=== PATIENT | male | born 1930 | race Caucasian/White ===

== ENCOUNTER 2017-10-13 22:43 | Emergency (ER) | payer MEDICARE, BC ==
[~2017-10-13 22:43] MED LIST: ISOVUE-370 76%-LOCM 1 ML ONE
--- NOTE | 2017-10-13 23:29 | RAD ---
SEMI UPRIGHT PORTABLE CHEST ONE VIEW: History: 87-year-old male with chest injury following an unwitnessed fall with hip and left rib pain. FINDINGS: Left ICD. Borderline heart size. Atherosclerosis and old granulomatous disease with some mild scatter ed chronic changes. No pneumothorax or pleural effusion. IMPRESSION: Atherosclerosis and old granulomatous disease and mild scattered chronic changes. No pneumothorax, pl eural effusion, or other acute process. POS: [facility]
--- NOTE | 2017-10-13 23:30 | RAD ---
AP PELVIS ONE VIEW: History: Pelvic pain following an unwitnessed fall. FINDINGS: There is bony demineralization. Status post total right hip replacement. Arthrosis changes of the lef t hip joint. No evidence for acute pelvic or hip fracture. IMPRESSION: No acute pelvic or left hip fracture. Right total hip replacement. POS: [facility]
--- NOTE | 2017-10-13 23:31 | RAD ---
RIGHT HIP TWO VIEWS: History: 87-year-old male with right hip pain following a fall. FINDINGS: Total right hip replacement changes are noted with some mild sinus ossificans. No acute fracture. IMPRESSION: No acute fracture or dislocation. POS: [facility]
[2017-10-14] MEDS ORDERED: Fentanyl 100 MCG/2 ML VIAL ONE (00:13)
[2017-10-14 00:31] LABS: POC Est. GFR-MDRD-African-Amer Greater than 60; POC Estimated GFR-MDRD 50
[2017-10-14] MEDS ORDERED: Acetaminophen 500 MG TAB ONE (02:10)
--- NOTE | 2017-10-14 10:15 | CT ---
PRELIMINARY REPORT/[facility]/EMERGENCY AFTER HOURS PROCEDURE: EXAM: CT Abdomen and Pelvis With Intravenous Contrast EXAM DATE/TIME: Exam ordered 10/14/2017 12:52 AM CLINICAL HISTORY: 87 years old, male; Pain; Abdominal pain; Generalized TECHNIQUE: Axial computed tomography images of the abdomen and pelvis with intravenous contrast. Coronal reforma tted images were created and reviewed. CONTRAST: 60 mL of ISOVUE administered intravenously. COMPARISON: No relevant prior studies available. FINDINGS: Lower thorax: There is subpleural atelectasis of the dependent portions of the lungs. Pacemaker leads in satisfactory position. ABDOMEN: Liver: There are no focal liver lesions present. Gallbladder and bile ducts: Normal. No calcified stones. No ductal dilation. Pancreas: The pancreas is normal. No ductal dilation. Spleen: The spleen is normal. Adrenals: The adrenal glands are normal. Kidneys and ureters: There are multiple simple renal cysts. No hydronephrosis. Stomach and bowel: The colon is normal. There is moderate colonic constipation. The stomach is normal . The duodenum is unremarkable. No obstruction. No mucosal thickening. Appendix: A normal appendix is identified. 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 Additional sma ller bladder diverticula are also present. Reproductive: Unremarkable as visualized. ABDOMEN and PELVIS: Intraperitoneal space: Normal. No free air. No significant fluid collection. Bones/joints: No acute fracture. No dislocation. Soft tissues: Normal. Vasculature: The vasculature demonstrates diffuse mild atherosclerotic calcification. No abdominal aortic aneurysm. Lymph nodes: Normal. No enlarged lymph nodes. IMPRESSION: 1. No acute abdominal pelvic pathology. 2. There is an incompletely evaluated 3.3 cm RIGHT urinary bladder diverticulum. Additional smaller b ladder diverticula are also present. If not already performed, consider nonemergent urology evaluatio n. Thank you for allowing us to participate in the care of your patient. Dictated and Authenticated by: Ricardo Downs MD 10/14/2017 1:31 AM Central Time ([place] & [place]) FINAL REPORT EMERGENT AFTER HOURS CT ABDOMEN AND PELVIS WITH IV CONTRAST: Date: 10-14-17 History: Right flank pain. Unwitnessed fall at long term. Dementia. Patient also complains of left hip and right sided rib pain. IMPRESSION: 1. Partial visualization of cardiac pacemaking leads in the right atrium and right ventricle. 2. Prominent degenerative changes within the lumbar spine and visualized lower thoracic spine with po st-surgical changes of the lumbar spine. Right total hip prosthesis is noted. 3. Coronary artery calcifications as well as vascular calcifications in the abdominal and iliac arter ies. 4. Approximately 4.6 cm right renal cyst. 5. Approximately 2.4 cm increased density cystic lesion mid portion left kidney which is difficult to further characterize. This could potentially represent a hyperdense renal cyst but pre contrast imag ing was not performed. 6. Mild thickening of the urinary bladder, some of which could be related to incomplete distention. I n addition, there is a right sided urinary bladder diverticulum. There is additional smaller divertic dianna also present involving the urinary bladder. 7. No CT evidence of appendicitis. 8. No free fluid or fluid collection seen in the abdomen or pelvis. 9. Findings are in agreement with the preliminary report by SHARON. Follow up CT scan abdomen and pelvi s with IV contrast and 3 phase imaging is suggested for evaluation of the left renal lesion and furth er evaluation of the urinary bladder diverticula. POS: [facility]
== END 2017-10-14 02:30 | disposition home or self-care (01) ==
LOC: ERS 22:43
DX: S70.02XA Contusion of left hip, initial encounter (principal); S20.211A Contusion of right front wall of thorax, initial encounter; F03.90 Unspecified dementia, unspecified severity, without behavioral disturbance, psychotic disturbance, mood disturbance, and anxiety; W19.XXXA Unspecified fall, initial encounter
CPT/HCPCS: 71010; 72170; 74177; 82565; 96374; J3010

== ENCOUNTER 2017-10-15 04:51 | Emergency (ER) | payer MEDICARE, BC ==
[2017-10-15 07:11] LABS: Bilirubin Negative (Negative); Blood, Urine Large (Negative); Glucose, Urine (Dipstick) Negative (Negative); Ketone, Urine Negative (Negative); Nitrite Negative (Negative); Protein, Urine (Dipstick) Negative (Neg-Trace); Urobilinogen 0.2 mg/dL (0.2-1.0)
[2017-10-15 07:12] LABS: Bacteria/HPF None Seen HPF (None Seen); Hyaline Casts/LPF 0-3 HYALINE CAST LPF (0-3 Hyaline); RBC/HPF GREATER THAN 50-TNTC HPF (0-3); Squamous Epithelial 0-3 HPF (0-3); WBC/HPF 0-3 HPF (0-3)
--- NOTE | 2017-10-15 08:40 | CT ---
PRELIMINARY REPORT/[facility]/EMERGENCY AFTER HOURS PROCEDURE: EXAM: CT Chest Without Intravenous Contrast EXAM DATE/TIME: 10/15/2017 6:53 AM CLINICAL HISTORY: 87 years old, male; Injury or trauma; Fall; Initial encounter; Sprain or strain; Additional info: Harshad with HX of dementia presents to er C/O r rib pain. Seen in er 10/13 after having fall in closet, C/O r sided chest and hip and general abd pain. They did CT abd pelvis, cxr, r hip, and r pelvis xray, all neg fo r any acute process. Sent home with dx with rib contusion and hip contusion. The overnight director client said pt started C/O r rib pain around 0230, gave tylenol and it didn't make him better so they decide d to bring him. TECHNIQUE: Axial computed tomography images of the chest without intravenous contrast. Coronal reformatted images were created and reviewed. COMPARISON: No relevant prior studies available. FINDINGS: Lungs: Lungs are well aerated without a focal area of consolidation. Pleural space: Unremarkable. No pneumothorax. No significant effusion. Heart: Calcification of the coronary arteries is present. No significant pericardial effusion. Bones/joints: Degenerative changes within the thoracic spine -Severe degenerative changes left and ri ght glenohumeral joint. No acute fracture. No dislocation. Hemangioma T5 Soft tissues: Unremarkable. Vasculature: Calcification of the aorta. Lymph nodes: Numerous calcified lymph nodes are present within the mediastinum and hilum. These are likely the radiographic manifestation of granulomatous disease. Tubes, lines and devices: -Pacemaker is present via a left subclavian approach. IMPRESSION: Lungs are well aerated without a focal area of consolidation. No clearly visualized rib fracture Thank you for allowing us to participate in the care of your patient. Dictated and Authenticated by: Severiano Morejon MD 10/15/2017 7:34 AM Central Time ([place] & [place]) FINAL REPORT CT CHEST WITHOUT CONTRAST: FINDINGS/IMPRESSION: I agree with the preliminary report provided. No definite displaced rib fractures evident. The bony h emangioma is at the T4 vertebral level rather than as described at T5. There are some areas of inters titial prominence involving the lungs. There are two areas of tree and bud nodularity seen within the lateral aspect of the right middle lobe which may reflect changes of a bronchiolitis. Small sub 4 mm pulmonary nodules are seen scattered throughout both lungs. No confluent airspace opacity is noted. There are calcified lymph nodes consistent with prior granulomatous disease. There are coronary arter y and thoracic aorta calcifications. POS: [facility]
== END 2017-10-15 08:47 | disposition home or self-care (01) ==
LOC: ERS 04:51
DX: S20.211A Contusion of right front wall of thorax, initial encounter (principal); I10 Essential (primary) hypertension; F03.90 Unspecified dementia, unspecified severity, without behavioral disturbance, psychotic disturbance, mood disturbance, and anxiety; W19.XXXA Unspecified fall, initial encounter
CPT/HCPCS: 71250; 81003; 81015

== ENCOUNTER 2018-04-26 16:50 | Emergency (ER) | payer MEDICARE, BC ==
[2018-04-26] MEDS ORDERED: Adacel (T-DAP) 0.5 ML VIAL ONE (17:10)
--- NOTE | 2018-04-26 17:50 | CT ---
CT OF THE BRAIN WITHOUT CONTRAST: Date: 04/26/18 COMPARISON: None. HISTORY: Fell and hit head prior to arrival. Unknown loss of consciousness. Head injury. TECHNIQUE: Multiple contiguous axial images were obtained in a CT of the brain without contrast. FINDINGS: There are scattered hypodensities in the subcortical and periventricular white matter, likely seconda ry to small vessel ischemic disease. No large confluent infarction is seen. There is no evidence of h ydrocephalus, intracranial hemorrhage or extra-axial fluid collections. The calvarium and overlying soft tissues are unremarkable. The visualized paranasal sinuses and masto id air cells are well aerated. IMPRESSION: No evidence of acute intracranial abnormality. POS: [facility]
--- NOTE | 2018-04-26 17:57 | CT ---
CT OF THE CERVICAL SPINE WITHOUT CONTRAST: Date: 04/26/18 COMPARISON: None. HISTORY: Fell and hit head just prior to arrival. Neck pain. TECHNIQUE: Multiple contiguous axial images were obtained in a CT of the cervical spine without contrast. Sagitt al and coronal reformats were performed. FINDINGS: There are large, bulky osteophytes in the anterior aspect of the cervical spine. The vertebral bodies demonstrate normal height without acute fracture or subluxation. No prevertebral soft tissue swellin g is seen The posterior facets are well aligned. Normal alignment of the skull base with the cervical spine is seen. Calcified granuloma in the right lung apex. Thyroid is unremarkable. IMPRESSION: Degenerative changes of the cervical spine without acute osseous abnormality. POS: [facility]
--- NOTE | 2018-04-26 17:58 | RAD ---
SINGLE VIEW PELVIS: Date: 04/26/18 COMPARISON: 10/13/17. HISTORY: Fall from standing and hit head on unknown object. Pelvic pain. FINDINGS: Single view of the pelvis shows no evidence of acute fracture or dislocation. The patient has a right hip prosthesis without perihardware lucency or fracture. No significant degenerative changes are see n in the left hip. Degenerative changes are seen in the lumbar spine. IMPRESSION: No evidence of acute osseous abnormality. POS: [facility]
== END 2018-04-26 18:46 | disposition home or self-care (01) ==
LOC: ERS 16:50
DX: S00.01XA Abrasion of scalp, initial encounter (principal); I10 Essential (primary) hypertension; M19.90 Unspecified osteoarthritis, unspecified site; F03.90 Unspecified dementia, unspecified severity, without behavioral disturbance, psychotic disturbance, mood disturbance, and anxiety; Z79.899 Other long term (current) drug therapy; Z23 Encounter for immunization; W18.30XA Fall on same level, unspecified, initial encounter
CPT/HCPCS: 70450; 72125; 72170; 90471; 90715

== ENCOUNTER 2018-05-14 15:44 | Outpatient (CLI) | payer MEDICARE, BC | END 2018-05-14 15:45 | disposition home or self-care (01) | LOC: BICRAD 15:44 | PROVIDERS: ATTEND Nurse Practitioner Family | DX: M54.9 Dorsalgia, unspecified (principal); M41.9 Scoliosis, unspecified; M47.896 Other spondylosis, lumbar region; M47.894 Other spondylosis, thoracic region; M47.892 Other spondylosis, cervical region | CPT/HCPCS: 72040; 72070; 72100 ==

== ENCOUNTER 2018-05-26 21:03 | Inpatient (IN) | payer MEDICARE, BC ==
--- NOTE | 2018-05-26 21:47 | RAD ---
AP VIEW OF THE CHEST: 05/26/18 INDICATION: residential patient with dementia with altered mental status. FINDINGS: Chronic lung changes are stable. Dual lead pacemaker is unchanged. Pulmonary vasculature is within no rmal limits. No pleural effusion or pneumothorax is evident. No acute osseous abnormality is evident. IMPRESSION: No acute cardiopulmonary abnormality. POS: [facility]
[2018-05-26 22:06] LABS: Mean Corpuscular HGB CONC 34.6 g/dL (32.0-36.0); Mean Corpuscular Hemoglobin 36.3 pg (27.0-31.0); Mean Platelet Volume 6.9 fL (7.4-10.4); Platelet Count 151 thou/uL (130-400); RBC Distribution Width 13.2 % (11.5-14.5); Red Blood Cell (RBC) Count 2.75 mill/uL (4.70-6.10); White Blood Cell (WBC) Count 5.8 thou/uL (4.8-10.8)
[2018-05-26 22:19] LABS: #Eosinphils 0.1 thou/uL (0.0-0.7); #Lymphocytes 0.5 thou/uL (1.20-3.40); #Monocytes 0.6 thou/uL (0.11-0.59); #Neutrophils 4.7 thou/uL (1.40-6.50); %Basophils 0.2 % (0.0-1.0); %Eosinophils 1.5 % (0.0-10.0); %Lymphocytes 7.7 % (21.0-51.0); %Monocytes 9.7 % (0.0-10.0); %Neutrophils 80.9 % (42.0-75.0); MDiff Complete? YES; Macrocytosis SLIGHT = 6-15 cells (100X) (0-5/hpf); Ovalocytes SLIGHT = 2-5 cells (100X) (0-1/hpf)
[2018-05-26 22:30] LABS: ALT (SGPT) 12 U/L (8-55); AST (SGOT) 12 U/L (5-34); Albumin 3.2 g/dL (3.4-4.8); Alkaline Phosphatase 123 U/L (40-150); Anion Gap 13 mmol/L (10-20); BUN (Urea Nitrogen) 58 mg/dL (8.4-25.7); Bilirubin, Total 0.9 mg/dL (0.2-1.2); CK (CPK) 29 U/L (30-200); Calc. Creatinine Clearance 0 mL/min (70-130); Calcium 9.1 mg/dL (7.8-10.44); Carbon Dioxide 24 mmol/L (23-31); Chloride 107 mmol/L (98-107); Estimated GFR-MDRD 41; Globulin 2.8 g/dL (2.4-3.5); Glucose 113 mg/dL (83-110); Lipase 34 U/L (8-78); Potassium 4.1 mmol/L (3.5-5.1); Sodium 140 mmol/L (136-145)
[2018-05-26 22:32] LABS: CKMB 2.9 ng/mL (0-6.6); Troponin I 0.113 ng/mL (< 0.028)
--- NOTE | 2018-05-26 23:35 | CT ---
CT OF THE BRAIN WITHOUT CONTRAST: 05/26/18 INDICATION: Altered mental status and dementia. COMPARISON: Prior exam dated 04/26/18. FINDINGS: No acute infarct, hemorrhage or hydrocephalus is present. Generalized cerebral and cerebellar atrophy is stable. Mild chronic small white matter ischemic change is similar appearing. Skull and extracran ial soft tissues appear within normal limits. IMPRESSION: No acute intracranial abnormality. POS: [facility]
[2018-05-27 04:17] LABS: Troponin I 0.128 ng/mL (< 0.028)
--- NOTE | 2018-05-27 04:43 | HP ---
CHIEF COMPLAINT: Diarrhea, weakness. HISTORIAN: Patient's daughter reliable. HISTORY OF PRESENT ILLNESS: This is an 87-year-old male with past medical history of dementia, arthritis, hypertension, hearing deficit, status post pacemaker, presented with diarrhea for about 3 days per the daughter. Patient has been having diarrhea for 3 days and patient has been getting weaker and weaker. Patient has been losing weight due to constant diarrhea. Per the daughter, patient was started on Imodium, but Imodium did not have any help. Apparently, his diarrhea has been worsening and has a foul smell to it. However , per daughter, patient is around his baseline. Patient has history of dementia. Therefore, patient is able to just recognize the daughter and also patient knows himself. Per daughter, patient is also having associated symptoms of cough, which has also started about a day ago. REVIEW OF SYSTEMS: Positive for cough and diarrhea with fatigue and negative for all other ones that are stated in the HPI. PAST MEDICAL HISTORY: DM, arthritis, hypertension, s/ pacemaker PSH: S/p pace maker FH: Patient parents are and family history are not contributory to this visit Social Hx: Non smoker, Doesn't drink, no illicit drug use Allergies: NSAIDS CODE STATUS: Patient is FULL CODE. CURRENT MEDICATIONS: 1. Patient is on donepezil 10 mg. 2. Fluticasone spray. 3. Patient takes meloxicam 15 mg a daily. 4. Patient takes Namenda 5 mg oral 2 times a daily. 5. Patient takes Tylenol 650 mg oral every 6 hours p.r.n. 6. Patient takes B complex vitamin B12 orally a daily. 7. Patient takes vitamin C. 8. Patient takes vitamin D3. PHYSICAL EXAMINATION: VITAL SIGNS: In the ED, patient's vital was 134/72, pulse of 64, respiratory rate 16, temperature is 98.7 on admission. Patient's vital was 128/81, pulse 68 , respiratory rate of 16, temperature of 98.3. GENERAL APPEARANCE: Patient is lying in bed comfortably, not in any acute distress. HEENT: Normocephalic, atraumatic. Pupils equal, round, and reactive to light. Extraocular movements are intact. No scleral icterus was noted. NECK: No JVD. Trachea is midline. RESPIRATORY: Patient has cough with some wheezes at the anterior lung shook, but no rhonchi is appreciated. CARDIAC: Positive S1, S2. Regular rate and rhythm. ABDOMEN: Patient has some tenderness with palpation of the abdomen especially at the epigastric region and lower quadrants; however, no ecchymosis noted. No masses palpated. EXTREMITIES: Patient has 5/5 upper extremity strength and 4/5 lower extremity strength. The patient had mild edema as noted in the lower extremities. Pulses are intact bilaterally in the lower extremities. NEUROLOGIC: No focal neurologic deficits noted. Patient is currently oriented to person, but not to place, not to time. SKIN: Warm, dry, and intact. LABORATORY DATA: CT of the head without contrast, negative for any intracranial abnormalities. Troponin ordered was 0.113. Chemistry: BUN 58, creatinine is 1.61. Chest x-ray shows no acute cardiopulmonary abnormality. CBC shows white count of 5.8, hemoglobin of 10.0, hematocrit of 28.8, platelet of 151. ASSESSMENT AND PLAN: 1. Diarrhea most likely due to Clostridium difficile. Patient has been started empirically on vancomycin p.o. 125. We will get Clostridium difficile of the stool. We will follow up on the Clostridium difficile order. We will do CT of the abdomen and pelvis. IVF. Contact precaution. 2. Cough. We will rule out pneumonia. We will get CT of the chest, abdomen, and pelvis. 3. Acute kidney injury most likely due to dehydration. We will give patient IV fluids for hydration. We will follow up morning BMP. 4. Macrocytic anemia. At this point, H&H is 10.0. We will get B12 levels and we will start patient on iron pills if needed. Patient takes home B12 pills we will continue this medication. We will continue to follow CBC to trend the hemoglobin. 5. Hypertension. We will monitor patient's blood pressure closely. We will give the patient hypertensive medication if needed. 6. History of arthritis, currently stable. 7. Dementia. We will restart the patient's medications. Patient has dementia medications. 8. Deep venous thrombosis and gastrointestinal prophylaxis. We will start patient on heparin prophylactically and will do SCDs. We will do Pepcid for GI prophylaxis. MTDD
[2018-05-27] MEDS ORDERED: Vancomycin HCl 1 GM in Premix Bag 1 BAG IVPB SCH (05:00)
[2018-05-27] MEDS ORDERED: Piperacillin/Tazobactam 2.25 GM in Sodium Chloride 0.9% 100 ML IVPB SCH ×2 (05:00→09:00)
[2018-05-27] MEDS ORDERED: Sodium Chloride 0.9% 1,000 ML IV SCH (05:00)
[2018-05-27 05:49] LABS: #Eosinphils 0.1 thou/uL (0.0-0.7); #Lymphocytes 0.4 thou/uL (1.20-3.40); #Monocytes 0.5 thou/uL (0.11-0.59); %Eosinophils 2.6 % (0.0-10.0); %Lymphocytes 8.7 % (21.0-51.0); %Monocytes 9.7 % (0.0-10.0); %Neutrophils 79.1 % (42.0-75.0); Hemoglobin 9.4 g/dL (14.0-18.0); Mean Corpuscular HGB CONC 33.7 g/dL (32.0-36.0); Mean Corpuscular Hemoglobin 35.5 pg (27.0-31.0); Mean Platelet Volume 7.5 fL (7.4-10.4); Platelet Count 137 thou/uL (130-400); RBC Distribution Width 13.1 % (11.5-14.5); Red Blood Cell (RBC) Count 2.64 mill/uL (4.70-6.10)
[2018-05-27 05:54] LABS: ALT (SGPT) 12 U/L (8-55); AST (SGOT) 10 U/L (5-34); Alkaline Phosphatase 114 U/L (40-150); Anion Gap 14 mmol/L (10-20); BUN (Urea Nitrogen) 57 mg/dL (8.4-25.7); Bilirubin, Total 0.8 mg/dL (0.2-1.2); Calc. Creatinine Clearance 30 mL/min (70-130); Calcium 9.2 mg/dL (7.8-10.44); Carbon Dioxide 22 mmol/L (23-31); Chloride 108 mmol/L (98-107); Estimated GFR-MDRD 44; Globulin 2.7 g/dL (2.4-3.5); Glucose 128 mg/dL (83-110); Protein, Total 5.7 g/dL (5.8-8.1); Sodium 140 mmol/L (136-145)
[2018-05-27 05:59] LABS: CKMB 2.5 ng/mL (0-6.6); Troponin I 0.129 ng/mL (< 0.028)
--- NOTE | 2018-05-27 06:09 | PDOC.EVN ---
Event Note - Event Note Event Note: RN called - Pt had SVT on tele. Will check Mg
[2018-05-27] MEDS: Piperacillin/Tazobactam 2.25 GM in Sodium Chloride 0.9% 100 ML IVPB SCH ×4 (06:30→23:08)
[2018-05-27 07:33] LABS: Bilirubin Negative (Negative); Blood, Urine Moderate (Negative); Glucose, Urine (Dipstick) Negative (Negative); Leukocyte Small (Negative); Nitrite Negative (Negative); Protein, Urine (Dipstick) Trace mg/dL (Neg-Trace); Specific Gravity, Urine 1.019 (1.002-1.036); Urobilinogen 0.2 mg/dL (0.2-1.0); pH, Urine 5.5 (5.0-9.0)
[2018-05-27 07:36] LABS: Hyaline Casts/LPF 4-6 HYALINE CAST LPF (0-3 Hyaline); RBC/HPF 21-50 HPF (0-3); Squamous Epithelial 0-3 HPF (0-3)
[2018-05-27 07:42] LABS: Yeast-AUWi Flag 57.8 (0-25.0)
[2018-05-27 07:53] LABS: Clarity Cloudy (Clear)
[2018-05-27 07:56] LABS: Bacteria/HPF 1+ HPF (None Seen)
[2018-05-27 07:59] LABS: Yeast-All Forms None Seen HPF (None Seen)
[2018-05-27] MEDS ORDERED: Amiodarone HCl 150 MG, Admixture Fee 1 EACH in Dextrose 5% in Water 100 ML IVPB SCH (08:45)
[2018-05-27] MEDS ORDERED: Amiodarone HCl 450 MG, Admixture Fee 1 EACH in Dextrose 5% in Water 250 ML IVPB SCH (09:00)
--- NOTE | 2018-05-27 09:06 | CON ---
DATE OF CONSULTATION: 05/27/2018 REASON FOR CONSULTATION: Wide complex tachycardia. HISTORY OF PRESENT ILLNESS: Mr. Bailey is an 87-year-old gentleman with underlying history of ICD/pa cer placed in [place]. The details around the placement are unknown. He has no previous history of underlying coronary artery disease or bypass surgery. This was performed in [place]. He recently presented with recurrent diarrhea over the last several days. There was a concern for C. difficile. He was subsequently admitted. On telemetry monitoring, he continued to have intermitten t runs of wide complex tachycardia, although appeared irregular. Blood pressure was fairly stable. Given his underlying dementia, the history is limited. Most of the history is obtained from his daug hterCoreen, whom I spoke with today. PAST MEDICAL HISTORY: As above. HOME MEDICATIONS: Include Namenda, Tylenol, B complex, multiple vitamins, Flonase and benazepril. SOCIAL HISTORY: No current tobacco or alcohol use. REVIEW OF SYSTEMS: Unobtainable. He has underlying dementia. PHYSICAL EXAMINATION: VITAL SIGNS: Blood pressure 120/58, pulse 75, temperature 98.5. GENERAL: He is not oriented to time, person, or place. NEUROLOGIC: The patient is alert and oriented times 3 with no focal neurologic deficits. HEENT: Sclerae without icterus. Mouth has moist mucous membranes with normal pallor. NECK: No JVD. Carotid upstroke brisk. No bruits bilaterally. LUNGS: Clear to auscultation with unlabored respirations. BACK: No scoliosis or kyphosis. CARDIAC: Regular rate and rhythm with normal S1 and S2. No S3 or S4 noted. No significant rubs, mu rmurs, thrills, or gallops noted throughout the precordium. PMI is not displaced. There is no ilir ternal heave. ABDOMEN: Soft, nontender, nondistended. No peritoneal signs present. No hepatosplenomegaly. No ab normal striae. EXTREMITIES: 2+ femoral and 2+ dorsalis pedis pulses. No cyanosis, clubbing, or edema. SKIN: No gross abnormalities. PERTINENT LABORATORY DATA: Hemoglobin 9.4, creatinine 1.51, peak troponin is 0.129. Telemetry monitoring shows wide a complex tachycardia and appears paced. He has intermittent atrial sensed, ventricular paced. IMPRESSION: 1. Wide complex tachycardia. 2. Status post pacemaker/ICD. 3. Dementia. RECOMMENDATIONS: Add amiodarone IV due to continued elevated heart rate. This does appear to be con sistent with SVT, but we will assess via pacer/ICD with interrogation. May also involve EP. Continu e antibiotic treatment. He has been cultured for Clostridium difficile.
[2018-05-27 09:44] LABS: ALT (SGPT) 11 U/L (8-55); AST (SGOT) 10 U/L (5-34); Albumin 3.1 g/dL (3.4-4.8); Alkaline Phosphatase 115 U/L (40-150); Bilirubin, Direct 0.4 mg/dL (0.1-0.3); Bilirubin, Total 0.8 mg/dL (0.2-1.2); Protein, Total 5.7 g/dL (5.8-8.1)
[2018-05-27] MEDS ORDERED: Sodium Chloride 0.9% 500 ML IVPB SCH (10:30)
[2018-05-27] MEDS: Vancomycin HCl 25 MG/ML Oral PO SCH ×3 (10:44→20:18)
[2018-05-27] MEDS: Sodium Chloride 0.9% 1,000 ML IV SCH ×3 (10:47→23:08)
--- NOTE | 2018-05-27 14:38 | CON ---
DATE OF CONSULTATION: 05/27/2018 REASON FOR CONSULTATION: Acute kidney injury. REASON FOR ADMISSION: Diarrhea. HISTORY OF PRESENT ILLNESS: This is an 87-year-old elderly male with a past medical history positive for dementia, hypertension, arthritis, came to the hospital with diarrhea and was found to have acut e kidney injury. His creatinine was 1.6 and this morning was 1.61. The patient was started on IV fluids. The patient was not able to give a good history. The patient does have dementia. No fevers, chills, no nausea, vomiting. PAST MEDICAL HISTORY: Positive for dementia, hypertension, arthritis. PAST SURGICAL HISTORY: Not known. HOME MEDICATIONS: Donepezil, meloxicam, Namenda and vitamin C, D3. ALLERGIES: NSAIDs. SOCIAL HISTORY: No smoking, alcohol, or illicit drug abuse. FAMILY HISTORY: No history of kidney disease. REVIEW OF SYSTEMS: Could not be obtained due to dementia and patient was lethargic. PHYSICAL EXAMINATION: GENERAL: Elderly white male, lethargic, somnolent. VITAL SIGNS: Temperature 98.5, pulse 75, respiratory rate 18, blood pressure 122/50. LABORATORY DATA: Potassium 4.0, BUN is 57, creatinine is 1.5, bicarbonate is 22. Hemoglobin is 9.4. ASSESSMENT AND PLAN: 1. Acute kidney injury on chronic kidney stage 3, most likely from volume depletion. Agree with hyd ration and monitor. 2. Hypoalbuminemia, moderate. 3. Metabolic acidosis. 4. Anemia, rule out bleed. 5. Hypertension, stable. 6. Continue IV fluids. Continue supportive care. Will follow. Thank you for the consult.
[2018-05-27] MEDS ORDERED: Iopamidol 370 76% 100 ML VIAL ONE (15:14)
--- NOTE | 2018-05-27 15:24 | PDOC.PN ---
- Subjective Encounter Start Date: 05/27/18 Encounter Start Time: 08:40 Pt seen for followup re: diarrhea. Pt is nonverbal, unable to complete ROS. - Objective MAR Reviewed: Yes Vital Signs & Weight: Vital Signs (12 hours) Temp Pulse Resp BP Pulse Ox 05/27/18 12:13 99.5 F 74 21 H 139/64 94 L 05/27/18 07:57 98.5 F 75 19 122/58 L 95 05/27/18 04:00 97.8 F 79 18 96/55 L 95 Weight Admit Weight 143 lb Weight 143 lb I&O: 05/26/18 05/27/18 05/28/18 06:59 06:59 06:59 Intake Total 333 Output Total 100 Balance 233 Result Diagrams: 05/28/18 08:24 05/28/18 08:24 EKG Reviewed by me: Yes (Tele: NSR, SVT) Phys Exam - Physical Examination appears frail HEENT: moist MMs, sclera anicteric, oral pharynx no lesions, 2+ tonsils Neck: no nodes, no JVD, supple, full ROM Respiratory: no wheezing, no rales, no rhonchi, clear to auscultation bilateral Cardiovascular: RRR, no rub S1, S2 Gastrointestinal: soft, non-tender, no distention, positive bowel sounds Musculoskeletal: no edema Neurological: moves all 4 limbs Psychiatric: normal affect Deviation from normal: Unable to assess orientation Dx/Plan (1) Diarrhea Code(s): R19.7 - DIARRHEA, UNSPECIFIED Status: Acute Comment: await stool C. diff test, continue vancomycin (2) SVT (supraventricular tachycardia) Code(s): I47.1 - SUPRAVENTRICULAR TACHYCARDIA Status: Acute Comment: monitor potassium and magnesium, consult cardiology (3) LETI (acute kidney injury) Code(s): N17.9 - ACUTE KIDNEY FAILURE, UNSPECIFIED Status: Acute Comment: glenda prerenal, continue IV fluids and recheck creatinine (4) Moderate protein-calorie malnutrition Code(s): E44.0 - MODERATE PROTEIN-CALORIE MALNUTRITION Status: Chronic - Plan * . Review of Systems - Medications/Allergies Allergies/Adverse Reactions: Allergies Allergy/AdvReac Type Severity Reaction Status Date / Time NSAIDS (Non-Steroidal Allergy Verified 05/27/18 04:51 Anti-Inflamma Medications: Current Medications Piperacillin Sod/Tazobactam (Sod 2.25 gm/ Sodium Chloride) 100 mls @ 200 mls/ hr IVPB Q6HR [facility] Last Admin: 05/27/18 12:16 Dose: 100 mls Amiodarone HCl 450 mg/Miscellaneous Medication 1 each/ Dextrose/Water 259 mls @ 0 mls/hr IVPB INF [facility] Last Admin: 05/27/18 09:39 Dose: 259 mls Sodium Chloride (Normal Saline 0.9%) 1,000 mls @ 150 mls/hr IV .[id number] [facility] Last Admin: 05/27/18 12:16 Dose: 1,000 mls Sodium Chloride (Flush - Normal Saline) 10 ml IVF Q12HR [facility] Last Admin: 05/27/18 10:10 Dose: Not Given Sodium Chloride (Flush - Normal Saline) 10 ml IVF PRN PRN PRN Reason: Saline Flush Vancomycin HCl (First Vancomycin) 125 mg PO TID [facility] Last Admin: 05/27/18 10:44 Dose: 125 mg
--- NOTE | 2018-05-27 15:33 | CT ---
CONTRAST ENHANCED CT IMAGES OF CHEST CONTRAST ENHANCED CT IMAGES OF THE ABDOMEN AND PELVIS: History: Diarrhea. Patient is a poor historian. History of possible colitis. Oral contrast was not given as the patient could not tolerate oral contrast. A total of 60 ml of iodi nated contrast was given intravenously. FINDINGS: Images demonstrate an intracardiac pacing device. There is atherosclerotic calcification of the aorta and coronary arteries. There is an approximately 4 mm area of spiculated density in the right upper lobe. This lesion is too small to characterize. In addition, multiple other small lung parenchymal densities also seen in the left upper lobe (Image 29), lingula (Image 37). These may represent areas of scarring although metas tatic disease cannot be excluded. In addition tiny lung parenchymal lesions also seen in the right lo wer lobe. Additional lesions also seen in the left lower lobe. Some calcifications seen in the subcarinal lymph nodes. The liver and spleen are unremarkable. The gallbladder is distended without evidence of obvious galls tones. Adrenal glands are unremarkable. Bilateral hypodense renal lesion seen, most compatible with r enal cortical cysts and cystic lesions. Correlation with sonography may be of use to further charlxeie hernandez. The patient has had extensive facet degenerative changes and hypertrophy with spinal stenosis and pos terior lumbar laminectomy changes. The loops of small bowel are not significantly dilated. The colon is not significantly distended. No significant evidence of colonic enhancement seen. The urinary blad mary is slightly thickened. There appears to be a right sided hypodense cystic lesion adjacent to the urinary bladder, possibly representing a right bladder diverticulum. IMPRESSION: 1. Numerous small lung parenchymal lesions, too small to characterize. Metastatic disease cannot be e xcluded although these may represent area of previous scarring. 2. Areas of calcification seen in the mediastinal lymph nodes, possibly due to previous infectious et iologies. 3. Extensive coronary artery and valvular calcifications. 4. Hypodense area seen in the kidneys, possibly representing renal cysts. 5. Previous lumbar spine surgical changes. 6. No definite evidence of extensive colonic enhancement or thickening is seen. 7. No definite evidence of bowel obstruction or ileus or evidence of free intraperitoneal air seen. POS: [facility]
[2018-05-28] MEDS: Piperacillin/Tazobactam 2.25 GM in Sodium Chloride 0.9% 100 ML IVPB SCH ×3 (05:46→17:37)
[2018-05-28 09:05] LABS: Hemoglobin 8.5 g/dL (14.0-18.0); Mean Corpuscular HGB CONC 33.3 g/dL (32.0-36.0); Mean Corpuscular Hemoglobin 35.4 pg (27.0-31.0); Mean Platelet Volume 7.1 fL (7.4-10.4); Platelet Count 147 thou/uL (130-400); RBC Distribution Width 13.2 % (11.5-14.5); Red Blood Cell (RBC) Count 2.41 mill/uL (4.70-6.10); White Blood Cell (WBC) Count 8.5 thou/uL (4.8-10.8)
[2018-05-28 09:13] LABS: Anion Gap 13 mmol/L (10-20); BUN (Urea Nitrogen) 37 mg/dL (8.4-25.7); Calc. Creatinine Clearance 39 mL/min (70-130); Calcium 8.9 mg/dL (7.8-10.44); Carbon Dioxide 21 mmol/L (23-31); Chloride 114 mmol/L (98-107); Estimated GFR-MDRD 56; Glucose 110 mg/dL (83-110); Potassium 3.9 mmol/L (3.5-5.1); Sodium 144 mmol/L (136-145)
[2018-05-28 09:39] LABS: Acanthocytes SLIGHT = 1-5 cells (100X) (None Seen); Band 29 % (5-11); Eosinophils 2 % (0-10); Lymphocytes 7 % (21-51); MDiff Complete? YES; Macrocytosis SLIGHT = 6-15 cells (100X) (0-5/hpf); Monocytes 2 % (0-10); Neutrophil 60 % (42-75); Ovalocytes SLIGHT = 2-5 cells (100X) (0-1/hpf); PLT Morphology Comment Appears Adequate; Toxic Granulation SLIGHT
[2018-05-28] MEDS: Sodium Chloride 0.9% 1,000 ML IV SCH ×3 (09:48→23:04)
[2018-05-28] MEDS: Vancomycin HCl 25 MG/ML Oral PO SCH ×3 (09:49→21:50)
--- NOTE | 2018-05-28 10:40 | PQF ---
CLINICAL DOCUMENTATION IMPROVEMENT CLARIFICATION FORM: ICD-10 Updated PLEASE DO AN ADDENDUM TO THE PROGRESS NOTE WITH ANY DOCUMENTATION UPDATES OR ADDITIONS AND CARRY THROUGH TO DC SUMMARY. THANK YOU. DATE: 05/28 ATTN: DR. JAIRO HUERTA Please exercise your independent, professional judgment in responding to the clarification form. Clinical indicators are provided on the bottom of this form for your review. Please check appropriate box(s): [ ] Demand Ischemia [ ] Insignificant Lab Value [ ] Other diagnosis [ X ] Unable to determine For continuity of documentation, please document condition throughout progress notes and discharge summary. Thank You. CLINICAL INDICATORS - SIGNS / SYMPTOMS/ LABS are present in the medical record: TROPONIN I 05/26 - 8: 0.113, 0.128, 0.129 ER PHYSICIAN DOCUMENTATION 05/26: INDETERMINATE TROPONIN RISK FACTORS: DIARRHEA ADVANCED AGE (87) LETI DEHYDRATION TREATMENT: SERIAL CARDIAC ENZYMES IVF (NS 05/26 - PRESENT) CARDIOLOGY CONSULT THANK YOU! Jaycee (This form is maintained as a part of the permanent medical record) 2014 [employer]. All Rights Reserved Jaycee Rosas RN, BSN [email or web address] Office: [phone] MARY
--- NOTE | 2018-05-28 10:46 | PQF ---
CLINICAL DOCUMENTATION IMPROVEMENT CLARIFICATION FORM: ICD-10 Updated PLEASE DO AN ADDENDUM TO THE PROGRESS NOTE WITH ANY DOCUMENTATION UPDATES OR ADDITIONS AND CARRY THROUGH TO DC SUMMARY. THANK YOU. DATE: 05/28 ATTN: DR. JAIRO HUERTA Please exercise your independent, professional judgment in responding to the clarification form. Clinical indicators are provided on the bottom of this form for your review. Please check appropriate box(s): ___X____ I (concur) with the Nursing Admission Skin Assessment findings as stated below. [ ] Pressure Ulcer: (Stage I: Erythema; Stage II: Partial thickness; Stage III : Full thickness; Stage IV: Necrosis to muscle/bone) [ ] Location: POA: [ ] Yes [ ] No [ ] Unable to determine Stage (I to IV): (Left Right Bilateral N/A ) [ ] Location: POA: [ ] Yes [ ] No [ ] Unable to determine Stage (I to IV): (Left Right Bilateral N/A ) [ ] No pressure ulcer diagnosis [ ] Other diagnosis [ ] Unable to determine In addition, please specify: Present on Admission (POA): [ X ] Yes [ ] No [ ] Unable to determine For continuity of documentation, please document condition throughout progress notes and discharge summary. Thank You. CLINICAL INDICATORS - SIGNS / SYMPTOMS / LABS NURSING ADMISSION SKIN ASSESSMENT 05/27: MIDLINE UPPER BACK STAGE II PRESSURE ULCER; BILATERAL UNDER BUTTOCKS STAGE II PRESSURE ULCERS RISK FACTORS: ADVANCED DEMENTIA MODERATE PROTEIN CALORIE MALNUTRITION ADVANCED AGE (87) TREATMENTS: WAFFLE MATTRESS TURN Q 2HRS THANK YOU! Jaycee (This form is maintained as a part of the permanent medical record) 2014 [employer]. All Rights Reserved Jaycee Rosas RN, BSN [email or web address] Office: [phone] MARY
--- NOTE | 2018-05-28 11:04 | PQF ---
CLINICAL DOCUMENTATION IMPROVEMENT CLARIFICATION FORM: ICD-10 Updated PLEASE DO AN ADDENDUM TO THE PROGRESS NOTE WITH ANY DOCUMENTATION UPDATES OR ADDITIONS AND CARRY THROUGH TO DC SUMMARY. THANK YOU. DATE: 05/28 ATTN: DR. JAIRO HUERTA Please exercise your independent, professional judgment in responding to the clarification form. Clinical indicators are provided on the bottom of this form for your review. Please check appropriate box(s) to clarify if the following diagnosis has been ruled in or ruled out: RULE OUT PNEUMONIA [ ] Ruled in diagnosis [ ] Continue to treat [ ] Resolved [ X ] Ruled out diagnosis [ ] Other diagnosis [ ] Unable to determine For continuity of documentation, please document condition throughout progress notes and discharge summary. Thank You. CLINICAL INDICATORS - SIGNS / SYMPTOMS / LABS PHYSICIAN H&P DOCUMENTATION 05/26: ASSESSMENT & PLAN: 2) COUGH. WE WILL RULE OUT PNEUMONIA. WE WILL GET CT OF CHEST/ABDOMEN/PELVIS SPEECH CONSULT DOCUMENTATION 05/27: SWALLOWING EVALUATION: PT WAS OBSERVED W/ STRAW SIPS OF THIN LIQUID (BOTH CONTROLLED & UNCONTROLLED). INSTRUMENT MAKER APPRENTICE OBSERVED PT WITH COUGHING/CHOKING FOLLOWING BOTH ADMINISTRATIONS OF THIN BY STRAW. PT WAS ALSO OBSERVED WITH THIN BY CUP (PT ADMINISTERED) AND INSTRUMENT MAKER APPRENTICE OBSERVED PT WITH WET BREATH SOUNDS VIA CERVICAL AUSCULTATION WELL COUGHING FOLLOWING THE THIN SWALLOW. PT ABLE TO TOLERATE SIPS OF NECTAR BY SPOON & CUP. INSTRUMENT MAKER APPRENTICE RECOMMENDS PT BE CLEARED FOR PUREE PLUS SAUCE WITH NECTAR THICK LIQUIDS BY CUP OR SPOON. PT WILL REQUIRE USE OF A FEEDER. RISK FACTORS: ADVANCED AGE (87) DEMENTIA COUGH TREATMENTS: SPEECH CONSULT W/RECOMMENDATION FOR PUREE PLUS SAUCE W/ NECTAR THICK LIQUIDS CT CHEST/ABDOMEN/PELVIS (05/27) THANK YOU! Jaycee (This form is maintained as a part of the permanent medical record) 2014 [employer]. All Rights Reserved Jaycee Rosas RN, BSN [email or web address] Office: [phone] [facility]
--- NOTE | 2018-05-28 13:43 | PDOC.CTH ---
Cardiology Progress Note - Subjective Pt looks much better today. after IVF, HR now stable and is in the 80's. - Objective Vital Signs Temp Pulse Resp BP Pulse Ox 05/28/18 12:12 97.9 F 71 20 154/72 H 96 05/28/18 09:47 98.2 F 64 17 152/66 H 96 05/28/18 04:00 97.5 F L 66 18 145/65 H 96 Admit Weight 143 lb Weight 149 lb 1.6 oz 05/27/18 05/28/18 05/29/18 06:59 06:59 06:59 Intake Total 4183 Output Total 100 Balance 4083 - Physical Examination General/Neuro: NAD Neck: carotid US brisk, no JVD present Lungs: CTA, other: (upper airwqay breath sounds) Heart: RRR Abdomen: soft Extremities: + femoral B - Labs Result Diagrams: 05/28/18 08:24 05/28/18 08:24 Troponin/CKMB CK-MB (CK-2) 2.5 ng/mL (0-6.6) 05/27/18 04:00 Troponin I 0.129 ng/mL (< 0.028) H 05/27/18 04:00 - Assessment/Plan 1. WCT 2. C. Dificile Pt responded to IVF. DC tele Abx I will follow peripherally
--- NOTE | 2018-05-28 17:42 | PRG ---
DATE OF SERVICE: 05/28/2018 SUBJECTIVE: Patient was seen and examined at bedside and overnight events noted. Patient denies any shortness of breath or chest pain or palpitation. No history of nausea or vomiting or diarrhea or f ever or chills or cramps. OBJECTIVE: GENERAL: This is an elderly male in no apparent distress. VITAL SIGNS: Temperature 97.8, pulse 100, respiratory rate 18, blood pressure 138/99. HEENT: Atraumatic, normocephalic. Oral mucosa is moist. NECK: Supple. CARDIOVASCULAR: S1, S2 heard. Rate and rhythm regular. RESPIRATORY: Clear to auscultation. GASTROINTESTINAL: Abdomen is soft. MUSCULOSKELETAL: No tenderness. No edema. DERMATOLOGIC: No skin rash. NEUROLOGIC: Alert and awake and oriented x3. No focal neurologic deficits. Moving all the extremiti es. PSYCHIATRIC: Mood and affect normal. LABORATORY DATA: Potassium is 3.9, BUN is 37, creatinine is 1.2. ASSESSMENT AND PLAN: 1. Acute kidney injury on chronic kidney disease, much better. 2. Edema, controlled. 3. Hypertension, . 4. Anemia. 5. Renal function is stable. I will sign off. Please call back with any questions.
[2018-05-28] MEDS ORDERED: Acetaminophen 325 MG TAB PO PRN (18:57)
--- NOTE | 2018-05-28 19:00 | PDOC.PN ---
- Subjective Encounter Start Date: 05/28/18 Encounter Start Time: 08:20 Pt seen for followup re: clostridium difficile diarrhea. Not answering questions consistently, unable to complete ROS. - Objective MAR Reviewed: Yes Vital Signs & Weight: Vital Signs (12 hours) Temp Pulse Resp BP Pulse Ox 05/28/18 16:10 97.8 F 71 20 138/99 H 97 05/28/18 12:12 97.9 F 71 20 154/72 H 96 05/28/18 09:47 98.2 F 64 17 152/66 H 96 Weight Admit Weight 143 lb Weight 149 lb 1.6 oz I&O: 05/27/18 05/28/18 05/29/18 06:59 06:59 06:59 Intake Total 4183 Output Total 100 Balance 4083 Result Diagrams: 05/28/18 08:24 05/28/18 08:24 EKG Reviewed by me: Yes (Tele: AV-paced rhythm) Phys Exam - Physical Examination appears malnourished HEENT: moist MMs, sclera anicteric, oral pharynx no lesions, 2+ tonsils Neck: no nodes, no JVD, supple, full ROM Respiratory: no wheezing, no rales, no rhonchi, clear to auscultation bilateral Cardiovascular: RRR, no rub S1, s2 Gastrointestinal: soft, non-tender, no distention, positive bowel sounds Neurological: moves all 4 limbs Psychiatric: normal affect Deviation from normal: Oriented to person, unable to assess orientation to place or time Deviation from normal: findings as documented by nursing staff Dx/Plan (1) Clostridium difficile diarrhea Code(s): A04.72 - ENTEROCOLITIS D/T CLOSTRIDIUM DIFFICILE, NOT SPCF RECUR Status: Acute Comment: continue vancomycin, add probiotics (2) SVT (supraventricular tachycardia) Code(s): I47.1 - SUPRAVENTRICULAR TACHYCARDIA Status: Acute Comment: appreciate cardiology service input (3) Moderate protein-calorie malnutrition Code(s): E44.0 - MODERATE PROTEIN-CALORIE MALNUTRITION Status: Chronic Comment: appreciate dietitian input (4) Dementia Code(s): F03.90 - UNSPECIFIED DEMENTIA WITHOUT BEHAVIORAL DISTURBANCE Status: Chronic Comment: resume home medications (5) LETI (acute kidney injury) Code(s): N17.9 - ACUTE KIDNEY FAILURE, UNSPECIFIED Status: Resolved - Plan * . No evidence of pneumonia, discontinue Zosyn Review of Systems - Medications/Allergies Allergies/Adverse Reactions: Allergies Allergy/AdvReac Type Severity Reaction Status Date / Time NSAIDS (Non-Steroidal Allergy Verified 05/27/18 04:51 Anti-Inflamma Medications: Current Medications Acetaminophen (Tylenol) 650 mg PO Q6HR PRN PRN Reason: Pain Ascorbic Acid (Vitamin C) 500 mg PO DAILY [facility] Cholecalciferol (Vitamin D3) 5,000 units PO DAILY [facility] Cyanocobalamin (Vitamin B-12) 1,000 mcg PO DAILY [facility] Donepezil HCl (Aricept) 10 mg PO HS [facility] Amiodarone HCl 450 mg/Miscellaneous Medication 1 each/ Dextrose/Water 259 mls @ 0 mls/hr IVPB INF [facility] Last Admin: 05/27/18 09:39 Dose: 259 mls Sodium Chloride (Normal Saline 0.9%) 1,000 mls @ 150 mls/hr IV .Q6H40M [facility] Last Admin: 05/28/18 09:48 Dose: 1,000 mls Meloxicam (Mobic) 15 mg PO DAILY [facility] Memantine (Namenda) 5 mg PO BID [facility] (Fluticasone Propionate [Flovent Diskus] 50 Mcg) 50 mcg IH DAILY PRN PRN Reason: Nasal Congestion Sodium Chloride (Flush - Normal Saline) 10 ml IVF Q12HR [facility] Last Admin: 05/28/18 10:00 Dose: Not Given Sodium Chloride (Flush - Normal Saline) 10 ml IVF PRN PRN PRN Reason: Saline Flush Vancomycin HCl (First Vancomycin) 125 mg PO TID [facility] Last Admin: 05/28/18 16:07 Dose: 125 mg
[2018-05-28] MEDS: Donepezil HCl 10 MG TAB PO SCH (21:50)
[2018-05-29] MEDS: Sodium Chloride 0.9% 1,000 ML IV SCH ×5 (03:23→18:54)
[2018-05-29] MEDS ORDERED: Fluticasone Propionate Nasal Spray 16 gm Bottle NASAL PRN (04:45)
[2018-05-29 06:02] LABS: Anion Gap 12 mmol/L (10-20); BUN (Urea Nitrogen) 27 mg/dL (8.4-25.7); Calc. Creatinine Clearance 47 mL/min (70-130); Calcium 9.7 mg/dL (7.8-10.44); Carbon Dioxide 22 mmol/L (23-31); Chloride 114 mmol/L (98-107); Estimated GFR-MDRD 69; Glucose 100 mg/dL (83-110); Sodium 144 mmol/L (136-145)
[2018-05-29 06:54] LABS: Band 7 % (5-11); Hemoglobin 9.3 g/dL (14.0-18.0); Hypochromia SLIGHT = 6-15 cells (100X) (0-5/hpf); Lymphocytes 7 % (21-51); MDiff Complete? YES; Mean Corpuscular HGB CONC 33.1 g/dL (32.0-36.0); Mean Platelet Volume 7.1 fL (7.4-10.4); Monocytes 4 % (0-10); Neutrophil 82 % (42-75); PLT Morphology Comment Appears Adequate; Platelet Count 174 thou/uL (130-400); RBC Distribution Width 13.2 % (11.5-14.5); Red Blood Cell (RBC) Count 2.64 mill/uL (4.70-6.10); White Blood Cell (WBC) Count 8.9 thou/uL (4.8-10.8)
[2018-05-29] MEDS: Vancomycin HCl 25 MG/ML Oral PO SCH ×3 (09:28→20:10)
[2018-05-29] MEDS: Meloxicam 15 MG TAB PO SCH (09:29)
[2018-05-29] MEDS: Cyanocobalamin (Vitamin B-12) 1,000 MCG TAB PO SCH (09:29)
[2018-05-29] MEDS: Ascorbic Acid 500 mg Chewable Tablet PO SCH (09:29)
[2018-05-29] MEDS: Saccharomyces boulardii 250 MG CAP PO SCH (09:29)
--- NOTE | 2018-05-29 16:47 | PDOC.PN ---
- Subjective Encounter Start Date: 05/29/18 Encounter Start Time: 08:40 Pt seen for followup re: clostridium difficile diarrhea. Denies chest pain, shortness of breath, fevers or chills. - Objective MAR Reviewed: Yes Vital Signs & Weight: Vital Signs (12 hours) Temp Pulse Resp BP Pulse Ox 05/29/18 12:09 97.2 F L 80 18 186/90 H 96 05/29/18 08:00 98.1 F 82 20 149/78 H 94 L 05/29/18 07:42 98.1 F 82 20 94 L Weight Admit Weight 143 lb Weight 149 lb 1.6 oz I&O: 05/28/18 05/29/18 05/30/18 06:59 06:59 06:59 Intake Total 4183 3120 Output Total 100 Balance 4083 3120 Result Diagrams: 05/29/18 05:38 05/29/18 05:38 Additional Labs: Labs reviewed by me Phys Exam - Physical Examination Constitutional: NAD HEENT: moist MMs, sclera anicteric, oral pharynx no lesions, 2+ tonsils Neck: no nodes, no JVD, supple, full ROM Respiratory: no wheezing, no rales, no rhonchi, clear to auscultation bilateral Cardiovascular: RRR, no rub S1, S2 Gastrointestinal: soft, non-tender, no distention, positive bowel sounds Neurological: moves all 4 limbs Psychiatric: normal affect Deviation from normal: Oriented to person, not to place or time Dx/Plan (1) Clostridium difficile diarrhea Code(s): A04.72 - ENTEROCOLITIS D/T CLOSTRIDIUM DIFFICILE, NOT SPCF RECUR Status: Acute Comment: continue vancomycin and probiotics (2) Dementia Code(s): F03.90 - UNSPECIFIED DEMENTIA WITHOUT BEHAVIORAL DISTURBANCE Status: Chronic Comment: pt more alert today, answering questions (3) Moderate protein-calorie malnutrition Code(s): E44.0 - MODERATE PROTEIN-CALORIE MALNUTRITION Status: Chronic Comment: appreciate dietitian input (4) LETI (acute kidney injury) Code(s): N17.9 - ACUTE KIDNEY FAILURE, UNSPECIFIED Status: Resolved (5) SVT (supraventricular tachycardia) Code(s): I47.1 - SUPRAVENTRICULAR TACHYCARDIA Status: Resolved - Plan continue antibiotics, PT/OT, out of bed/ambulate * . Review of Systems - Review of Systems Constitutional: negative: fever, chills, sweats, weakness, malaise Respiratory: negative: Cough, Shortness of Breath, SOB with Excertion, Pleuritic Pain, Wheezing Cardiovascular: negative: chest pain, palpitations, orthopnea, paroxysmal nocturnal dyspnea, edema, light headedness Gastrointestinal: Diarrhea. negative: Nausea, Vomiting, Abdominal Pain, Constipation, Melena, Hematochezia Genitourinary: negative: Dysuria, Frequency, Incontinence, Hematuria, Retention - Medications/Allergies Allergies/Adverse Reactions: Allergies Allergy/AdvReac Type Severity Reaction Status Date / Time NSAIDS (Non-Steroidal Allergy Verified 05/27/18 04:51 Anti-Inflamma Medications: Current Medications Acetaminophen (Tylenol) 650 mg PO Q6HR PRN PRN Reason: Pain Ascorbic Acid (Vitamin C) 500 mg PO DAILY [facility] Last Admin: 05/29/18 09:29 Dose: 500 mg Cholecalciferol (Vitamin D3) 5,000 units PO DAILY [facility] Last Admin: 05/29/18 09:29 Dose: 5,000 units Cyanocobalamin (Vitamin B-12) 1,000 mcg PO DAILY [facility] Last Admin: 05/29/18 09:29 Dose: 1,000 mcg Donepezil HCl (Aricept) 10 mg PO HS [facility] Last Admin: 05/28/18 21:50 Dose: 10 mg Fluticasone Propionate (Flonase Nasal [place]) 0 gm NASAL DAILYPRN PRN PRN Reason: NASAL CONGESTION Amiodarone HCl 450 mg/Miscellaneous Medication 1 each/ Dextrose/Water 259 mls @ 0 mls/hr IVPB INF [facility] Last Admin: 05/27/18 09:39 Dose: 259 mls Sodium Chloride (Normal Saline 0.9%) 1,000 mls @ 150 mls/hr IV .Q6H40M [facility] Last Admin: 05/29/18 10:17 Dose: Not Given Meloxicam (Mobic) 15 mg PO DAILY [facility] Last Admin: 05/29/18 09:29 Dose: 15 mg Memantine (Namenda) 5 mg PO BID [facility] Last Admin: 05/29/18 09:29 Dose: 5 mg Saccharomyces Boulardii (Florastor) 250 mg PO DAILY [facility] Last Admin: 05/29/18 09:29 Dose: 250 mg Sodium Chloride (Flush - Normal Saline) 10 ml IVF Q12HR [facility] Last Admin: 05/29/18 09:29 Dose: Not Given Sodium Chloride (Flush - Normal Saline) 10 ml IVF PRN PRN PRN Reason: Saline Flush Vancomycin HCl (First Vancomycin) 125 mg PO TID [facility] Last Admin: 05/29/18 15:21 Dose: 125 mg
[2018-05-29] MEDS: Donepezil HCl 10 MG TAB PO SCH (20:10)
[2018-05-30] MEDS: Vancomycin HCl 25 MG/ML Oral PO SCH ×3 (09:07→21:14)
[2018-05-30] MEDS: Cyanocobalamin (Vitamin B-12) 1,000 MCG TAB PO SCH (09:08)
[2018-05-30] MEDS: Saccharomyces boulardii 250 MG CAP PO SCH (09:08)
[2018-05-30] MEDS: Ascorbic Acid 500 mg Chewable Tablet PO SCH (09:08)
[2018-05-30] MEDS: Sodium Chloride 0.9% 1,000 ML IV SCH (12:58)
[2018-05-30] MEDS: Meloxicam 15 MG TAB PO SCH (12:59)
--- NOTE | 2018-05-30 15:22 | PDOC.PN ---
- Subjective Encounter Start Date: 05/30/18 Encounter Start Time: 15:21 Patient seen and examined by me this morning. Patient is mildly confused this AM but doesn't have any fever, N, Vomiting. Per patient's nurse patient ripped his IV line this morning. No acute overnight events. - Objective MAR Reviewed: Yes Vital Signs & Weight: Vital Signs (12 hours) Temp Pulse Resp BP Pulse Ox 05/30/18 11:34 98.2 F 74 16 156/82 H 95 05/30/18 08:00 97.1 F L 85 16 99 05/30/18 07:13 97.1 F L 85 16 158/85 H 99 05/30/18 04:00 97.9 F 73 16 158/64 H 99 Weight Admit Weight 143 lb Weight 151 lb I&O: 05/29/18 05/30/18 05/31/18 06:59 06:59 06:59 Intake Total 3120 Balance 3120 Result Diagrams: 05/29/18 05:38 05/29/18 05:38 Phys Exam - Physical Examination Constitutional: NAD cachectic and confused. HEENT: PERRLA, moist MMs, oral pharynx no lesions Neck: no JVD Respiratory: no wheezing, no rales, no rhonchi, clear to auscultation bilateral Cardiovascular: no significant murmur, no rub Gastrointestinal: soft, non-tender, no distention, positive bowel sounds Musculoskeletal: no edema, pulses present Neurological: non-focal, normal sensation, moves all 4 limbs Deviation from normal: A&O x 2 Skin: no rash, normal turgor, cap refill <2 seconds Dx/Plan (1) Clostridium difficile diarrhea Code(s): A04.72 - ENTEROCOLITIS D/T CLOSTRIDIUM DIFFICILE, NOT SPCF RECUR Status: Acute Comment: continue vancomycin and probiotics (2) Dementia Code(s): F03.90 - UNSPECIFIED DEMENTIA WITHOUT BEHAVIORAL DISTURBANCE Status: Chronic Comment: Patient waxes and wanes. Will monitor. (3) Moderate protein-calorie malnutrition Code(s): E44.0 - MODERATE PROTEIN-CALORIE MALNUTRITION Status: Chronic Comment: appreciate dietitian input (4) LETI (acute kidney injury) Code(s): N17.9 - ACUTE KIDNEY FAILURE, UNSPECIFIED Status: Resolved (5) SVT (supraventricular tachycardia) Code(s): I47.1 - SUPRAVENTRICULAR TACHYCARDIA Status: Resolved - Plan cont current plan of care * . Review of Systems - Review of Systems Constitutional: negative: fever, chills, sweats, weakness, malaise, other Eyes: negative: Pain, Vision Change, Conjunctivae Inflammation, Eyelid Inflammation, Redness, Other ENT: negative: Ear Pain, Ear Discharge, Nose Pain, Nose Discharge, Nose Congestion, Mouth Pain, Mouth Swelling, Throat Pain, Throat Swelling, Other Respiratory: negative: Cough, Dry, Shortness of Breath, Hemoptysis, SOB with Excertion, Pleuritic Pain, Sputum, Wheezing Cardiovascular: negative: chest pain, palpitations, orthopnea, paroxysmal nocturnal dyspnea, edema, light headedness, other Gastrointestinal: negative: Nausea, Vomiting, Abdominal Pain, Diarrhea, Constipation, Melena, Hematochezia, Other Genitourinary: negative: Dysuria, Frequency, Incontinence, Hematuria, Retention , Other Musculoskeletal: negative: Neck Pain, Shoulder Pain, Arm Pain, Back Pain, Hand Pain, Leg Pain, Foot Pain, Other Skin: negative: Rash, Lesions, Arthur, Bruising, Other Neurological: negative: Weakness, Numbness, Incoordination, Change in Speech, Confusion, Seizures, Other - Medications/Allergies Allergies/Adverse Reactions: Allergies Allergy/AdvReac Type Severity Reaction Status Date / Time NSAIDS (Non-Steroidal Allergy Verified 05/27/18 04:51 Anti-Inflamma Medications: Current Medications Acetaminophen (Tylenol) 650 mg PO Q6HR PRN PRN Reason: Pain Ascorbic Acid (Vitamin C) 500 mg PO DAILY [facility] Last Admin: 05/30/18 09:08 Dose: 500 mg Cholecalciferol (Vitamin D3) 5,000 units PO DAILY [facility] Last Admin: 05/30/18 09:08 Dose: 5,000 units Cyanocobalamin (Vitamin B-12) 1,000 mcg PO DAILY [facility] Last Admin: 05/30/18 09:08 Dose: 1,000 mcg Donepezil HCl (Aricept) 10 mg PO HS [facility] Last Admin: 05/29/18 20:10 Dose: 10 mg Fluticasone Propionate (Flonase Nasal [place]) 0 gm NASAL DAILYPRN PRN PRN Reason: NASAL CONGESTION Amiodarone HCl 450 mg/Miscellaneous Medication 1 each/ Dextrose/Water 259 mls @ 0 mls/hr IVPB INF [facility] Last Admin: 05/27/18 09:39 Dose: 259 mls Sodium Chloride (Normal Saline 0.9%) 1,000 mls @ 50 mls/hr IV .Q20H [facility] Last Admin: 05/30/18 12:58 Dose: 1,000 mls Meloxicam (Mobic) 15 mg PO DAILY [facility] Last Admin: 05/30/18 12:59 Dose: 15 mg Memantine (Namenda) 5 mg PO BID [facility] Last Admin: 05/30/18 09:08 Dose: 5 mg Saccharomyces Boulardii (Florastor) 250 mg PO DAILY [facility] Last Admin: 05/30/18 09:08 Dose: 250 mg Sodium Chloride (Flush - Normal Saline) 10 ml IVF Q12HR [facility] Last Admin: 05/30/18 09:18 Dose: 10 ml Sodium Chloride (Flush - Normal Saline) 10 ml IVF PRN PRN PRN Reason: Saline Flush Vancomycin HCl (First Vancomycin) 125 mg PO TID [facility] Last Admin: 05/30/18 14:42 Dose: 125 mg
[2018-05-30] MEDS: Donepezil HCl 10 MG TAB PO SCH (21:15)
[2018-05-31 06:04] LABS: #Lymphocytes 0.5 thou/uL (1.20-3.40); #Monocytes 0.5 thou/uL (0.11-0.59); #Neutrophils 4.8 thou/uL (1.40-6.50); %Basophils 0.1 % (0.0-1.0); %Eosinophils 0.8 % (0.0-10.0); %Lymphocytes 7.7 % (21.0-51.0); %Monocytes 8.9 % (0.0-10.0); %Neutrophils 82.5 % (42.0-75.0); Hemoglobin 9.2 g/dL (14.0-18.0); Mean Corpuscular HGB CONC 33.9 g/dL (32.0-36.0); Mean Corpuscular Hemoglobin 35.3 pg (27.0-31.0); Mean Platelet Volume 7.2 fL (7.4-10.4); Platelet Count 174 thou/uL (130-400); RBC Distribution Width 12.9 % (11.5-14.5); Red Blood Cell (RBC) Count 2.59 mill/uL (4.70-6.10); White Blood Cell (WBC) Count 5.8 thou/uL (4.8-10.8)
[2018-05-31 06:21] LABS: Anion Gap 13 mmol/L (10-20); BUN (Urea Nitrogen) 15 mg/dL (8.4-25.7); Calc. Creatinine Clearance 61 mL/min (70-130); Carbon Dioxide 23 mmol/L (23-31); Chloride 106 mmol/L (98-107); Estimated GFR-MDRD Greater than 90; Glucose 92 mg/dL (83-110); Potassium 3.4 mmol/L (3.5-5.1); Sodium 139 mmol/L (136-145)
[2018-05-31] MEDS: Meloxicam 15 MG TAB PO SCH (07:49)
[2018-05-31] MEDS: Saccharomyces boulardii 250 MG CAP PO SCH (07:49)
[2018-05-31] MEDS: Cyanocobalamin (Vitamin B-12) 1,000 MCG TAB PO SCH (07:50)
[2018-05-31] MEDS: Vancomycin HCl 25 MG/ML Oral PO SCH ×3 (07:55→20:42)
[2018-05-31] MEDS: Ascorbic Acid 500 mg Chewable Tablet PO SCH (07:56)
[2018-05-31] MEDS ORDERED: Potassium Chloride 20 MEQ TAB PO SCH (10:00)
[2018-05-31] MEDS: Sodium Chloride 0.9% 1,000 ML IV SCH (14:48)
--- NOTE | 2018-05-31 18:54 | PDOC.PN ---
- Subjective Encounter Start Date: 05/31/18 Encounter Start Time: 11:40 Patient seen at bedside. NAD. Tolerating diet. - Objective MAR Reviewed: Yes Vital Signs & Weight: Vital Signs (12 hours) Temp Pulse Resp BP Pulse Ox 05/31/18 08:00 98.1 F 85 16 98 05/31/18 07:00 98.1 F 85 16 117/66 98 Weight Admit Weight 143 lb Weight 151 lb I&O: 05/30/18 05/31/18 06/01/18 06:59 06:59 06:59 Intake Total 870 560 Output Total 300 Balance 870 260 Result Diagrams: 05/31/18 05:23 05/31/18 05:23 Phys Exam - Physical Examination Constitutional: NAD HEENT: PERRLA, moist MMs Neck: no JVD Respiratory: no wheezing, no rales, no rhonchi Cardiovascular: RRR, no significant murmur, no rub Gastrointestinal: soft, non-tender, no distention Musculoskeletal: no edema, pulses present Neurological: non-focal, normal sensation, moves all 4 limbs Psychiatric: normal affect Skin: no rash Dx/Plan (1) Clostridium difficile diarrhea Code(s): A04.72 - ENTEROCOLITIS D/T CLOSTRIDIUM DIFFICILE, NOT SPCF RECUR Status: Acute Comment: continue vancomycin and probiotics. Will discharge to a facility. Will reach out to employment case manager regarding patient's discharge planning. (2) Dementia Code(s): F03.90 - UNSPECIFIED DEMENTIA WITHOUT BEHAVIORAL DISTURBANCE Status: Chronic Comment: Patient waxes and wanes. Will monitor. (3) Moderate protein-calorie malnutrition Code(s): E44.0 - MODERATE PROTEIN-CALORIE MALNUTRITION Status: Chronic Comment: appreciate dietitian input (4) LETI (acute kidney injury) Code(s): N17.9 - ACUTE KIDNEY FAILURE, UNSPECIFIED Status: Resolved (5) SVT (supraventricular tachycardia) Code(s): I47.1 - SUPRAVENTRICULAR TACHYCARDIA Status: Resolved - Plan * .
[2018-05-31] MEDS: Donepezil HCl 10 MG TAB PO SCH (20:42)
[2018-06-01] MEDS: Meloxicam 15 MG TAB PO SCH (08:19)
[2018-06-01] MEDS: Saccharomyces boulardii 250 MG CAP PO SCH (08:19)
[2018-06-01] MEDS: Ascorbic Acid 500 mg Chewable Tablet PO SCH (08:20)
[2018-06-01] MEDS: Cyanocobalamin (Vitamin B-12) 1,000 MCG TAB PO SCH (08:20)
[2018-06-01] MEDS: Vancomycin HCl 25 MG/ML Oral PO SCH ×3 (08:20→20:13)
--- NOTE | 2018-06-01 09:48 | PQF ---
CLINICAL DOCUMENTATION IMPROVEMENT CLARIFICATION FORM: ICD-10 Updated PLEASE DO AN ADDENDUM TO THE PROGRESS NOTE WITH ANY DOCUMENTATION UPDATES OR ADDITIONS AND CARRY THROUGH TO DC SUMMARY. THANK YOU. DATE: 06/01 ATTN: DR. BERTHA PANDA Please exercise your independent, professional judgment in responding to the clarification form. Clinical indicators are provided on the bottom of this form for your review. Please check appropriate box(s): [ ] Encephalopathy: Type: [ ] Acute [ ] Subacute [ ] Chronic Etiology: [ ] Metabolic [ ] Toxic [ ] in the setting of underlying dementia [ ] Other (please specify) [ ] Other diagnosis [ ] Unable to determine For continuity of documentation, please document condition throughout progress notes and discharge summary. Thank You. CLINICAL INDICATORS - SIGNS / SYMPTOMS / LABS ER PHYSICIAN DOCUMENTATION 05/26: PT PRESENTS WITH AMS. PER NH W/DIARRHEA X3 DAYS & CHANGED IN MENTAL STATUS TODAY. PT NORMALLY A/O X1 & EMS REPORTS A/O X0 ON ARRIVAL. FINAL DIAGNOSIS: AMS, DIARRHEA, INDETERMINATE TROPONIN PN 05/28: NOT ANSWERING QUESTIONS CONSISTENTLY; A/O X1 - PERSON; PN 05/29: ORIENTED TO PERSON PN 05/30 - PT MILDLY CONFUSED THIS A.M. PER PT'S NURSE, PT RIPPED OUT HIS IV LINE THIS MORNING. CONSTITUTIONAL: CACHECTIC & CONFUSED; DX/PLAN: 2 ) DEMENTIA - PT WAXES & WANES, WILL MONITOR PN 05/31: DX/PLAN: 2) DEMENTIA - PT WAXES & WANES, WILL MONITOR RISK FACTORS: HX OF DEMENTIA C DIFF DIARRHEA LETI METABOLIC ACIDOSIS TREATMENTS: PO VANCOMYCIN (05/27 - PRESENT) IVF (NS 05/27 - ) THANK YOU! Jaycee (This form is maintained as a part of the permanent medical record) 2014 [employer]. All Rights Reserved Jaycee Rosas, RN, BSN [email or web address] Office: [phone] [facility]
[2018-06-01 10:32] LABS: Anion Gap 11 mmol/L (10-20); BUN (Urea Nitrogen) 13 mg/dL (8.4-25.7); Calc. Creatinine Clearance 63 mL/min (70-130); Calcium 8.8 mg/dL (7.8-10.44); Carbon Dioxide 24 mmol/L (23-31); Chloride 107 mmol/L (98-107); Estimated GFR-MDRD Greater than 90; Glucose 104 mg/dL (83-110); Magnesium 1.7 mg/dL (1.6-2.6); Potassium 3.8 mmol/L (3.5-5.1); Sodium 138 mmol/L (136-145)
--- NOTE | 2018-06-01 12:16 | PDOC.PN ---
- Subjective Encounter Start Date: 06/01/18 Encounter Start Time: 10:05 Patient seen and examined by me. Patient is lying in bed comfortably and its in no acute distress. Per nurse patient didn't eat as much this morning. - Objective MAR Reviewed: Yes Vital Signs & Weight: Vital Signs (12 hours) Temp Pulse Resp BP Pulse Ox 06/01/18 08:20 97.7 F 62 20 94 L 06/01/18 07:36 97.7 F 62 20 140/78 94 L Weight Admit Weight 143 lb Weight 151 lb I&O: 05/31/18 06/01/18 06/02/18 06:59 06:59 06:59 Intake Total 870 560 Output Total 300 Balance 870 260 Result Diagrams: 05/31/18 05:23 06/01/18 09:52 Phys Exam - Physical Examination Constitutional: NAD HEENT: PERRLA, moist MMs Neck: no nodes, no JVD, supple, full ROM Respiratory: no wheezing, no rales, no rhonchi, clear to auscultation bilateral Cardiovascular: RRR, no significant murmur Gastrointestinal: soft, non-tender, no distention Musculoskeletal: no edema, pulses present Neurological: non-focal, normal sensation, moves all 4 limbs Skin: no rash Dx/Plan (1) Clostridium difficile diarrhea Code(s): A04.72 - ENTEROCOLITIS D/T CLOSTRIDIUM DIFFICILE, NOT SPCF RECUR Status: Acute Comment: continue vancomycin and probiotics. Will discharge to a facility. Will reach out to shelter case manager regarding patient's discharge planning. (2) Dementia Code(s): F03.90 - UNSPECIFIED DEMENTIA WITHOUT BEHAVIORAL DISTURBANCE Status: Chronic Comment: currently at baseline. (3) Moderate protein-calorie malnutrition Code(s): E44.0 - MODERATE PROTEIN-CALORIE MALNUTRITION Status: Chronic Comment: appreciate dietitian input (4) LETI (acute kidney injury) Code(s): N17.9 - ACUTE KIDNEY FAILURE, UNSPECIFIED Status: Resolved (5) SVT (supraventricular tachycardia) Code(s): I47.1 - SUPRAVENTRICULAR TACHYCARDIA Status: Resolved (6) Encephalopathy acute Code(s): G93.40 - ENCEPHALOPATHY, UNSPECIFIED Status: Acute Comment: due to combination of dementia and C.diff infection (7) Diarrhea Code(s): R19.7 - DIARRHEA, UNSPECIFIED Status: Acute Comment: Due to C.diff. currently on po antibiotics - Plan * . Review of Systems - Review of Systems Constitutional: negative: fever, chills, sweats, weakness, malaise, other Eyes: negative: Pain, Vision Change, Conjunctivae Inflammation, Eyelid Inflammation, Redness, Other ENT: negative: Ear Pain, Ear Discharge, Nose Pain, Nose Discharge, Nose Congestion, Mouth Pain, Mouth Swelling, Throat Pain, Throat Swelling, Other Respiratory: negative: Cough, Dry, Shortness of Breath, Hemoptysis, SOB with Excertion, Pleuritic Pain, Sputum, Wheezing Cardiovascular: negative: chest pain, palpitations, orthopnea, paroxysmal nocturnal dyspnea, edema, light headedness, other Gastrointestinal: negative: Nausea, Vomiting, Abdominal Pain, Diarrhea, Constipation, Melena, Hematochezia, Other Genitourinary: negative: Dysuria, Frequency, Incontinence, Hematuria, Retention , Other Musculoskeletal: negative: Neck Pain, Shoulder Pain, Arm Pain, Back Pain, Hand Pain, Leg Pain, Foot Pain, Other Skin: negative: Rash, Lesions, Arthur, Bruising, Other Neurological: negative: Weakness, Numbness, Incoordination, Change in Speech, Confusion, Seizures, Other - Medications/Allergies Allergies/Adverse Reactions: Allergies Allergy/AdvReac Type Severity Reaction Status Date / Time NSAIDS (Non-Steroidal Allergy Verified 05/27/18 04:51 Anti-Inflamma Medications: Current Medications Acetaminophen (Tylenol) 650 mg PO Q6HR PRN PRN Reason: Pain Ascorbic Acid (Vitamin C) 500 mg PO DAILY [facility] Last Admin: 06/01/18 08:20 Dose: 500 mg Cholecalciferol (Vitamin D3) 5,000 units PO DAILY [facility] Last Admin: 06/01/18 08:19 Dose: 5,000 units Cyanocobalamin (Vitamin B-12) 1,000 mcg PO DAILY [facility] Last Admin: 06/01/18 08:20 Dose: 1,000 mcg Donepezil HCl (Aricept) 10 mg PO HS [facility] Last Admin: 05/31/18 20:42 Dose: 10 mg Fluticasone Propionate (Flonase Nasal [place]) 0 gm NASAL DAILYPRN PRN PRN Reason: NASAL CONGESTION Amiodarone HCl 450 mg/Miscellaneous Medication 1 each/ Dextrose/Water 259 mls @ 0 mls/hr IVPB INF [facility] Last Admin: 05/27/18 09:39 Dose: 259 mls Meloxicam (Mobic) 15 mg PO DAILY [facility] Last Admin: 06/01/18 08:19 Dose: 15 mg Memantine (Namenda) 5 mg PO BID [facility] Last Admin: 06/01/18 08:19 Dose: 5 mg Saccharomyces Boulardii (Florastor) 250 mg PO DAILY [facility] Last Admin: 06/01/18 08:19 Dose: 250 mg Sodium Chloride (Flush - Normal Saline) 10 ml IVF Q12HR [facility] Last Admin: 06/01/18 08:21 Dose: Not Given Sodium Chloride (Flush - Normal Saline) 10 ml IVF PRN PRN PRN Reason: Saline Flush Vancomycin HCl (First Vancomycin) 125 mg PO TID [facility] Last Admin: 06/01/18 08:20 Dose: 125 mg
[2018-06-01 15:10] VITALS: BMI 21.7
[2018-06-01] MEDS: Donepezil HCl 10 MG TAB PO SCH (20:13)
[2018-06-02 04:55] LABS: Anion Gap 11 mmol/L (10-20); BUN (Urea Nitrogen) 17 mg/dL (8.4-25.7); Calc. Creatinine Clearance 58 mL/min (70-130); Calcium 9.1 mg/dL (7.8-10.44); Carbon Dioxide 27 mmol/L (23-31); Chloride 106 mmol/L (98-107); Estimated GFR-MDRD 87; Glucose 100 mg/dL (83-110); Magnesium 1.6 mg/dL (1.6-2.6); Potassium 3.6 mmol/L (3.5-5.1); Sodium 140 mmol/L (136-145)
[2018-06-02 07:29] VITALS: BP 138/77; TEMP 98.5
[2018-06-02] MEDS: Cyanocobalamin (Vitamin B-12) 1,000 MCG TAB PO SCH (09:14)
[2018-06-02] MEDS: Ascorbic Acid 500 mg Chewable Tablet PO SCH (09:14)
[2018-06-02] MEDS: Saccharomyces boulardii 250 MG CAP PO SCH (09:14)
[2018-06-02] MEDS: Meloxicam 15 MG TAB PO SCH (09:14)
[2018-06-02] MEDS: Vancomycin HCl 25 MG/ML Oral PO SCH ×2 (09:15→15:30)
== END 2018-06-02 17:16 | DRG 371 ==
LOC: ERS 21:03 → 2NO 23:00 → T4-A 05-29 17:34
PROVIDERS: ADMIT Internal Medicine; ATTEND Internal Medicine
DX: A04.72 Enterocolitis due to Clostridium difficile, not specified as recurrent (principal); G93.40 Encephalopathy, unspecified; E44.0 Moderate protein-calorie malnutrition; N17.9 Acute kidney failure, unspecified; I47.1 Supraventricular tachycardia; E87.2 Acidosis; F03.90 Unspecified dementia, unspecified severity, without behavioral disturbance, psychotic disturbance, mood disturbance, and anxiety; Z68.21 Body mass index [BMI] 21.0-21.9, adult; D64.9 Anemia, unspecified; I12.9 Hypertensive chronic kidney disease with stage 1 through stage 4 chronic kidney disease, or unspecified chronic kidney disease; L89.102 Pressure ulcer of unspecified part of back, stage 2; L89.322 Pressure ulcer of left buttock, stage 2; L89.312 Pressure ulcer of right buttock, stage 2; N18.3 Chronic kidney disease, stage 3 (moderate); Z95.810 Presence of automatic (implantable) cardiac defibrillator
CPT/HCPCS: 36415; 70450; 71045; 71260; 74177; 80048; 80053; 81001; 82274; 82553; 83630; 83690; 83735; 84443; 84484; 85025; 86850; 86900; 86901; 87045; 87046; 87324; 87449; 87493; 87899; 93005; 93306; 94760; A4216; G8996-GN-CK; G8997-GN-CI; G8997-GN-CK; J0282; J2543; J3370; J7050; J7070

== ENCOUNTER 2018-06-14 15:14 | Inpatient (IN) | payer MEDICARE, BC ==
[2018-06-14 19:04] LABS: Hemoglobin 10.6 g/dL (14.0-18.0); Mean Corpuscular HGB CONC 34.5 g/dL (32.0-36.0); Mean Corpuscular Hemoglobin 35.9 pg (27.0-31.0); Mean Platelet Volume 7.1 fL (7.4-10.4); Platelet Count 218 thou/uL (130-400); RBC Distribution Width 14.4 % (11.5-14.5); Red Blood Cell (RBC) Count 2.95 mill/uL (4.70-6.10); White Blood Cell (WBC) Count 7.4 thou/uL (4.8-10.8)
[2018-06-14 19:18] LABS: Band 2 % (5-11); Eosinophils 1 % (0-10); Lymphocytes 11 % (21-51); MDiff Complete? YES; Macrocytosis SLIGHT = 6-15 cells (100X) (0-5/hpf); Monocytes 4 % (0-10); Neutrophil 80 % (42-75); Ovalocytes SLIGHT = 2-5 cells (100X) (0-1/hpf); PLT Morphology Comment Appears Adequate; Polychromasia SLIGHT = 2-3 cells (100X) (0-2/hpf); Reactive Lymphocytes 2 % (0-10)
[2018-06-14 19:25] LABS: ALT (SGPT) 20 U/L (8-55); AST (SGOT) 24 U/L (5-34); Albumin 3.6 g/dL (3.4-4.8); Alkaline Phosphatase 112 U/L (40-150); Anion Gap 11 mmol/L (10-20); BUN (Urea Nitrogen) 37 mg/dL (8.4-25.7); Calc. Creatinine Clearance 0 mL/min (70-130); Calcium 10.6 mg/dL (7.8-10.44); Carbon Dioxide 31 mmol/L (23-31); Chloride 100 mmol/L (98-107); Estimated GFR-MDRD 47; Globulin 3.5 g/dL (2.4-3.5); Glucose 110 mg/dL (83-110); Potassium 4.2 mmol/L (3.5-5.1); Protein, Total 7.1 g/dL (5.8-8.1); Sodium 138 mmol/L (136-145)
[2018-06-14 19:30] LABS: CKMB 6.2 ng/mL (0-6.6)
[2018-06-14 19:32] LABS: Troponin I 0.446 ng/mL (< 0.028)
--- NOTE | 2018-06-14 20:13 | RAD ---
PORTABLE AP CHEST X-RAY: 06/14/2018 HISTORY: Weakness. Blue, cold fingertips. COMPARISON: 05/26/2018 FINDINGS: A dual-lead left subclavian cardiac pacemaker device remains in place. The cardiac silhouette and pu lmonary vasculature are within normal limits. Multiple right-sided rib fractures are again seen. Th ere is an area of increased density in the right mid lung zone, but this overlies the region of a pos terior rib fracture and may represent mild interval healing of the fracture. Calcified granuloma is again seen at the left lung base. Minimal symmetrical biapical pleural thickening is seen. The lung s are otherwise clear. There is osteopenia. Vascular calcification is seen in the thoracic aorta. No other interval change. IMPRESSION: 1. Multiple right-sided rib fractures again visualized. 2. Osteopenia. 3. No acute cardiopulmonary process. POS: [facility]
[2018-06-14] MEDS ORDERED: Sodium Chloride 0.9% 1,000 ML IV SCH (22:42)
[2018-06-15 03:16] LABS: CKMB 6.3 ng/mL (0-6.6)
[2018-06-15 03:24] LABS: Critical Call Chem Troponin I RESULT DECREASING; Troponin I 0.407 ng/mL (< 0.028)
[2018-06-15] MEDS ORDERED: Acetaminophen 325 MG TAB PO PRN (10:26)
[2018-06-15] MEDS ORDERED: Polyethylene Glycol 3350 17 GM Packet PO PRN (10:27)
[2018-06-15] MEDS ORDERED: Milk Of Magnesia 30 ML UDCUP PO PRN (10:27)
[2018-06-15] MEDS: Sodium Chloride 0.45% 1,000 ML IV SCH (12:08)
--- NOTE | 2018-06-15 15:37 | CON ---
DATE OF CONSULTATION: 06/15/2018 REASON FOR CONSULTATION: Wide complex tachycardia. HISTORY OF PRESENT ILLNESS: Mr. Bailey is an 87-year-old gentleman who I saw and evaluated earlier i n the month. He was admitted for recurrent diarrhea. He was diagnosed with C. difficile. His daughter who is a nurse states he was doing well and is off isolation when she felt he was cyanot ic. This is mainly in his upper extremities. No chest pain or pressure noted. No other associated ameliorating or exacerbating factors present. While being monitored, he has had episodes of nonsustained VT. He is asymptomatic. PAST MEDICAL HISTORY: Unknown cardiac history per his daughter. She does not know whether he has un dergone coronary angiography in the past. He did have his defibrillator placed 5 years ago. No prev ious history of bypass surgery. He does have underlying dementia. HOME MEDICATIONS: Namenda, Florastor, MiraLax, Milk of Magnesia, Aricept, ascorbic acid. REVIEW OF SYSTEMS: Ten point review of systems difficult to obtain due to underlying dementia. PHYSICAL EXAMINATION: GENERAL: Patient is a pleasant male who is in no acute distress. The patient appears his stated age . He is not oriented to time, person and place. VITAL SIGNS: Blood pressure 159/70, pulse 60, temperature 97.3. NEUROLOGIC: The patient is alert and oriented times 3 with no focal neurologic deficits. HEENT: Sclerae without icterus. Mouth has moist mucous membranes with normal pallor. NECK: No JVD. Carotid upstroke brisk. No bruits bilaterally. LUNGS: Clear to auscultation with unlabored respirations. BACK: No scoliosis or kyphosis. CARDIAC: Regular rate and rhythm with normal S1 and S2. No S3 or S4 noted. No significant rubs, murmurs, thrills, or gallops noted throughout the precordium. PMI is not displaced. There is no parasternal heave. ABDOMEN: Soft, nontender, nondistended. No peritoneal signs present. No hepatosplenomegaly. No abnormal striae. EXTREMITIES: 2+ femoral and 2+ dorsalis pedis pulses. No cyanosis, clubbing, or edema. SKIN: No gross abnormalities. PERTINENT LABORATORY DATA: Hemoglobin 10.6, troponin 0.4, creatinine 1.42. IMPRESSION: Wide complex tachycardia. RECOMMENDATIONS: Mr. Bailey's most recent echo did suggest normal LVEF of 50%-55%. He does have mil d to moderate aortic stenosis. He was not placed on beta-leilani therapy on discharge. At this poin t, would recommend beta leilani therapy and consider amiodarone treatment. He does have a defibrilla tor in place. The daughter, who is the power of contract attorney is not interested anymore aggressive approa ch. Would therefore defer not have a stress study or angiography. I would certainly agree given his situation. We will interrogate his defibrillator.
[2018-06-15] MEDS: Mometasone Furoate 120 PUFF 220 MCG INH SCH (19:19)
[2018-06-15] MEDS: Mirtazapine 15 MG TAB PO SCH (20:41)
[2018-06-15] MEDS: Metoprolol Tartrate 25 MG TAB PO SCH (20:42)
--- NOTE | 2018-06-16 02:30 | HP ---
DATE OF ADMISSION: 06/14/2018 REASON FOR ADMISSION AND CHIEF COMPLAINT: Because of hypotension and not doing well. HISTORY OF PRESENT ILLNESS: Mr. Bailey is an 87-year-old male with past medical history of dementia, C. difficile colitis, who was recently admitted to the [facility], since admission h as not been eating well, losing weight as well. The patient was found to be hypotensive with blood p ressure of 90/50 and also fingertips were cyanotic and has also some trouble breathing as well. Also he has cough, nonproductive with pain in the lateral chest area so patient was sent to the hospital because of these complaints. According to the family, patient's condition declined since April when osiris bran was in the hospital for C. difficile colitis. The patient was sent to in the ER, patient was evaluated and found to be dehydrated with acute kidney injury, started on IV fluids. The patient wa s not hypotensive in the ER, not hypoxia as well, so patient is continuing IV fluids and admitted for further evaluation. The patient was also found to have elevated troponin I, also history of non-ST elevation myocardial infarction. PAST MEDICAL HISTORY: 1. Dementia. 2. History of supraventricular tachycardia. 3. History of Clostridium difficile colitis. 4. Protein-calorie malnutrition. PAST SURGICAL HISTORY: Status post defibrillator placement. CURRENT MEDICATIONS: The patient is on Tylenol p.r.n., vitamin C daily, vitamin D3 of 5000 units asael ly, vitamin B12 daily, Aricept 10 mg daily, Flovent nasal spray daily, milk of magnesia p.r.n., Namen da 5 mg b.i.d., MiraLax 17 grams daily, Florastor 250 mg daily. ALLERGIES: No known drug allergies. FAMILY HISTORY: Nothing of interest. SOCIAL HISTORY: The patient lives in [facility]. No history of smoking. No hist ory of alcohol abuse. REVIEW OF SYSTEMS: Unable to obtain, patient is awake, not able to communicate very well. PHYSICAL EXAMINATION: GENERAL: The patient is alert, awake, not oriented. VITAL SIGNS: Temperature 98, pulse 63, respirations 20, blood pressure 130/60. HEENT: Head is normocephalic, atraumatic. Pupils equal and reactive to light. Nasopharynx is pale and dry. Hard and soft palate, no lesions. SKIN: Skin turgor decreased. NECK: Supple. No JVD. LUNGS: Breath sounds diminished bilaterally. Percussion not dull bilaterally. No rales. No rhonch i. HEART: S1, S2 regular. ABDOMEN: Soft, no distention, no tenderness. Normal bowel sounds. RECTAL: Deferred. CENTRAL NERVOUS SYSTEM: The patient is alert, awake, not oriented. Motor system power 3-4/5 in all extremities. Deep tendon reflexes 2+ bilaterally. Plantar downgoing. Sensory intact. LABORATORY AND X-RAY FINDINGS: CBC shows WBC 7.4, hemoglobin 10.7, hematocrit 30.7, platelets 218. Metabolic panel: Sodium 138, potassium 4.0, chloride 100, CO2 of 31, BUN 37, creatinine 1.4, glucose 110. CK-MB 3.2, troponin I 0.046. Chest x-ray shows multiple right-sided rib fractures seen which are not new, osteopenia, but otherwise no acute cardiopulmonary process. EKG showed undetermin ed rhythm, no acute ST-T wave changes seen. ASSESSMENT: 1. Acute kidney injury. 2. Possible non-ST elevation myocardial infarction. 3. Elevated troponin I. 4. Severe dementia. 5. Chronic anemia. 6. Protein-calorie malnutrition, moderate. 7. Hard of hearing. PLAN: 1. Vital signs q.4 hours. 2. Activity: As tolerated. 3. Allergies: NKDA. 4. IV fluids 1/2 normal at 70 mL per hour. 5. Diet: Cardiac. 6. Continue [facility] medication. 7. Discontinue Aricept. 8. Cardiology consult.
[2018-06-16] MEDS: Sodium Chloride 0.45% 1,000 ML IV SCH ×2 (03:28→14:50)
[2018-06-16 05:50] LABS: Anion Gap 13 mmol/L (10-20); BUN (Urea Nitrogen) 21 mg/dL (8.4-25.7); Calc. Creatinine Clearance 47 mL/min (70-130); Calcium 9.5 mg/dL (7.8-10.44); Carbon Dioxide 26 mmol/L (23-31); Chloride 101 mmol/L (98-107); Estimated GFR-MDRD 80; Glucose 94 mg/dL (83-110); Potassium 3.7 mmol/L (3.5-5.1); Sodium 136 mmol/L (136-145)
[2018-06-16 06:04] LABS: #Eosinphils 0.1 thou/uL (0.0-0.7); #Lymphocytes 0.6 thou/uL (1.20-3.40); #Monocytes 0.5 thou/uL (0.11-0.59); #Neutrophils 4.7 thou/uL (1.40-6.50); %Basophils 0.1 % (0.0-1.0); %Eosinophils 1.4 % (0.0-10.0); %Lymphocytes 9.9 % (21.0-51.0); %Monocytes 8.8 % (0.0-10.0); %Neutrophils 79.9 % (42.0-75.0); Hemoglobin 9.7 g/dL (14.0-18.0); Mean Corpuscular HGB CONC 32.3 g/dL (32.0-36.0); Mean Corpuscular Hemoglobin 33.8 pg (27.0-31.0); Mean Platelet Volume 7.1 fL (7.4-10.4); Platelet Count 205 thou/uL (130-400); RBC Distribution Width 14.4 % (11.5-14.5); Red Blood Cell (RBC) Count 2.87 mill/uL (4.70-6.10); White Blood Cell (WBC) Count 5.9 thou/uL (4.8-10.8)
[2018-06-16] MEDS: Saccharomyces boulardii 250 MG CAP PO SCH (09:02)
[2018-06-16] MEDS: Ascorbic Acid 500 mg Chewable Tablet PO SCH (09:02)
[2018-06-16] MEDS: Metoprolol Tartrate 25 MG TAB PO SCH ×3 (09:02→20:23)
[2018-06-16] MEDS: Cyanocobalamin (Vitamin B-12) 1,000 MCG TAB PO SCH (09:02)
--- NOTE | 2018-06-16 14:30 | CON ---
DATE OF CONSULTATION: 06/16/2018 ELECTROPHYSIOLOGY CONSULTATION REPORT REFERRING PHYSICIAN: Dr. Janes Valente I am seeing Mr. Bailey at our [facility] telemetry for electrophysiology urban design consultant for the following problems: 1. Paroxysmal supraventricular tachycardia documented on telemetry and pacemaker interrogation. A. Tachycardia initiates with a slowly conducted PAC, 1:1 tachycardia with short VA time. B. History of AV jojo reentry tachycardia. 2. 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 3. History of preserved LV function at 50-55%, diastolic dysfunction, mild MR, mild to moderate aortic stenosis, mitral or tricuspid regurgitation on echo 05/2018. 4. History of severe dementia. 5. Borderline elevated troponin levels. 6. Renal insufficiency. ALLERGIES: None. MEDICATIONS AT HOME: Included Tylenol, vitamin C, vitamin D3, vitamin B12, Aricept, Flovent, Milk of Magnesia, Namenda, MiraLax, Florastor. SUBJECTIVE: Mr. Bailey is here due to poor p.o. intake, hypertension, lower blood pressures. He has had persistently deteriorating status ever since April when he was admitted to the hospital with Clostridium difficile colitis. Early this morning he was evaluated by Dr. Valente for episodes of wide complex rhythm deemed to be concern with SVT at that time. He was considered for amiodarone, but eventually he was discharged home on no rhythm medication. This admission he was placed on metoprolol low dose. Currently, he is not reporting any new symptoms. No fever, chills, or cough. No stroke-like symptoms, no neurological deficits. The rest of 12-point system otherwise unremarkable. OBJECTIVE: VITAL SIGNS: Blood pressure 165/84, heart rate 59, respiration 20, temperature 97.4 degrees Fahrenheit. GENERAL: He is alert and oriented man in no apparent distress. NECK: Supple. Jugular veins not distended. CHEST: Coarse without crackles. CARDIOVASCULAR: Heart sounds are regular to rate and rhythm. No murmur or gallop. ABDOMEN: Benign. Bowel sounds positive. EXTREMITIES: Lower extremities without edema, clubbing or cyanosis. Left precordial pacing insertion site is well healed. He has got pale and chronically ill in appearance overall. NEUROLOGIC: Patient is nonfocal. MUSCULOSKELETAL: No joint swelling or deformities. SKIN: Without rash. DATABASE: EKGs reviewed revealing sinus rhythm with left bundle branch block. Telemetry strips also reviewed revealing episodic wide complex tachycardia with a QRS complex is consistent with the baseline left bundle branch block. I reviewed the pacing interrogation as well, revealing a [employer] Versa DR dual chamber pacemaker with battery longevity 9.5 years. Original implant date was 03/19/2016. The lead parameters are adequate sensing 0.7-2.8 millivolts in the atrium and 1.2-2.22 millivolts in the right ventricle. The patient is about 56 % ventricular paced. Sustained ventricular arrhythmia episodes are seen up to 7 minutes and 38 seconds. The EGMs during the episodes are consistent with an issue of the arrhythmia with PEAC conducted slowly over 320 milliseconds to the ventricles. This is followed a ventricular sensing and closely followed by an atrial sensing as well. This would be most consistent with AV jojo reentry tachycardia, although cannot completely rule out atrial tachycardia, either. Termination though is typically seen longest 7 minutes and 30 seconds is noted. The ____ are undersensed during the arrhythmia episodes, possibly due to the falling into refractory. LABORATORY DATA: White blood cell count 5.9, hemoglobin 9.7, platelet count is 205. Sodium 136, potassium 3.7, BUN 21, creatinine 0.89. Troponin 0.446 and 0.407. ASSESSMENT AND PLAN: Mr. Bailey is an 87-year-old man with a history of dementia, advanced cachexia, poor p.o. intake and hypertension. He also has a dual chamber pacemaker in place, although the exact diagnosis is unclear. He does have conduction disease though, at baseline left bundle branch block and he has been frequently paced by the pacemaker over 50% of the time. 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 On the other hand, he also has tachyarrhythmia episodes. The arrhythmia episodes are similar morphology to his baseline suggestive of the etiology being a supraventricular tachycardia. As noted by the pacemaker interrogation, 1:1 tachycardia seen in the very short VA timing. The initiation also consistent with AVNRT vs atrial tachycardia. The treatment could consist of medical therapy versus ablation. Due the advanced comorbid and tender age, we will attempt medical management, up titrating a beta leilani as tolerated. If symptomatic SVT remains, ablation could be an option. Due to the circumstances he is slightly higher than usual risk, but I suspect that it would be a relatively simple ablation to be performed. Discussed issues with her daughter, who is a retired nurse and she agrees with the care. Thank you for allowing me to participate in the care of this patient. MARY
--- NOTE | 2018-06-16 17:58 | PDOC.CTH ---
Cardiology Progress Note - Subjective No complaints. Reviewed tele and pacer interrogation. Still with intermittent SVT with wide complex. - Objective Vital Signs Temp Pulse Resp BP Pulse Ox 06/16/18 16:32 97.4 F L 61 16 151/70 H 97 06/16/18 12:06 97.4 F L 59 L 20 165/84 H 97 06/16/18 09:06 98.5 F 73 18 173/78 H 91 L 06/16/18 08:45 97.4 F L 59 L 20 96 Admit Weight 130 lb 9.6 oz Weight 129 lb 6.4 oz 06/15/18 06/16/18 06/17/18 06:59 06:59 06:59 Intake Total 740 940 410 Output Total 200 Balance 740 940 210 - Physical Examination General/Neuro: alert & oriented x3 Lungs: CTA Heart: RRR Abdomen: NT/ND - Telemetry Telemetry Rhythm: SR; WCT - Labs Result Diagrams: 06/16/18 04:57 06/16/18 04:57 Troponin/CKMB CK-MB (CK-2) 6.3 ng/mL (0-6.6) 06/15/18 02:48 Troponin I 0.407 ng/mL (< 0.028) H* 06/15/18 02:48 - Assessment/Plan 1. SVT 2. s/p dual-chamber pacer 3. NICOLETTE SILVA has seen today and discussed potential ablation. Given complexity of medical issues, suggested bblockers only for now and possible RFA if he continues to break through. No changes on my part.
[2018-06-16] MEDS: Mometasone Furoate 120 PUFF 220 MCG INH SCH (19:23)
[2018-06-16] MEDS: Mirtazapine 15 MG TAB PO SCH (20:23)
[2018-06-17] MEDS: Metoprolol Tartrate 25 MG TAB PO SCH ×4 (01:53→20:59)
[2018-06-17 06:06] LABS: Anion Gap 14 mmol/L (10-20); BUN (Urea Nitrogen) 19 mg/dL (8.4-25.7); Calc. Creatinine Clearance 50 mL/min (70-130); Calcium 9.1 mg/dL (7.8-10.44); Carbon Dioxide 22 mmol/L (23-31); Chloride 100 mmol/L (98-107); Estimated GFR-MDRD 87; Glucose 95 mg/dL (83-110); Potassium 3.7 mmol/L (3.5-5.1); Sodium 132 mmol/L (136-145)
[2018-06-17] MEDS: Cyanocobalamin (Vitamin B-12) 1,000 MCG TAB PO SCH (08:08)
[2018-06-17] MEDS: Saccharomyces boulardii 250 MG CAP PO SCH (08:08)
[2018-06-17] MEDS: Ascorbic Acid 500 mg Chewable Tablet PO SCH (08:08)
[2018-06-17] MEDS: Sodium Chloride 0.45% 1,000 ML IV SCH (08:10)
--- NOTE | 2018-06-17 09:11 | PRG ---
DATE OF SERVICE: 06/17/2018 SUBJECTIVE: Mr. Bailey is still mostly sleeping, a poor historian. No new issues noted as per his n urse. OBJECTIVE DATA: VITAL SIGNS: Blood pressure 136/64, heart rate 67, respiration 16, temperature 98.7 degrees Fahrenhe it. GENERAL: He is alert and oriented man in no apparent distress. NECK: Supple. Jugular veins not distended. CHEST: Coarse, no crackles. Left precordial pacemaker site is well healed. ABDOMEN: Benign. Bowel sounds positive. EXTREMITIES: Lower extremity without edema, clubbing or cyanosis. LABORATORY DATA: Lab data from today; sodium 132, potassium 3.7, BUN 19, creatinine 0.83. Telemetry strips reveal continued nonsustained episode of wide complex arrhythmia. ASSESSMENT AND PLAN: Mr. Bailey is a pleasant 87-year-old man with history of sinus node disease, le ft bundle branch block, dementia preserved LV systolic function on recent echo. He has frequent epis odes short, but sometimes lasting up to 7 minutes episodes of a wide complex arrhythmia. The QRS equ ivalent to his baseline left bundle and the initiation consistent with AV jojo reentrant tachycardia . I discussed with his daughter who is a nurse about treatment options. For now, we prefer conserva tive measures over ablation and a beta-leilani being titrated off. So far, he is tolerating medicati ons well. If tolerated further increases would be made tomorrow.
[2018-06-17] MEDS: Sodium Chloride 0.9% 1,000 ML IV SCH ×2 (10:37→21:15)
--- NOTE | 2018-06-17 12:50 | EKG ---
Test Reason : Blood Pressure : / mmHG Vent. Rate : 070 BPM Atrial Rate : 069 BPM P-R Int : 152 ms QRS Dur : 148 ms QT Int : 460 ms P-R-T Axes : 074 025 183 degrees QTc Int : 496 ms Ventricular paced Left bundle branch block Abnormal ECG No changes from 26-APR-2018 Confirmed by KAI MENON D.O. ([id number]), editor in chief newspaper SHANE CANTU ([id number]) on 06/17/2018 12:50:12 PM Referred By: Confirmed By:KAI MENON D.O.
[2018-06-17] MEDS: Mometasone Furoate 120 PUFF 220 MCG INH SCH (19:35)
[2018-06-18] MEDS: Metoprolol Tartrate 25 MG TAB PO SCH ×5 (03:51→21:37)
[2018-06-18 06:49] LABS: #Eosinphils 0.1 thou/uL (0.0-0.7); #Lymphocytes 0.7 thou/uL (1.20-3.40); #Monocytes 0.5 thou/uL (0.11-0.59); #Neutrophils 5.5 thou/uL (1.40-6.50); %Basophils 0.4 % (0.0-1.0); %Lymphocytes 10.6 % (21.0-51.0); %Monocytes 7.5 % (0.0-10.0); %Neutrophils 79.5 % (42.0-75.0); Hemoglobin 10.2 g/dL (14.0-18.0); Mean Corpuscular HGB CONC 33.4 g/dL (32.0-36.0); Mean Corpuscular Hemoglobin 34.6 pg (27.0-31.0); Mean Platelet Volume 7.4 fL (7.4-10.4); Platelet Count 188 thou/uL (130-400); RBC Distribution Width 14.5 % (11.5-14.5); Red Blood Cell (RBC) Count 2.94 mill/uL (4.70-6.10); White Blood Cell (WBC) Count 6.9 thou/uL (4.8-10.8)
[2018-06-18 07:04] LABS: ALT (SGPT) 14 U/L (8-55); AST (SGOT) 18 U/L (5-34); Albumin 3.2 g/dL (3.4-4.8); Alkaline Phosphatase 96 U/L (40-150); Anion Gap 11 mmol/L (10-20); BUN (Urea Nitrogen) 14 mg/dL (8.4-25.7); Calc. Creatinine Clearance 51 mL/min (70-130); Calcium 9.8 mg/dL (7.8-10.44); Carbon Dioxide 28 mmol/L (23-31); Chloride 102 mmol/L (98-107); Estimated GFR-MDRD 87; Globulin 3.2 g/dL (2.4-3.5); Glucose 110 mg/dL (83-110); Potassium 3.5 mmol/L (3.5-5.1); Protein, Total 6.4 g/dL (5.8-8.1); Sodium 137 mmol/L (136-145)
[2018-06-18 07:07] LABS: Troponin I 0.278 ng/mL (< 0.028)
[2018-06-18] MEDS: Cyanocobalamin (Vitamin B-12) 1,000 MCG TAB PO SCH (08:56)
[2018-06-18] MEDS: Ascorbic Acid 500 mg Chewable Tablet PO SCH ×2 (08:56→09:10)
[2018-06-18] MEDS: Saccharomyces boulardii 250 MG CAP PO SCH (08:56)
[2018-06-18] MEDS ORDERED: Potassium Chloride 20 MEQ TAB PO SCH (09:45)
[2018-06-18] MEDS: Sodium Chloride 0.9% 1,000 ML IV SCH (09:47)
--- NOTE | 2018-06-18 13:07 | PDOC.CTH ---
Cardiology Progress Note - Subjective Overall doesnt feel well. No specific complaints. - Objective Vital Signs Temp Pulse Resp BP Pulse Ox 06/18/18 11:45 97.8 F 65 13 141/75 H 93 L 06/18/18 08:00 97.7 F 68 15 136/90 94 L 06/18/18 04:00 97.5 F L 60 20 133/63 96 Admit Weight 130 lb 9.6 oz Weight 138 lb 1.6 oz 06/17/18 06/18/18 06/19/18 06:59 06:59 06:59 Intake Total 1367 1000 Output Total 450 575 Balance 917 425 - Physical Examination General/Neuro: NAD Neck: carotid US brisk, no JVD present Lungs: CTA, unlabored respirations Heart: PMI normal, RRR Abdomen: NT/ND, soft Extremities: + femoral B - Labs Result Diagrams: 06/18/18 06:32 06/18/18 06:32 Troponin/CKMB CK-MB (CK-2) 6.3 ng/mL (0-6.6) 06/15/18 02:48 Troponin I 0.278 ng/mL (< 0.028) H 06/18/18 06:32 - Assessment/Plan WCT Mild to moderate Deconditioning Rhythm management per EP CV status otherwise stable EF normal on recent echo FU with [facility] in 2-3 weeks
--- NOTE | 2018-06-18 15:14 | PRG ---
DATE OF SERVICE: 06/18/2018 ELECTROPHYSIOLOGY FOLLOWUP NOTE SUBJECTIVE: Mr. Bailey seems to be unchanged. No new complaints to voice. OBJECTIVE DATA: VITAL SIGNS: Blood pressure is 136/90, heart rate is 68, respirations 15, temperature 97.8 degrees F ahrenheit. GENERAL: Alert and oriented man in no apparent distress. NECK: Supple. Jugular veins not distended. CHEST: Coarse without crackles. CARDIOVASCULAR: Heart sounds are regular to rate and rhythm. No murmur or gallop. ABDOMEN: Benign. Bowel sounds positive. EXTREMITIES: Lower extremities without edema, clubbing, or cyanosis. Left precordial pacemaker insertion site is well healed. DATABASE: Telemetry strips revealed reduced episodes of supraventricular arrhythmias. ASSESSMENT AND PLAN: Mr. Bailey is a pleasant 87-year-old man with a history of arrhythmias with a l eft bundle aberration, not ventricular tachycardia. He also has a dual chamber pacemaker in place. 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 He is on incremental dose of his metoprolol. We will attempt to further increase it now that his blood pressure is still stable on the current regimen. Metoprolol increased to 25 mg q.6 hours, which could be eventually consolidating a single dose if renea irable. He seems to have some progress on rhythm control with the current regimen.
[2018-06-18] MEDS: Mometasone Furoate 120 PUFF 220 MCG INH SCH (18:57)
[2018-06-19] MEDS: Metoprolol Tartrate 25 MG TAB PO SCH ×4 (02:50→20:43)
[2018-06-19] MEDS: Cyanocobalamin (Vitamin B-12) 1,000 MCG TAB PO SCH (09:23)
[2018-06-19] MEDS: Ascorbic Acid 500 mg Chewable Tablet PO SCH (09:23)
[2018-06-19] MEDS: Saccharomyces boulardii 250 MG CAP PO SCH (09:23)
--- NOTE | 2018-06-19 11:57 | PRG ---
DATE OF SERVICE: 06/19/2018 REFERRING PHYSICIAN: Dr. Janes Valente SUBJECTIVE: Mr. Bailey seems to be more alert than usual. No new symptoms are noted. OBJECTIVE: VITAL SIGNS: Blood pressure is 120/60, heart rate 60, respiration is 13. Patient is afebrile. GENERAL: Alert and oriented man in no apparent distress. NECK: Left precordial pacing is well-healed. CHEST: Coarse without crackles. CARDIOVASCULAR: Heart sounds are regular to rate and rhythm. No murmur or gallop. ABDOMEN: Benign. Bowel sounds positive. EXTREMITIES: Lower extremity without edema, clubbing or cyanosis. DATABASE: The telemetry strips reviewed revealing a long period of sinus rhythm, ventricular pacing. No recurrent wide complex arrhythmias/SVT is noted overnight, short episodes are noted this morning . ASSESSMENT AND PLAN: Mr. Bailey is a pleasant 87-year-old man with history of sinus node disease and possible supraventricular tachycardia, most likely even oriented tachycardia. The episodes are some what sustained over 7 minutes at times on admission, but since beta blockers initiated the frequency has been reduced. Duration is also shorter. He has now been very symptomatic. As I discussed with the daughter who is a nurse, at this point, we will attempt medical management due to his overall shaw ility and dementia. At this point, I will sign out. I would advise to continue metoprolol, possibly could consider combi jose him a single dose, hence he is tolerating 25 mg 4 times a day dose well, possibly changing to me toprolol succinate 100 mg a day. I will be happy to see this gentleman back if felt necessary as an outpatient. Thank you for allowing me to participate in the care of your patient.
[2018-06-19] MEDS: Sodium Chloride 0.9% 1,000 ML IV SCH (16:01)
[2018-06-19] MEDS: Mometasone Furoate 120 PUFF 220 MCG INH SCH (19:16)
[2018-06-20] MEDS: Metoprolol Tartrate 25 MG TAB PO SCH ×4 (02:51→21:06)
[2018-06-20] MEDS: Loratadine 10 MG TAB PO SCH (08:38)
[2018-06-20] MEDS: Cyanocobalamin (Vitamin B-12) 1,000 MCG TAB PO SCH (08:38)
[2018-06-20] MEDS: Ascorbic Acid 500 mg Chewable Tablet PO SCH (08:38)
[2018-06-20] MEDS: Saccharomyces boulardii 250 MG CAP PO SCH (08:38)
[2018-06-20 14:45] LABS: Anion Gap 8 mmol/L (10-20); BUN (Urea Nitrogen) 17 mg/dL (8.4-25.7); Calc. Creatinine Clearance 51 mL/min (70-130); Calcium 9.4 mg/dL (7.8-10.44); Carbon Dioxide 29 mmol/L (23-31); Chloride 103 mmol/L (98-107); Estimated GFR-MDRD 85; Glucose 118 mg/dL (83-110); Potassium 3.7 mmol/L (3.5-5.1); Sodium 136 mmol/L (136-145)
[2018-06-20 14:53] LABS: #Eosinphils 0.1 thou/uL (0.0-0.7); #Lymphocytes 0.9 thou/uL (1.20-3.40); #Monocytes 0.7 thou/uL (0.11-0.59); #Neutrophils 8.9 thou/uL (1.40-6.50); %Basophils 0.1 % (0.0-1.0); %Eosinophils 0.8 % (0.0-10.0); %Lymphocytes 8.8 % (21.0-51.0); %Monocytes 6.7 % (0.0-10.0); %Neutrophils 83.6 % (42.0-75.0); Hemoglobin 8.8 g/dL (14.0-18.0); MDiff Complete? YES; Macrocytosis SLIGHT = 6-15 cells (100X) (0-5/hpf); Mean Corpuscular HGB CONC 34.3 g/dL (32.0-36.0); Mean Corpuscular Hemoglobin 36.3 pg (27.0-31.0); Mean Platelet Volume 7.9 fL (7.4-10.4); PLT Morphology Comment Appears Adequate; Platelet Count 148 thou/uL (130-400); RBC Distribution Width 14.3 % (11.5-14.5); Red Blood Cell (RBC) Count 2.41 mill/uL (4.70-6.10); White Blood Cell (WBC) Count 10.6 thou/uL (4.8-10.8)
[2018-06-20] MEDS: Mometasone Furoate 120 PUFF 220 MCG INH SCH (19:03)
[2018-06-21] MEDS: Metoprolol Tartrate 25 MG TAB PO SCH ×3 (03:02→16:10)
[2018-06-21] MEDS: Loratadine 10 MG TAB PO SCH (09:08)
[2018-06-21] MEDS: Ascorbic Acid 500 mg Chewable Tablet PO SCH (09:08)
[2018-06-21] MEDS: Saccharomyces boulardii 250 MG CAP PO SCH (09:08)
[2018-06-21] MEDS: Cyanocobalamin (Vitamin B-12) 1,000 MCG TAB PO SCH (09:08)
[2018-06-21] MEDS: Mometasone Furoate 120 PUFF 220 MCG INH SCH (19:20)
[2018-06-21] MEDS ORDERED: Mometasone 200 MCG HFA INHALER INH SCH (19:45)
[2018-06-22] MEDS: Loratadine 10 MG TAB PO SCH (08:33)
[2018-06-22] MEDS: Saccharomyces boulardii 250 MG CAP PO SCH (08:34)
[2018-06-22] MEDS: Cyanocobalamin (Vitamin B-12) 1,000 MCG TAB PO SCH (08:34)
[2018-06-22] MEDS: Ascorbic Acid 500 mg Chewable Tablet PO SCH (08:35)
[2018-06-22 11:32] VITALS: BP 112/62; TEMP 97.6
[2018-06-22 13:45] VITALS: BMI 18.1
--- NOTE | 2018-06-22 16:29 | DIS ---
DATE OF ADMISSION: 06/14/2018 DATE OF DISCHARGE: 06/22/2018 ADMITTING DIAGNOSES: 1. Acute kidney injury. 2. Possible non-ST elevation myocardial infarction. 3. Elevated troponin I. 4. Severe dementia. 5. Chronic anemia. 6. Protein calorie malnutrition, moderate. 7. Hard of hearing. FINAL DIAGNOSES: 1. Acute kidney injury, improved. 2. Ventricular tachycardia, nonsustained. 3. Protein-calorie malnutrition, moderate. 4. Severe dementia. 5. Chronic anemia. 6. Hard of hearing. BRIEF SUMMARY OF HOSPITAL COURSE: Mr. Bailey is an 87-year-old male admitted because the p atient was not eating well, losing weight and the patient complaining of coughing, non-productive and pain. The patient was found to have acute kidney injury with severe dehydration. His BUN was 37, c reatinine was 1.4. He was started on IV fluids and his Aricept was discontinued in view of his anore christiane. A cardiology consult was done in view of his elevated troponin I. The patient was seen by Dr. Valente. The patient did develop wide complex tachycardia after admission. The patient was starte d on beta leilani by the slice plug cutter operator. The patient has a defibrillator in place and a daughter who i s the power of assistant prosecuting attorney is not interested in aggressive approach. Defibrillator was also interrogate d. A consultation was also done with clinical exercise specialist. The patient was seen by Dr. Lynn. He felt that the patient possibly has proven tachycardia. The patient was continued on metoprolol to continue [facility] medical management. Metoprolol dose was gradually increased because the patient continued to have runs of ventricular tachycardia, nonsustained. Finally, his tachycardia improved with metoprolol. The patient became more alert, awake, but he was not eating well. His condition was discussed with t he daughter who does not want PEG tube feeding. The patient was initially started on Remeron, but it made him sleepy, so it was stopped. The patient will drink shakes sometimes, eat some breakfast, bu t he does not eat consistently. So daughter is aware, but still declined PEG tube feeding. The card iologist and clinical exercise specialist have cleared the patient to go back to detention since his tachyarrhyth moises is stabilized on metoprolol. His metoprolol initially was started on 25 four times a day changed to metoprolol succinate 100 mg once a day. The patient is being discharged back to detention. A t the time of discharge, he was stable. His vital signs were stable. Lungs were clear to auscultati on. Abdomen, soft, nontender. Bowel sounds were active. DISCHARGE MEDICATIONS: Include Namenda 5 mg b.i.d., Aricept was discontinued, Flovent Diskus 2 puffs b.i.d., vitamin B12 daily, vitamin D 5000 units daily, vitamin C daily, Tylenol p.r.n., Florastor 25 0 mg daily, MiraLax 17 grams daily, Milk of Magnesia p.r.n., Claritin 10 mg daily, Metoprolol succina te XL 100 mg daily, mometasone 200 mcg 1 puff daily. FOLLOWUP: The patient will be followed up at detention.
[2018-06-22] MEDS ORDERED: Mometasone 200 MCG HFA INHALER INH SCH (18:30)
--- NOTE | 2018-06-24 12:51 | PQF ---
Please exercise your independent, professional judgment in responding to the clarification form. Clinical indicators are provided on the bottom of this form for your review Please check appropriate box(s): AMI TYPE: [ ] Nstemi ruled out [ ] NSTEMI [ y] elevated troponin [ ] Other diagnosis [ ] Undetermined In addition, please specify: Present on Admission (POA): [ y] Yes [ ] No [ ] Unable to determine CLINICAL INDICATORS - SIGNS / SYMPTOMS / LABS Elevated biomarkers (CK-MB, Troponin T or I) VT Possible Nstemi- in H&P Nstemi- in ED possible nstemi- under admitting diagnosis in D/S but not under final Diagnosis RISKS: History of [place] MTDD
== END 2018-06-22 14:50 | DRG 683 ==
LOC: ERS 15:14 → 2NO 21:56
PROVIDERS: ADMIT Internal Medicine; ATTEND Internal Medicine
DX: N17.9 Acute kidney failure, unspecified (principal); E44.0 Moderate protein-calorie malnutrition; Z68.1 Body mass index [BMI] 19.9 or less, adult; I47.2 Ventricular tachycardia; F03.90 Unspecified dementia, unspecified severity, without behavioral disturbance, psychotic disturbance, mood disturbance, and anxiety; E86.0 Dehydration; D64.9 Anemia, unspecified; H91.90 Unspecified hearing loss, unspecified ear; I35.0 Nonrheumatic aortic (valve) stenosis; R79.89 Other specified abnormal findings of blood chemistry; I25.2 Old myocardial infarction; Z95.810 Presence of automatic (implantable) cardiac defibrillator
CPT/HCPCS: 36415; 36416; 71045; 80048; 80053; 82553; 84484; 85025; 93005; 96360; 96361; A4216; G8996-GN-CK; G8997-GN-CJ

== ENCOUNTER 2018-06-23 09:15 | Inpatient (IN) | payer MEDICARE, BC ==
[2018-06-23] MEDS ORDERED: Cefepime 2 GM VIAL ONE (10:08)
[2018-06-23 10:13] LABS: #Eosinphils 0.1 thou/uL (0.0-0.7); #Lymphocytes 0.7 thou/uL (1.20-3.40); #Monocytes 0.5 thou/uL (0.11-0.59); #Neutrophils 5.2 thou/uL (1.40-6.50); %Basophils 0.1 % (0.0-1.0); %Eosinophils 1.3 % (0.0-10.0); %Lymphocytes 10.8 % (21.0-51.0); %Monocytes 7.6 % (0.0-10.0); %Neutrophils 80.2 % (42.0-75.0); Hemoglobin 9.5 g/dL (14.0-18.0); Mean Corpuscular HGB CONC 32.7 g/dL (32.0-36.0); Mean Corpuscular Hemoglobin 34.8 pg (27.0-31.0); Mean Platelet Volume 7.9 fL (7.4-10.4); Platelet Count 204 thou/uL (130-400); RBC Distribution Width 14.5 % (11.5-14.5); Red Blood Cell (RBC) Count 2.72 mill/uL (4.70-6.10); White Blood Cell (WBC) Count 6.5 thou/uL (4.8-10.8)
[2018-06-23] MEDS ORDERED: Vancomycin HCl 1 GM in Premix Bag 1 BAG IVPB SCH ×2 (10:15→22:00)
[2018-06-23 10:25] LABS: ALT (SGPT) 23 U/L (8-55); AST (SGOT) 21 U/L (5-34); Albumin 2.9 g/dL (3.4-4.8); Alkaline Phosphatase 94 U/L (40-150); Anion Gap 15 mmol/L (10-20); BUN (Urea Nitrogen) 25 mg/dL (8.4-25.7); Bilirubin, Total 0.9 mg/dL (0.2-1.2); Calc. Creatinine Clearance 41 mL/min (70-130); Calcium 9.7 mg/dL (7.8-10.44); Carbon Dioxide 24 mmol/L (23-31); Chloride 104 mmol/L (98-107); Estimated GFR-MDRD 68; Globulin 3.3 g/dL (2.4-3.5); Glucose 133 mg/dL (83-110); Potassium 3.9 mmol/L (3.5-5.1); Protein, Total 6.2 g/dL (5.8-8.1); Sodium 139 mmol/L (136-145)
--- NOTE | 2018-06-23 10:37 | RAD ---
AP VIEW CHEST: INDICATIONS: History of dyspnea. COMPARISON: 06/14/2018 FINDINGS: Chronic lung changes are stable. There are multiple ununited right-sided rib fractures. No pneumoth orax is evidence. Mild cardiomegaly is stable. A dual-lead pacemaker is unchanged. IMPRESSION: 1. No acute cardiopulmonary abnormality. 2. Stable ununited right-sided rib fractures. 3. Stable mild cardiomegaly. 4. Stable chronic lung changes. POS: [facility]
[2018-06-23 11:23] LABS: Bilirubin Negative (Negative); Blood, Urine Moderate (Negative); Clarity TURBID (Clear); Glucose, Urine (Dipstick) Negative (Negative); Leukocyte Large (Negative); Nitrite Negative (Negative); Protein, Urine (Dipstick) 30 mg/dL (Neg-Trace); Specific Gravity, Urine 1.014 (1.002-1.036); Urobilinogen 0.2 mg/dL (0.2-1.0); pH, Urine 6.5 (5.0-9.0)
[2018-06-23 11:28] LABS: Squamous Epithelial 0-3 HPF (0-3)
[2018-06-23 11:32] LABS: Pathc Cast-AUWi Flag 5.68 (0-2.49)
[2018-06-23 11:40] LABS: Bacteria/HPF 2+ HPF (None Seen); Hyaline Casts/LPF NONE SEEN LPF (0-3 Hyaline); Manual Microscopic Reviewed? No Path Casts Seen; Transitional Epithelial 0-3 HPF (0-3)
[2018-06-23 12:49] LABS: Troponin I 0.225 ng/mL (< 0.028)
[2018-06-23] MEDS ORDERED: Ondansetron HCl/PF 4 MG/2 ML Vial IVP PRN (14:20)
[2018-06-23] MEDS ORDERED: Ondansetron ODT 4 MG TAB PO PRN (14:20)
[2018-06-23] MEDS ORDERED: Acetaminophen 325 MG TAB PO PRN ×2 (14:21→19:03)
[2018-06-23] MEDS ORDERED: Sodium Chloride 0.9% 1,000 ML IV SCH (14:30)
[2018-06-23 15:06] LABS: Lactic Acid 1.4 mmol/L (0.5-2.2)
[2018-06-23 15:16] LABS: Troponin I 0.216 ng/mL (< 0.028)
[2018-06-23] MEDS ORDERED: Cefepime 1 GM in Sodium Chloride 0.9% 100 ML IVPB SCH (16:00)
[2018-06-23] MEDS: Dextrose 5 %-0.45 % NaCl 1,000 ML IV SCH (18:23)
[2018-06-23 18:27] LABS: Troponin I 0.212 ng/mL (< 0.028)
[2018-06-23] MEDS ORDERED: Mometasone Furoate 120 PUFF 220 MCG INH PRN (19:04)
[2018-06-23] MEDS ORDERED: Milk Of Magnesia 30 ML UDCUP PO PRN (19:05)
[2018-06-23] MEDS ORDERED: Polyethylene Glycol 3350 17 GM Packet PO PRN (19:06)
[2018-06-24 06:20] LABS: #Basophils 0.1 thou/uL (0.0-0.2); #Eosinphils 0.1 thou/uL (0.0-0.7); #Lymphocytes 0.2 thou/uL (1.20-3.40); #Monocytes 0.2 thou/uL (0.11-0.59); #Neutrophils 4.4 thou/uL (1.40-6.50); %Basophils 1.1 % (0.0-1.0); %Eosinophils 1.1 % (0.0-10.0); %Lymphocytes 4.1 % (21.0-51.0); %Monocytes 3.8 % (0.0-10.0); Hemoglobin 7.7 g/dL (14.0-18.0); Mean Corpuscular HGB CONC 33.2 g/dL (32.0-36.0); Mean Corpuscular Hemoglobin 35.2 pg (27.0-31.0); Mean Platelet Volume 7.6 fL (7.4-10.4); Platelet Count 138 thou/uL (130-400); RBC Distribution Width 14.3 % (11.5-14.5); Red Blood Cell (RBC) Count 2.19 mill/uL (4.70-6.10); White Blood Cell (WBC) Count 4.9 thou/uL (4.8-10.8)
[2018-06-24 06:34] LABS: Anion Gap 11 mmol/L (10-20); BUN (Urea Nitrogen) 25 mg/dL (8.4-25.7); Calc. Creatinine Clearance 45 mL/min (70-130); Calcium 8.9 mg/dL (7.8-10.44); Carbon Dioxide 25 mmol/L (23-31); Chloride 106 mmol/L (98-107); Estimated GFR-MDRD 75; Glucose 124 mg/dL (83-110); Sodium 138 mmol/L (136-145)
[2018-06-24] MEDS ORDERED: Mometasone 200 MCG HFA INHALER INH SCH (07:00)
[2018-06-24 07:06] LABS: Potassium 3.5 mmol/L (3.5-5.1)
--- NOTE | 2018-06-24 07:55 | HP ---
DATE OF ADMISSION: 06/23/2018 CHIEF COMPLAINT: Fever, hypotension and hypoxia. HISTORY OF PRESENT ILLNESS: Mr. Bailey is an 87-year-old male with past medical history of severe dementia, recent nonsustained ventricular tachycardia and protein calorie malnutrition was se nt to the hospital because patient was hypotensive. The patient recently discharged from the [facility] after being treated for acute kidney injury as well as ventricular tachycardia[facility], the patient was hypotensive and hypoxic. The patient was p ut on oxygen initially saturation was 60%-70%, improved to 80%, so EMS was called because of change i n his condition, hypotension, hypoxia, less responsive. EMS found the patient with hypoxia and put o n nonrebreather as well as was found to have temperature of 100 to 101 according to the EMS. In the ER, the patient was evaluated. His blood pressure 107/62, temperature of 97, was found to have urina ry tract infection and acute kidney injury as well. He was given high dose of cefepime and vancomyci n along with a liter of normal saline. The patient is admitted for further evaluation and management . The patient was also found to have a lactic acid level of 2.8. PAST MEDICAL HISTORY: 1. Severe dementia. 2. History of nonsustained ventricular tachycardia. 3. Chronic anemia. 4. Protein-calorie malnutrition, moderate. 5. Hard of hearing. 6. History of Clostridium difficile colitis. PAST SURGICAL HISTORY: Status post defibrillator placement. CURRENT MEDICATIONS: The patient is on Tylenol p.r.n., vitamin C daily 500 mg, vitamin D 5000 units daily, vitamin B12 1000 mcg daily, Flovent inhaler daily p.r.n., Claritin 10 mg daily, Milk of Magnes ia p.r.n., Namenda 5 mg b.i.d., metoprolol succinate 100 mg daily, MiraLax 17 grams daily, Florastor 250 mg daily. ALLERGIES: NSAIDs. FAMILY HISTORY: Nothing contributory. SOCIAL HISTORY: Patient is a resident of [facility]. No history of alcohol. REVIEW OF SYSTEMS: Unable to obtain because the patient has dementia and not able to communicate kenny y well. PHYSICAL EXAMINATION: GENERAL: The patient is awake, not very alert. VITAL SIGNS: Temperature 98, pulse 72, respirations 20, blood pressure 151/67. HEENT: Normocephalic, atraumatic. Pupils equal and reactive. LUNGS: Breath sounds diminished bilaterally. Percussion not dull bilaterally. No rales. No rhonch i. CARDIAC: S1, S2 regular. ABDOMEN: Soft, no distention, no tenderness. Normal bowel sounds. RECTAL: Deferred. GASKET FORMER: No focal deficit. LABORATORY DATA: CBC shows WBC 6.5, hemoglobin 9.5, hematocrit 28, platelets 204. Metabolic panel s hows sodium 139, potassium 3.9, chloride 104, carbon dioxide 24, creatinine 1, glucose 133, lactic ac id 2.8, troponin 0.212, albumin 2.9. Urinalysis showed WBCs greater than 50, bacteria 2+, leukocyte esterase large. Chest x-ray negative. EKG showed wide QRS rhythm, left bundle branch block. ASSESSMENT: 1. Urinary tract infection. 2. Fever. 3. Rule out sepsis. 4. Hypotension and hypoxia, improved. 5. Dementia, severe. 6. Protein-calorie malnutrition, moderate. 7. Elevated troponin I, rule out myocardial infarction. 8. History of nonsustained ventricular tachycardia. PLAN: 1. Vital signs q.4 hours. 2. Activity as tolerated. 3. ALLERGIES: NSAIDS. 4. Hep-Lock. 5. IV fluids D5 half at 60 mL per hour. 6. Rocephin 2 grams IV piggyback daily. 7. Continue senior living medications. 8. Diet: Cardiac. 9. Patient is full code.
[2018-06-24] MEDS: Ascorbic Acid 500 mg Chewable Tablet PO SCH (09:59)
[2018-06-24] MEDS: Loratadine 10 MG TAB PO SCH (09:59)
[2018-06-24] MEDS: Saccharomyces boulardii 250 MG CAP PO SCH (09:59)
[2018-06-24] MEDS: Cyanocobalamin (Vitamin B-12) 1,000 MCG TAB PO SCH (09:59)
[2018-06-24] MEDS: cefTRIAXone\\ROCEPHIN 2 GM in Sodium Chloride 0.9% 100 ML IVPB SCH (10:00)
[2018-06-24 10:33] LABS: Iron 13 ug/dL (65-175); Iron Binding Capacity, Total 91 mcg/dL (261-462)
[2018-06-24] MEDS: Dextrose 5 %-0.45 % NaCl 1,000 ML IV SCH (12:53)
[2018-06-24] MEDS ORDERED: ISOVUE-370 76%-LOCM 1 ML ONE (14:13)
--- NOTE | 2018-06-24 17:28 | CT ---
CT ANGIOGRAM THORAX WITH IV CONTRAST AND 3D RECONSTRUCTIONS 06/24/18 HISTORY: Hypoxemia, hypotension without clear etiology. Pneumonia. COMPARISON: CT thorax on 05/27/18. FINDINGS: No filling defects are seen in the pulmonary arteries to suggest a pulmonary embolus. Vascular calcifications are seen in the coronary arteries with scattered vascular calcifications seen in the thoracic aorta. The thoracic aorta is not well opacified, but the thoracic aorta is normal in caliber. There is a dual lead left subclavian cardiac pacemaking device noted in place. Calcified mediastinal and hilar lymph nodes are again present with a few scattered calcified granulom miranda predominantly at the right lung base. There are two approximately 5 mm pulmonary nodules in the right upper lobe with two pulmonary nodules measuring 5 mm seen in the left upper lobe each of which was also present on the prior exam. There has been interval development of small to moderate sized bilateral pleural effusions, larger on the right with associated consolidation, probably related to passive atelectasis. Remote right sided rib fractures are again seen. Degenerative changes are again seen in the spine wit h a prominent hemangioma within an upper thoracic vertebral body again present. No other interval change. IMPRESSION: 1. Small to moderate sized bilateral pleural effusions with associated passive atelectasis. 2. No CT evidence of a pulmonary embolus. 3. Stable approximately 5 mm pulmonary nodules seen in the upper lobes bilaterally. Previously d escribed nodular densities in the lower lobes bilaterally are obscured due to pleural effusions. Exac t etiology for these pulmonary nodules is uncertain. Metastatic disease cannot be entirely excluded. POS: [facility]
--- NOTE | 2018-06-24 17:53 | PDOC.CTH ---
<Dejah Moore - Last Filed: 06/24/18 17:51> Cardiology Progress Note - Subjective EP progress note: Patient seen and evaluated. At baseline mental status. Unable to obtain ROS - Objective Vital Signs Temp Pulse Resp BP BP Pulse Ox 06/24/18 12:00 97.4 F L 63 16 126/69 98 06/24/18 08:00 97.4 F L 63 16 116/57 L 97 06/24/18 07:21 69 15 97 Admit Weight 133 lb 6.4 oz Weight 133 lb 9 oz 06/23/18 06/24/18 06/25/18 06:59 06:59 06:59 Intake Total 1043 100 Output Total 450 Balance 593 100 - Physical Examination General/Neuro: NAD Neck: carotid US brisk, no JVD present Lungs: CTA, unlabored respirations Heart: PMI normal, RRR Abdomen: NT/ND, soft - Telemetry Telemetry Rhythm: NSR - Labs Result Diagrams: 06/24/18 06:01 06/24/18 06:01 Troponin/CKMB Troponin I 0.212 ng/mL (< 0.028) H 06/23/18 17:55 - Assessment/Plan Recurrent paroxysmal SVT (40 beats) with underlying LBBB and aberrancy. Continue metoprolol succinate 100mg PO daily. Family prefers conservative management with his advanced age and dementia, so we will not pursue EPS/ablation. No ventricular tachycardia. Signing off. <Memo Lynn - Last Filed: 06/25/18 16:58> Cardiology Progress Note - Objective Vital Signs Temp Pulse Resp BP Pulse Ox 06/25/18 12:00 97.2 F L 62 18 120/62 95 06/25/18 08:10 96.2 F L 60 16 127/60 94 L 06/25/18 08:00 96.2 F L 60 16 94 L Admit Weight 133 lb 6.4 oz Weight 134 lb 12.8 oz 06/24/18 06/25/18 06/26/18 06:59 06:59 06:59 Intake Total 1043 1780 Output Total 450 831 Balance 593 949 - Labs Result Diagrams: 06/25/18 05:33 06/25/18 05:33 Troponin/CKMB Troponin I 0.212 ng/mL (< 0.028) H 06/23/18 17:55 Attending Addendum - Attending Addendum Date/Time: 06/25/18 0873 I personally evaluated the patient and discussed the management with Ms Moore. I agree with the History, Examination, Assessment and Plan documented above with any addition or exceptions noted below.
--- NOTE | 2018-06-24 21:47 | CON ---
DATE OF CONSULTATION: 06/24/2018 REASON FOR CONSULTATION: Hypotension, dyspnea and hypoxemia. HISTORY OF PRESENT ILLNESS: An 87-year-old, history of marked hearing impairment and some element of cognitive dysfunction who has one prior admission to this hospital a few days ago in May when he presented with weight loss, cough. At that time, he had a creatinine of 1.4 and a BUN of 37. On arrival, there was evidence of a wide complex tachycardia and he was started on beta leilani. The patient has had an AICD in place and this was interrogated and a gastrostomy tube was discussed with daughter who declined the placement of gastrostomy tube. After that, patient was transferred back to [facility], I was able to discuss his progress with the nurse and she stated that at this time, he was found to have a bluish skin discoloration and check his pulse oximeter, which was 60. They also mentioned that his blood pressure was low, apparently EMS measured at 50/30. He was immediately transferred to the emergency room again. On arrival, his vital signs showed a pulse of 70, respirations 24, O2 sats were 100% on nonrebreather Ventimask. His BP was 96/ 58. The exam demonstrated dry oral mucosa is mild respiratory distress, rhonchi were present in the left upper lobe and the right upper lobe. The heart exam was not described. Abdomen was not remarkable. Initial lab data showed a white cell count 6.5, hemoglobin 9.5, platelets 204 with 80% neutrophils. Initial labs with sodium 139, creatinine 1.03, carbon dioxide 24, calcium 9.7. Lactic acid 2.8 and 1.4. Liver profile normal. Albumin 2.9, globulin 3.3. Urinalysis with greater than 50 WBCs. I believe we have a pending urine culture. Also, within the past admission, there had been a diagnosis of C. difficile colitis, which was treated to completion with resolution of the diarrhea. The patient since admission has kept his O2 sats between 96% and 98% on room air and has not had a temperature elevation. Before admission, according to the nurse at [facility], there was no recorded temperature elevation either. Currently, Mr. Bailey is awake, but he closes his eyes and falls asleep frequently. He has very markedly impaired hearing and the only method of communications is via written sentences. It is difficult to communicate that way as well because of him falling asleep in the interval. According to [facility] staff, the patient's diarrhea has resolved. He had had no seizure activity. He was eating poorly and only will take a few bites. He was drinking some fluids around the clock. No vomiting had been recorded and he was voiding spontaneously. PAST MEDICAL HISTORY: Includes dementia, severe hearing impairment, cardiomyopathy with AICD with nonsustained V-tach, malnutrition, prior C. difficile colitis, multiple rib fractures, recently diagnosed in May. ALLERGIES: NSAIDs. FAMILY HISTORY: Noncontributory. SOCIAL HISTORY: [facility] resident. CURRENT MEDICATION LIST: Includes Tylenol, vitamin C, ceftriaxone. vitamin B12 , magnesium, Namenda, Toprol, MiraLax, Florastor. PHYSICAL EXAMINATION: VITAL SIGNS: T-max 98.8, blood pressure 116/57, pulse 63, respirations 16, O2 sat 98%. SKIN: Shows no areas of skin breakdown. The patient is voiding spontaneously and has a peripheral IV access. No lymphadenopathy. HEENT: Ocular movements are conjugate. Oral cavity shows no [place] teeth remaining in place, somewhat dry oral mucosa. NECK: Appears soft. No jugular vein distention. LUNGS: With symmetric air entry. I could not identify any crackles or wheezing. CARDIOVASCULAR: S1, S2, regular rate. AICD pocket site appears normal. Abdomen flat, soft, not distended, no ascites, no bladder distention, no organomegaly. EXTREMITIES: The patient has no joint inflammatory activity. He is able to move extremities, but he is diffusely weak. There is trace edema lower extremities. Pulses are 1+ in dorsalis pedis. He has a severe hearing impairment, is hard to check his cognitive status. LABORATORY AND X-RAY FINDINGS: Lab data has been reviewed above with microbiology studies with a positive C. diff study in the beginning of May. Current two sets of blood cultures thus far no growth and we have 2 sets of blood cultures pending. Urinalysis was abnormal, but I do not see any urine cultures ordered. Postvoid residual urinary volume is 150 mL Chest x-ray from yesterday with chronic lung changes. ASSESSMENT: Dementia with hearing impairment, cardiomyopathy with ventricular tachycardia with AICD in place. Recent admission with difficile colitis and now with severe hypoxemia and hypotension, without clear-cut etiology and hypotension. DISCUSSION: Differential diagnosis includes thromboembolism with pulmonary embolism, sepsis from urinary tract source. Pneumonia is less likely. Other sources of bacteremia are not apparent at this time. We will order a CT angio of the chest, submit the urine culture, although the antibiotics have been already started. MTDD
[2018-06-25 06:13] LABS: Anion Gap 12 mmol/L (10-20); BUN (Urea Nitrogen) 24 mg/dL (8.4-25.7); Calc. Creatinine Clearance 44 mL/min (70-130); Calcium 9.3 mg/dL (7.8-10.44); Carbon Dioxide 25 mmol/L (23-31); Chloride 105 mmol/L (98-107); Estimated GFR-MDRD 73; Glucose 120 mg/dL (83-110); Potassium 3.6 mmol/L (3.5-5.1); Sodium 138 mmol/L (136-145)
[2018-06-25 06:18] LABS: Band 22 % (5-11); Hemoglobin 7.7 g/dL (14.0-18.0); Lymphocytes 3 % (21-51); MDiff Complete? YES; Mean Corpuscular HGB CONC 32.6 g/dL (32.0-36.0); Mean Corpuscular Hemoglobin 34.8 pg (27.0-31.0); Mean Platelet Volume 8.2 fL (7.4-10.4); Monocytes 4 % (0-10); Neutrophil 71 % (42-75); PLT Morphology Comment Appears Decreased; Platelet Count 119 thou/uL (130-400); RBC Distribution Width 14.4 % (11.5-14.5); Red Blood Cell (RBC) Count 2.21 mill/uL (4.70-6.10); White Blood Cell (WBC) Count 8.8 thou/uL (4.8-10.8)
[2018-06-25] MEDS: cefTRIAXone\\ROCEPHIN 2 GM in Sodium Chloride 0.9% 100 ML IVPB SCH (09:06)
[2018-06-25] MEDS: Ascorbic Acid 500 mg Chewable Tablet PO SCH (09:15)
[2018-06-25] MEDS: Saccharomyces boulardii 250 MG CAP PO SCH (09:16)
[2018-06-25] MEDS: Loratadine 10 MG TAB PO SCH (09:16)
[2018-06-25] MEDS: Cyanocobalamin (Vitamin B-12) 1,000 MCG TAB PO SCH (09:16)
--- NOTE | 2018-06-25 12:10 | PQF ---
CLINICAL DOCUMENTATION IMPROVEMENT CLARIFICATION FORM: ICD-10 Updated PLEASE DO AN ADDENDUM TO THE PROGRESS NOTE WITH ANY DOCUMENTATION UPDATES OR ADDITIONS AND CARRY THROUGH TO DC SUMMARY. THANK YOU. DATE: 06/25 ATTN: DR. Perlita CONRAD Please exercise your independent, professional judgment in responding to the clarification form. Clinical indicators are provided on the bottom of this form for your review. Please check appropriate box(s) to clarify if the following diagnosis has been ruled in or ruled out: SEPSIS [ ] Ruled in diagnosis [ ] Continue to treat [ ] Resolved [ y] Ruled out diagnosis [ ] Other diagnosis [ ] Unable to determine For continuity of documentation, please document condition throughout progress notes and discharge summary. Thank You. CLINICAL INDICATORS - SIGNS / SYMPTOMS / LABS ER PRESENTATION 06/23: BROUGHT FROM [place] VIA EMS FOR FEVER & LOW BLOOD PRESSURE. PER EMS PT W/TEMP 102 AT [place] & SYSTOLIC BP 60'S. EMS PLACED ON NRB FOR SOB; IN ER PLACED ON 3L NC, 100%. BP 96/58 - 146/73 RR: 24 TREATMENT IN ER: 2L NS, IV VANCOMYCIN & CEFEPIME ER PHYSICIAN DOCUMENTATION 06/23: SEPSIS ALERT CALLED; ...UA SUGGESTIVE OF INFECTION; ...APPEARS TO BE UTI ETIOLOGY OF SEPSIS PHYSICIAN H&P 06/23: HX OF PRESENT ILLNESS: ...EMS FOUND THE PATIENT W/HYPOXIA & PUT ON NRB WELL WAS FOUND TO HAVE TEMP OF 100 - 101 ACCORDING TO EMS. ...PT FOUND TO HAVE A LACTIC ACID LEVEL OF 2.8 ASSESSMENT: 1) UTI; 2) FEVER; 3) RULE OUT SEPSIS NO FURTHER MENTION OF SEPSIS RISK FACTORS: FEVER (101 PER EMS) UTI TREATMENTS: IV ANTIBIOTICS (VANCOMYCIN & CEFEPIME IN ER 06/23; ROCEPHIN 06/24 - PRESENT) INFECTIOUS DX CONS IVF (DF 1/2 NS, 94 - 5; NS 06/23) THANK YOU! Jaycee (This form is maintained as a part of the permanent medical record) 2014 [employer]. All Rights Reserved Jaycee Rosas RN, BSN [email or web address] Office: [phone] [email or web address]
--- NOTE | 2018-06-25 12:33 | PQF ---
CLINICAL DOCUMENTATION IMPROVEMENT CLARIFICATION FORM: ICD-10 Updated PLEASE DO AN ADDENDUM TO THE PROGRESS NOTE WITH ANY DOCUMENTATION UPDATES OR ADDITIONS AND CARRY THROUGH TO DC SUMMARY. THANK YOU. DATE: 06/25 ATTN: DR. Perlita CONRAD Please exercise your independent, professional judgment in responding to the clarification form. Clinical indicators are provided on the bottom of this form for your review. Please check appropriate box(s): ELEVATED TROPONIN I, RULE OUT MYOCARDIAL INFARCTION TYPE OF UT: [ ] NSTEMI [ ] AMI Type II [ ] Demand Ischemia [ ] Ruled in diagnosis [ ] Continue to treat [ ] Resolved [ y ] Ruled out diagnosis [ ] Other diagnosis [ ] Unable to determine For continuity of documentation, please document condition throughout progress notes and discharge summary. Thank You. CLINICAL INDICATORS - SIGNS / SYMPTOMS / LABS ER PHYSICIAN DOCUMENTATION 06/23: TROPONIN NOTED TO BE ELEVATED. WILL NEED TRENDING--COULD BE FROM PREVIOUS NSTEMI?? NEED TO CHECK CK PHYSICIAN H&P 06/23: HX OF PRESENT ILLNESS: ...RECENT HX OF NSVT, RECENTLY DISCHARGED FROM HOSPITAL AFTER BEING TREATED FOR LETI WELL VENTRICULAR TACHYCARDIA. H&P ASSESSMENT: 7) ELEVATED TROPONIN I, RULE OUT MYOCARDIAL INFARCTION; 8) HX OF NSVT EP DOCUMENTATION 06/24: ASSESSMENT/PLAN: RECURRENT PAROXYSMAL SVT (40 BEATS) W/ UNDERLYING LBBB & ABERRANCY. ...NO VENTRICULAR TACHYCARDIA. FAMILY PREFERS CONSERVATIVE MANAGEMENT. SIGNING OFF. TROPONIN I: 0.225, 0.216, 0.212 (06/23) RISK FACTORS: ELEVATED TROPONIN I UTI RECURRENT SVT PER EP DOCUMENTATION FEVER TREATMENTS: EP CONSULT (06/24) SERIAL CARDIAC ENZYMES X3 (06/23) THANK YOU! Jaycee (This form is maintained as a part of the permanent medical record) 2014 [employer]. All Rights Reserved Jaycee Rosas RN, BSN [email or web address] Office: [phone] [facility]
[2018-06-26] MEDS: cefTRIAXone\\ROCEPHIN 2 GM in Sodium Chloride 0.9% 100 ML IVPB SCH (07:56)
[2018-06-26] MEDS: Loratadine 10 MG TAB PO SCH (08:00)
[2018-06-26] MEDS: Saccharomyces boulardii 250 MG CAP PO SCH (08:00)
[2018-06-26] MEDS: Ascorbic Acid 500 mg Chewable Tablet PO SCH (08:00)
[2018-06-26] MEDS: Cyanocobalamin (Vitamin B-12) 1,000 MCG TAB PO SCH (08:01)
[2018-06-27 05:18] LABS: #Eosinphils 0.1 thou/uL (0.0-0.7); #Lymphocytes 0.7 thou/uL (1.20-3.40); #Monocytes 0.4 thou/uL (0.11-0.59); #Neutrophils 2.4 thou/uL (1.40-6.50); %Basophils 0.6 % (0.0-1.0); %Eosinophils 3.2 % (0.0-10.0); %Monocytes 10.9 % (0.0-10.0); %Neutrophils 66.4 % (42.0-75.0); Hemoglobin 8.2 g/dL (14.0-18.0); Mean Corpuscular HGB CONC 34.1 g/dL (32.0-36.0); Mean Corpuscular Hemoglobin 36.6 pg (27.0-31.0); Mean Platelet Volume 8.3 fL (7.4-10.4); Platelet Count 138 thou/uL (130-400); RBC Distribution Width 14.1 % (11.5-14.5); Red Blood Cell (RBC) Count 2.24 mill/uL (4.70-6.10); White Blood Cell (WBC) Count 3.7 thou/uL (4.8-10.8)
[2018-06-27 05:38] LABS: Anion Gap 11 mmol/L (10-20); BUN (Urea Nitrogen) 22 mg/dL (8.4-25.7); Calc. Creatinine Clearance 59 mL/min (70-130); Calcium 8.9 mg/dL (7.8-10.44); Carbon Dioxide 23 mmol/L (23-31); Chloride 107 mmol/L (98-107); Estimated GFR-MDRD Greater than 90; Glucose 101 mg/dL (83-110); Potassium 3.4 mmol/L (3.5-5.1); Sodium 138 mmol/L (136-145)
[2018-06-27] MEDS: Loratadine 10 MG TAB PO SCH (09:18)
[2018-06-27] MEDS: Ascorbic Acid 500 mg Chewable Tablet PO SCH (09:18)
[2018-06-27] MEDS: Cyanocobalamin (Vitamin B-12) 1,000 MCG TAB PO SCH (09:18)
[2018-06-27] MEDS: Saccharomyces boulardii 250 MG CAP PO SCH (09:18)
[2018-06-27] MEDS: cefTRIAXone\\ROCEPHIN 2 GM in Sodium Chloride 0.9% 100 ML IVPB SCH (09:36)
[2018-06-27] MEDS: Potassium Chloride 20 MEQ TAB PO SCH ×2 (14:53→18:06)
--- NOTE | 2018-06-27 21:46 | EKG ---
Test Reason : Blood Pressure : / mmHG Vent. Rate : 066 BPM Atrial Rate : 066 BPM P-R Int : 000 ms QRS Dur : 132 ms QT Int : 458 ms P-R-T Axes : 000 035 191 degrees QTc Int : 480 ms Wide QRS rhythm Left bundle branch block Abnormal ECG Confirmed by RADHA Delarosa, SURY ([id number]), newspaper photo editor SHANE CANTU ([id number]) on 06/27/2018 9:46:22 PM Referred By: Confirmed By:SURY GARCIA M.D.
[2018-06-28 06:02] LABS: Anion Gap 10 mmol/L (10-20); BUN (Urea Nitrogen) 20 mg/dL (8.4-25.7); Calc. Creatinine Clearance 63 mL/min (70-130); Calcium 9.1 mg/dL (7.8-10.44); Carbon Dioxide 28 mmol/L (23-31); Chloride 106 mmol/L (98-107); Estimated GFR-MDRD Greater than 90; Glucose 109 mg/dL (83-110); Potassium 3.8 mmol/L (3.5-5.1); Sodium 140 mmol/L (136-145)
[2018-06-28 06:03] LABS: #Eosinphils 0.1 thou/uL (0.0-0.7); #Lymphocytes 0.8 thou/uL (1.20-3.40); #Monocytes 0.4 thou/uL (0.11-0.59); #Neutrophils 1.9 thou/uL (1.40-6.50); %Basophils 0.1 % (0.0-1.0); %Eosinophils 4.1 % (0.0-10.0); %Lymphocytes 24.2 % (21.0-51.0); %Monocytes 11.4 % (0.0-10.0); %Neutrophils 60.2 % (42.0-75.0); Hemoglobin 7.8 g/dL (14.0-18.0); Mean Corpuscular HGB CONC 33.2 g/dL (32.0-36.0); Mean Corpuscular Hemoglobin 35.3 pg (27.0-31.0); Mean Platelet Volume 8.2 fL (7.4-10.4); Platelet Count 130 thou/uL (130-400); RBC Distribution Width 14.2 % (11.5-14.5); White Blood Cell (WBC) Count 3.2 thou/uL (4.8-10.8)
[2018-06-28] MEDS: cefTRIAXone\\ROCEPHIN 2 GM in Sodium Chloride 0.9% 100 ML IVPB SCH (08:58)
[2018-06-28] MEDS: Saccharomyces boulardii 250 MG CAP PO SCH (08:59)
[2018-06-28] MEDS: Ascorbic Acid 500 mg Chewable Tablet PO SCH (08:59)
[2018-06-28] MEDS: Loratadine 10 MG TAB PO SCH (08:59)
[2018-06-28] MEDS: Cyanocobalamin (Vitamin B-12) 1,000 MCG TAB PO SCH (08:59)
[2018-06-29] MEDS: cefTRIAXone\\ROCEPHIN 2 GM in Sodium Chloride 0.9% 100 ML IVPB SCH (09:50)
[2018-06-29] MEDS: Saccharomyces boulardii 250 MG CAP PO SCH (09:54)
[2018-06-29] MEDS: Cyanocobalamin (Vitamin B-12) 1,000 MCG TAB PO SCH (09:54)
[2018-06-29] MEDS: Loratadine 10 MG TAB PO SCH (09:54)
[2018-06-29] MEDS: Ascorbic Acid 500 mg Chewable Tablet PO SCH (09:55)
[2018-06-29 15:50] VITALS: BMI 18.8
[2018-06-29] MEDS: Ciprofloxacin 500 MG TAB PO SCH (20:15)
[2018-06-30] MEDS: Ciprofloxacin 500 MG TAB PO SCH (05:04)
[2018-06-30] MEDS: Cyanocobalamin (Vitamin B-12) 1,000 MCG TAB PO SCH (11:10)
[2018-06-30] MEDS: Loratadine 10 MG TAB PO SCH (11:10)
[2018-06-30] MEDS: Saccharomyces boulardii 250 MG CAP PO SCH (11:10)
[2018-06-30] MEDS: Ascorbic Acid 500 mg Chewable Tablet PO SCH (11:10)
[2018-06-30 13:34] VITALS: BP 90/54; TEMP 96.4
--- NOTE | 2018-07-01 14:45 | DIS ---
DATE OF ADMISSION: 06/23/2018 DATE OF DISCHARGE: 06/30/2018 ADMITTING DIAGNOSES: 1. Urinary tract infection. 2. Fever, rule out sepsis. 3. Hypotension and hypoxia, improved. 4. Dementia, severe. 5. Severe protein calorie malnutrition. 6. Failure to thrive. 7. Elevated troponin, rule out myocardial infarction. 8. History of nonsustained ventricular tachycardia. FINAL DIAGNOSES: 1. Urinary tract infection, improved. 2. Fever, resolved. 3. No evidence of sepsis. 4. Hypotension and hypoxia, improved. 5. Severe dementia. 6. Elevated troponin. No evidence of acute myocardial infarction. 7. Nonsustained ventricular tachycardia, medical management. 8. Severe protein-calorie malnutrition. 9. Failure to thrive. BRIEF SUMMARY OF HOSPITAL COURSE: Mr. Bailey is an 87-year-old male with past medical history of severe dementia and ventricular tachycardia, who was recently in the hospital, admitted because of fever. The urine cultures done showed positive urine culture, which showed growth of E. coli sensitive to all antibiotics. The patient was continued on Rocephin while in the hospital. The patient also had acute kidney injury, which was corrected with fluids. The patient has not been eating well. He takes ensure sometimes. His condition was discussed with his daughter who has power of house decorator and she indicated he does not want any PEG tube feeding for him and he does not want any aggressive approach for his medical problems neither. The patient was also found to have chronic anemia. His hemoglobin stayed between 7 and 8. Blood culture revealed no growth. His vital signs remained stable while in the hospital. He was alert , awake, not totally oriented. Hard of hearing. He did not have any more fever. So, in view of improvement in his fever, the patient is being discharged back to [facility]. At the time of discharge, he was stable. PHYSICAL EXAMINATION: VITAL SIGNS: Stable. LUNGS: Clear. HEART: Sounds regular. ABDOMEN: Soft, nontender. Bowel sounds present. DISCHARGE MEDICATIONS: Include Namenda 5 mg daily, Flovent Diskus 50 mcg daily , vitamin B12 1000 mcg daily, vitamin D 500 units daily, vitamin C 500 mg daily , Tylenol p.r.n., Florastor 250 mg daily, MiraLax 17 g daily, Claritin 10 mg daily, metoprolol succinate 100 mg daily, Cipro 500 b.i.d. for 6 days. FOLLOWUP: The patient will be followed up at correction. The patient is still FULL CODE and his condition was discussed again with daughter. MARY
== END 2018-06-30 13:05 | DRG 690 ==
LOC: ERS 09:15 → 2NO 13:53
PROVIDERS: ADMIT Internal Medicine; ATTEND Internal Medicine
DX: N39.0 Urinary tract infection, site not specified (principal); I42.9 Cardiomyopathy, unspecified; I47.2 Ventricular tachycardia; N17.9 Acute kidney failure, unspecified; E44.0 Moderate protein-calorie malnutrition; Z68.1 Body mass index [BMI] 19.9 or less, adult; F03.90 Unspecified dementia, unspecified severity, without behavioral disturbance, psychotic disturbance, mood disturbance, and anxiety; Z95.810 Presence of automatic (implantable) cardiac defibrillator; H91.90 Unspecified hearing loss, unspecified ear; R09.02 Hypoxemia; I95.9 Hypotension, unspecified; D64.9 Anemia, unspecified; Z88.8 Allergy status to other drugs, medicaments and biological substances; I44.7 Left bundle-branch block, unspecified; E87.6 Hypokalemia; I25.2 Old myocardial infarction
CPT/HCPCS: 36415; 36416; 71045; 71275; 80048; 80053; 81003; 81015; 82274; 82728; 83540; 83550; 83605; 84145; 84484; 85025; 87040; 87077; 87086; 87186; 93005; 94664; 94760; 96361; 96365; 96367; A4216; J0692; J0696; J3370; J7050

== ENCOUNTER 2018-06-30 21:35 | Inpatient (IN) | payer MEDICARE, BC ==
--- NOTE | 2018-06-30 22:15 | RAD ---
SINGLE VIEW OF THE CHEST: 06/30/18 COMPARISON: 06/23/18 HISTORY: Seizure-like activity. FINDINGS: Single view of the chest shows a cardiomediastinal silhouette which is upper limits of normal in size with atherosclerotic calcifications in the aorta. The pacemaker is unchanged in position. Chronic in terstitial lung markings are present. There is stable air space opacity projecting over the right low er lobe which may be due to scarring or an infiltrate. IMPRESSION: Stable exam. POS: [facility]
[2018-06-30] MEDS ORDERED: Piperacillin/Tazobactam 4.5 GM VIAL ONE (22:22)
[2018-06-30] MEDS ORDERED: Vancomycin HCl 1 GM in Premix Bag 1 BAG IVPB SCH (22:30)
--- NOTE | 2018-06-30 22:44 | CT ---
CT OF THE BRAIN WITHOUT CONTRAST: 06/30/18 COMPARISON: 05/26/18 HISTORY: Seizure-like activity and altered mental status. TECHNIQUE: Multiple contiguous axial images were obtained in a CT of the brain without contrast. FINDINGS: There is scattered hypodensities in the subcortical and periventricular white matter, likely secondar y to small vessel ischemic disease. There is no evidence of hydrocephalus, intracranial hemorrhage or extra-axial fluid collections. The calvarium and overlying soft tissues are unremarkable. The visualized paranasal sinuses and masto id air cells are well aerated. IMPRESSION: 1. No evidence of acute intracranial abnormality. 2. Small vessel ischemic disease. POS: [facility]
[2018-06-30 23:15] LABS: #Eosinphils 0.1 thou/uL (0.0-0.7); #Lymphocytes 0.5 thou/uL (1.20-3.40); #Monocytes 0.4 thou/uL (0.11-0.59); #Neutrophils 10.2 thou/uL (1.40-6.50); %Eosinophils 0.5 % (0.0-10.0); %Lymphocytes 4.7 % (21.0-51.0); %Monocytes 3.4 % (0.0-10.0); %Neutrophils 91.4 % (42.0-75.0); Hemoglobin 8.9 g/dL (14.0-18.0); Mean Corpuscular Hemoglobin 34.1 pg (27.0-31.0); Platelet Count 166 thou/uL (130-400); RBC Distribution Width 14.9 % (11.5-14.5); Red Blood Cell (RBC) Count 2.62 mill/uL (4.70-6.10); White Blood Cell (WBC) Count 11.2 thou/uL (4.8-10.8)
[2018-06-30] MEDS ORDERED: Ondansetron HCl/PF 4 MG/2 ML Vial ONE (23:36)
[2018-06-30 23:42] LABS: ALT (SGPT) 46 U/L (8-55); AST (SGOT) 22 U/L (5-34); Albumin 2.7 g/dL (3.4-4.8); Alkaline Phosphatase 94 U/L (40-150); Anion Gap 13 mmol/L (10-20); BUN (Urea Nitrogen) 28 mg/dL (8.4-25.7); Bilirubin, Total 0.7 mg/dL (0.2-1.2); Calc. Creatinine Clearance 0 mL/min (70-130); Calcium 9.1 mg/dL (7.8-10.44); Carbon Dioxide 25 mmol/L (23-31); Chloride 106 mmol/L (98-107); Estimated GFR-MDRD 51; Glucose 131 mg/dL (83-110); Lipase 21 U/L (8-78); Magnesium 1.5 mg/dL (1.6-2.6); Potassium 4.2 mmol/L (3.5-5.1); Protein, Total 5.7 g/dL (5.8-8.1); Sodium 140 mmol/L (136-145)
[2018-06-30 23:46] LABS: CKMB 1.4 ng/mL (0-6.6); Troponin I 0.161 ng/mL (< 0.028)
[2018-06-30] MEDS ORDERED: Norepinephrine 8 MG/0.9% NS 250 ML ONE (23:48)
[2018-07-01] MEDS ORDERED: Magnesium Sulfate 2 GM/100 ML BAG ONE (00:25)
[2018-07-01 01:10] LABS: Bilirubin Negative (Negative); Blood, Urine Trace (Negative); Clarity CLOUDY (Clear); Glucose, Urine (Dipstick) Negative (Negative); Leukocyte Large (Negative); Nitrite Negative (Negative); Protein, Urine (Dipstick) 30 mg/dL (Neg-Trace); Specific Gravity, Urine 1.018 (1.002-1.036); Urobilinogen 0.2 mg/dL (0.2-1.0); pH, Urine 5.5 (5.0-9.0)
[2018-07-01 01:13] LABS: Bacteria/HPF Rare-Few HPF (None Seen); Hyaline Casts/LPF 0-3 HYALINE CAST LPF (0-3 Hyaline); Pathc Cast-AUWi Flag 0.29 (0-2.49); RBC/HPF 0-3 HPF (0-3); Squamous Epithelial 0-3 HPF (0-3)
[2018-07-01 01:14] LABS: Yeast-AUWi Flag 43.7 (0-25.0)
[2018-07-01 01:21] LABS: Yeast-All Forms None Seen HPF (None Seen)
[2018-07-01] MEDS ORDERED: Norepinephrine 8 MG/250 ML BAG IVPB PRN (02:10)
[2018-07-01 02:26] LABS: Troponin I 0.177 ng/mL (< 0.028)
[2018-07-01] MEDS ORDERED: Ondansetron HCl/PF 4 MG/2 ML Vial IVP PRN (03:30)
[2018-07-01 03:50] LABS: Lactic Acid 2.8 mmol/L (0.5-2.2)
[2018-07-01 04:15] LABS: Troponin I 0.173 ng/mL (< 0.028)
[2018-07-01] MEDS ORDERED: Piperacillin/Tazobactam 4.5 GM in Sodium Chloride 0.9% 100 ML IVPB SCH (06:00)
[2018-07-01] MEDS: Piperacillin/Tazobactam 3.375 GM in Sodium Chloride 0.9% 100 ML IVPB SCH ×3 (06:01→17:02)
[2018-07-01 06:04] LABS: Anion Gap 17 mmol/L (10-20); BUN (Urea Nitrogen) 29 mg/dL (8.4-25.7); Calc. Creatinine Clearance 32 mL/min (70-130); Calcium 9.4 mg/dL (7.8-10.44); Carbon Dioxide 23 mmol/L (23-31); Chloride 105 mmol/L (98-107); Estimated GFR-MDRD 48; Glucose 152 mg/dL (83-110); Magnesium 2.3 mg/dL (1.6-2.6); Sodium 141 mmol/L (136-145)
[2018-07-01 06:08] LABS: #Lymphocytes 0.9 thou/uL (1.20-3.40); #Monocytes 0.7 thou/uL (0.11-0.59); #Neutrophils 15.9 thou/uL (1.40-6.50); %Eosinophils 0.1 % (0.0-10.0); %Lymphocytes 5.3 % (21.0-51.0); %Monocytes 4.1 % (0.0-10.0); %Neutrophils 90.4 % (42.0-75.0); Hemoglobin 8.9 g/dL (14.0-18.0); Mean Corpuscular HGB CONC 33.2 g/dL (32.0-36.0); Mean Corpuscular Hemoglobin 35.5 pg (27.0-31.0); Mean Platelet Volume 8.3 fL (7.4-10.4); Platelet Count 273 thou/uL (130-400); RBC Distribution Width 14.8 % (11.5-14.5); White Blood Cell (WBC) Count 17.6 thou/uL (4.8-10.8)
--- NOTE | 2018-07-01 07:12 | PDOC.PULCN ---
<Nikki Dorantes - Last Filed: 07/01/18 11:24> Pulmonology Consult: HPI - Date of Consult Date: 07/01/18 Time: 09:00 - Consult Details Reason for Consult: ICU Admission Requesting Physician: Dr. Franci Eller, ED Physician - History of Present Illness HPI: GLORIA AVENDAÑO is a 87 year-old M with 4 recent admissions to the hospital over the last 2 months, most recently admitted for UTI, and PMH of dementia and arrhythmias presented to the hospital for seizure-like activity. History is limited as patient is with severe dementia and family is not present. ED documentation reports seizure-like activity witnessed by daughter who reports two separate events lasting minutes and described as violent shaking that quickly resolved. No post ictal period is described. No reported fever at home. No hx of seizure DO. As mentioned above patient has had recent decline with 4 admissions, UTI, Vtach, Cdiff, and weakness. Upon arrival to the ED patients BP is low-normal but dropped as low as 60's/30's. Pulse rate varied between tachycardia in the 150's and 70's. He was given Vancomycin, Zosyn, ASA , 30ml/kg NS, and Levophed. Of note, on prior admissions, Dr. Lynn has had discussion with family about invasive measures for patients arrhythmias, and family declined. Also it has been mentioned to family before that a PEG tube would be needed, which they declined. Pulmonology Consult: ROS - Review of Systems ROS unobtainable: due to mental status Pulmonology Consult: PMH Source: other (record review) Past Medical History: 1. Dementia 2. HTN 3. Hx of Cdiff 4. Hx of recent E. Coli UTI, lemus-sensitive 5. Protein-Calorie Malnutrition 6. Hearing Loss 7. Hx of non-sustained Vtach - Family History Family history: reviewed and not pertinent - Social History Smoking Status: Unknown if ever smoked Alcohol Use: none Drug Use History: none Living [facility]uation[facility] Pulmonology Consult: Meds - Medications MAR Reviewed: Yes Medications: Current Medications Enoxaparin Sodium (Lovenox) 40 mg SC 0900 [facility] Norepinephrine Bitartrate (Levophed) 250 mls @ 0 mls/hr IVPB INF PRN; Protocol PRN Reason: Blood Pressure Piperacillin Sod/Tazobactam (Sod 3.375 gm/ Sodium Chloride) 100 mls @ 200 mls/ hr IVPB Q6HR [facility] Last Admin: 07/01/18 06:01 Dose: 100 mls Ondansetron HCl (Zofran) 4 mg IVP Q6H PRN PRN Reason: Nausea/Vomiting Pantoprazole Sodium (Protonix) 40 mg IVP Q24HR [facility] Pneumococcal 13-Valent Conj Vacc (Prevnar) 0.5 ml IM .ONCE ONE Stop: 07/03/18 09:01 Sodium Chloride (Flush - Normal Saline) 10 ml IVF Q12HR [facility]IU Sodium Chloride (Flush - Normal Saline) 10 ml IVF PRN PRN PRN Reason: Saline Flush - Allergies Allergies/Adverse Reactions: Allergies Allergy/AdvReac Type Severity Reaction Status Date / Time NSAIDS (Non-Steroidal Allergy Verified 05/27/18 04:51 Anti-Inflamma Pulmonology Consult: PE - Physical Exam Constitutional: NAD Deviation from normal: difficult to arouse HEENT: moist MMs Neck: no nodes, no JVD Cardiovascular: RRR Deviation from normal: 3/6 systolic murmur Respiratory: clear to auscultation anteriorly (but poor respiratory effort.) Gastrointestinal: soft, non-tender, no distention, positive bowel sounds Musculoskeletal: no edema, pulses present Deviation from normal: generalized weakness, GCS 13, does not follow commands but responds to pain Deviation from normal: Confused, AOx0, visiual hallucinations Deviation from normal: severe skin tenting, Cap refill >2sec Pulmonology Consult: Results - Labs Result Diagrams: 07/01/18 03:25 07/01/18 03:25 - EKG Data EKG Interpreted by Myself Pulmonology Consult: A/P - Problem (1) Shock Current Visit: Yes Code(s): R57.9 - SHOCK, UNSPECIFIED Status: Acute (2) Failure to thrive Current Visit: Yes Code(s): WFP3556 - Status: Acute (3) Dementia Current Visit: No Code(s): F03.90 - UNSPECIFIED DEMENTIA WITHOUT BEHAVIORAL DISTURBANCE Status: Chronic (4) Moderate protein-calorie malnutrition Current Visit: No Code(s): E44.0 - MODERATE PROTEIN-CALORIE MALNUTRITION Status: Chronic (5) LETI (acute kidney injury) Current Visit: No Code(s): N17.9 - ACUTE KIDNEY FAILURE, UNSPECIFIED Status : Resolved - Time Time: 50% of the time was spent in coordination of care (as documented) at patient's floor/unit and/or counseling patient. Time with Patient: greater than 50 minutes - Plan Plan: 1. Septic Shock vs Hypovolemic Shock- Severe dehydration with FTT, s/p 30mg/kg bolus but still dry. Will give 1L NS and d/c Levophed. Septic shock not likely but possible with elevation in WBC and possible CXR findings consistent with infection. Will continue Zosyn and get procalcitonin to further evaluate. LA elevated to 2.8, will repeat after IVF. Blood and urine cx pending. 2. Failure to Thrive with Protein-Calorie Malnutrition- prior reports of family opting out of PEG tube placement. It appears patient is coming near to the end of his life. Will consult palliative care. 3. Tachy-arrhythmia- Has been seen in the past and family opted for medical management. Cardiology and EP consulted- report nothing further to be done. 4. LETI- Likely prerenal, will continue IVF. 5. Delirium with underlying Severe Dementia Lines: R IJ (07/01), peripheral x2 (07/01) Code Status: DNI DVT Ppx: Lovenox GI Ppx: Protonix <Walter Galarza M - Last Filed: 07/03/18 16:59> Pulmonology Consult: HPI - History of Present Illness HPI: GLORIA AVENDAÑO Mary Ellen is a 87 year-old M Pulmonology Consult: Meds - Medications Medications: Current Medications Acetaminophen (Tylenol) 650 mg PO Q4H PRN PRN Reason: Mild Pain (1-3) Last Admin: 07/02/18 21:33 Dose: 650 mg Amiodarone HCl (Cordarone) 200 mg PO BID [facility] Stop: 07/15/18 21:01 Last Admin: 07/03/18 08:36 Dose: 200 mg Amiodarone HCl (Cordarone) 200 mg PO DAILY [facility] Enoxaparin Sodium (Lovenox) 40 mg SC 09 [facility] Last Admin: 07/03/18 08:36 Dose: 40 mg Piperacillin Sod/Tazobactam (Sod 3.375 gm/ Sodium Chloride) 100 mls @ 200 mls/ hr IVPB Q6HR [facility] Last Admin: 07/03/18 12:37 Dose: 100 mls Sodium Chloride (1/2 Normal Saline) 1,000 mls @ 100 mls/hr IV .Q10H [facility]IU Last Admin: 07/03/18 14:58 Dose: 1,000 mls Potassium Chloride 20 meq/ (Device) 100 mls @ 25 mls/hr IVPB 1500 [facility] Stop: 07/03/18 19:00 Last Admin: 07/03/18 15:04 Dose: 100 mls Ondansetron HCl (Zofran) 4 mg IVP Q6H PRN PRN Reason: Nausea/Vomiting Pantoprazole Sodium (Protonix) 40 mg IVP Q24HR [facility] Last Admin: 07/03/18 08:36 Dose: 40 mg Sodium Chloride (Flush - Normal Saline) 10 ml IVF Q12HR [facility] Last Admin: 07/03/18 08:37 Dose: Not Given Sodium Chloride (Flush - Normal Saline) 10 ml IVF PRN PRN PRN Reason: Saline Flush Tramadol HCl (Ultram) 50 mg PO Q6H PRN PRN Reason: Moderate Pain (4-6) Last Admin: 07/01/18 20:26 Dose: 50 mg Pulmonology Consult: Results - Labs Result Diagrams: 07/03/18 03:15 07/03/18 03:15 Pulmonology Consult: A/P - Time Time: 50% of the time was spent in coordination of care (as documented) at patient's floor/unit and/or counseling patient. Attending Addendum - Attending Addendum Date/Time: 07/03/18 6010 I personally evaluated the patient and discussed the management with Dr. Dorantes. I agree with the History, Examination, Assessment and Plan documented above with any addition or exceptions noted below. 70 minutes have been devoted to this patient in various activities. I personally reviewed all imaging studies and laboratory data noted within this document. For fifty percent of this time, I was interacting with the patient at the bedside or coordinating care with the care team. For the remainder of the time I was immediately available to the patient in the hospital unit.
[2018-07-01] MEDS ORDERED: Sodium Chloride 0.9% 1,000 ML IV SCH (09:45)
[2018-07-01] MEDS: Enoxaparin Sodium 40 MG/0.4 ML SYRINGE SC SCH (10:15)
[2018-07-01] MEDS: Pantoprazole 40 MG VIAL IVP SCH (10:15)
[2018-07-01] MEDS ORDERED: Vancomycin HCl 1 GM in Premix Bag 1 BAG IVPB SCH (12:00)
[2018-07-01] MEDS: Sodium Chloride 0.45% 1,000 ML IV SCH (12:12)
--- NOTE | 2018-07-01 12:59 | HP ---
DATE OF ADMISSION: 07/01/2018 CHIEF COMPLAINT: Questionable seizure. HISTORY OF PRESENT ILLNESS: Mr. Bailey is an 87-year-old male who was discharged yesterday from the hospital after being treated for UTI. It was noticed the patient was shaking and had a staring look. The patient's daughter was there when this episode happened. The patient had some shaking when they were giving his medications. They found him to be shaking of all extremities. So the correction staff felt he may be having seizure activity. The patient' s blood pressure was 90/60 and temperature was 99 at the [facility]. The daughter reports the patient had 2 separate events, each lasting a few minutes, but the patient was awake during these episodes and he was able to communicate verbally immediately after each episode. The patient was brought to the emergency room because of these episodes. He was found to be hypotensive in the ER, his blood pressure was 82/50. The patient received IV fluids bolus as well as Zosyn and vancomycin because the ER physician felt he may have infiltrate right lower lobe, possible pneumonia. They felt the patient probably has sepsis and septic shock so they gave fluids, antibiotics, as well as magnesium sulfate for low magnesium. Currently patient is fully awake and alert, but not oriented and hard of hearing. The patient was started on Levophed for his hypotension and admitted to CCU. PAST MEDICAL HISTORY: 1. Severe dementia. 2. Hard of hearing. 3. Severe protein calorie malnutrition. 4. Chronic anemia. 5. History of Clostridium difficile colitis, treated. 6. History of nonsustained ventricular tachycardia. 7. Recent urinary tract infection still on Cipro. PAST SURGICAL HISTORY: Status post defibrillator placement. CURRENT MEDICATIONS: The patient is on Tylenol p.r.n., vitamin C 500 mg daily, vitamin D 5000 units daily, vitamin B12 2000 mcg daily, Flovent inhaler p.r.n., Claritin 10 mg daily, Milk of Magnesia p.r.n., Namenda 5 mg b.i.d., metoprolol succinate 100 mg b.i.d., MiraLax 17 grams daily, Florastor 250 mg, Cipro 500 b.i.d. ALLERGIES: NSAIDs. FAMILY HISTORY: Nothing contributory. SOCIAL HISTORY: Patient is a resident of [facility]. No history of smoking. No alcohol intake. REVIEW OF SYSTEMS: Unable to obtain. The patient is hard of hearing. PHYSICAL EXAMINATION: GENERAL: The patient is alert, awake, not well oriented. VITAL SIGNS: Temperature 98, pulse 74, respiration 20, blood pressure 111/80 on Levophed. HEENT: Head is normocephalic, atraumatic. Pupils equal and reactive to light. Nasopharynx is pale and dry. Hard and soft palate, no lesions. SKIN: Skin turgor decreased. NECK: Supple. No JVD. LUNGS: Breath sounds diminished bilaterally. Percussion dull, no rales or rhonchi. CARDIAC: S1, S2 regular. ABDOMEN: Soft, no distention, no tenderness. Normal bowel sounds. NEURO: No focal deficit. LABORATORY AND X-RAY FINDINGS: CBC shows WBC 11, hemoglobin 8.9, platelets 166. Metabolic panel: Sodium 140, potassium 4.3, chloride 106, CO2 25, BUN 28 , creatinine 1.3, glucose 131, magnesium 1.5. CK-MB 1.4, troponin 0.0161. BNP was 7.6. Urinalysis showed WBCs greater than 50, leukocyte esterase large, bacteria rare. Chest x-ray reported as chronic changes with scarring versus infiltrate right lower lobe. EKG showed electronic ventricular pacemaker, that was initial EKG. Latest EKG showed wide QRS tachycardia. ASSESSMENT: 1. Questionable infiltrate versus scarring, right lower lobe, possible pneumonia, rule out sepsis. 2. Hypotension. 3. Urinary tract infection. 4. Wide QRS complex tachycardia, nonsustained. 5. Recent urinary tract infection. 6. Severe dementia. 7. Hard of hearing. 8. Chronic anemia. 9. Protein calorie malnutrition. PLAN: 1. CCU monitoring. 2. Diet: Cardiac. 3. Activity: As tolerated. 4. Hep-Lock. 5. ALLERGIES: NSAIDs. 6. Zosyn 3.375 grams IVPB q.6h. 7. Levophed infusion titrate to keep systolic above 100. 8. Cardiology consult. 9. Infectious Disease consult. 10. CODE STATUS: Patient is full code. 11. Protonix 40 mg IV piggyback daily. 12. Lovenox 40 mg subcu daily. 13. CBC, base met in the morning. MTDD
--- NOTE | 2018-07-01 16:23 | PDOC.CTH ---
Cardiology Progress Note - Subjective EP progress note: Patient seen and evaluated. No new cardiac concerns or complaints today. Unable to obtain ROS due to baseline dementia - Objective Vital Signs Temp Pulse Resp 07/01/18 15:00 98.4 F 07/01/18 11:18 98.2 F 07/01/18 07:44 98.3 F 91 18 07/01/18 07:00 98.3 F Admit Weight 138 lb Weight 138 lb 7.205 oz 06/30/18 07/01/18 07/02/18 06:59 06:59 06:59 Intake Total 60 1200 Output Total 50 150 Balance 10 1050 - Physical Examination General/Neuro: NAD Neck: carotid US brisk, no JVD present Lungs: CTA, unlabored respirations Heart: PMI normal, RRR Abdomen: NT/ND, soft - Telemetry Telemetry Rhythm: SR - Labs Result Diagrams: 07/01/18 03:25 07/01/18 03:25 Troponin/CKMB CK-MB (CK-2) 1.4 ng/mL (0-6.6) 06/30/18 23:04 Troponin I 0.173 ng/mL (< 0.028) H 07/01/18 03:15 - Assessment/Plan 1. Recurrent SVT with aberrancy/underlying left bundle branch block 2. No ventricular tachycardia Family has been offered ablation therapies but favor conservative medical therapy. Will re-offer slow pathway modification ablation to daughter when she is available. Otherwise continue with beta leilani therapy as is. Attending Addendum - Attending Addendum Date/Time: 07/01/18 1612 I personally evaluated the patient and discussed the management with Ms Moore. I agree with the History, Examination, Assessment and Plan documented above with any addition or exceptions noted below. Pt readmitted with Pneumonia, hypotension. Self terminating WCT with LBBB morphology again recurred. Will check PPM. Cannot increase BB. MAy consider amio eventually vs ablation once better if family agreeable.
[2018-07-01] MEDS: Acetaminophen 325 MG TAB PO PRN (17:15)
[2018-07-01] MEDS: traMADol HCl 50 MG TAB PO PRN (20:26)
[2018-07-02] MEDS: Piperacillin/Tazobactam 3.375 GM in Sodium Chloride 0.9% 100 ML IVPB SCH ×4 (02:10→17:31)
[2018-07-02] MEDS: Acetaminophen 325 MG TAB PO PRN ×2 (07:42→21:33)
--- NOTE | 2018-07-02 07:54 | CON ---
DATE OF CONSULTATION: 07/01/2018 HISTORY OF PRESENT ILLNESS: Mr. Bailey is an 87-year-old whom I had seen in the recent past, he was promptly readmitted to the hospital. The patient has a history of marked hearing impairment and some element of cognitive dysfunction and a history of progressive weight loss and cough, mild renal insu fficiency and a wide complex tachycardia managed with beta leilani and an AICD. The patient has exte nsive decline in his status over the past few weeks associated with hypotension, decreased oral intak e, evidence of volume depletion associated with that, placement of a gastrostomy tube has been declin ed by the daughter in the past and I saw him in June for a similar presentation and we felt that he did have evidence of some element of cardiac dysfunction. His thromboembolism workup was negativ e. He was treated for a urinary tract infection. He did have an E. coli which had a broad susceptib ility profile and we were not convinced that the urinary findings were related to the patient's clini abhishek presentation, though. This time, he is brought back by the daughter because he had been shaking and had some staring look on his face. No incontinence, no tongue biting. There was some concern wi th seizure activity versus defibrillator discharge. According to the daughter, he was able to commun icate immediately after each episode. In the emergency room, he was hypotensive with a BP 82/50 and given IV fluids and broad spectrum antimicrobial coverage. ER physician was particularly concerned w ith an infiltrate. PAST MEDICAL HISTORY: Includes cognitive dysfunction and severe hearing impairment, decreased oral i ntake with malnutrition and volume depletion, mild renal insufficiency, prior episode of Clostridium difficile colitis, nonsustained V-tach managed with AICD and beta-leilani. MEDICATIONS: Tylenol, vitamin C, vitamin D and B. Claritin, Milk of Magnesia, Namenda, metoprolol, MiraLax, Florastor. ALLERGIES: NSAIDs. FAMILY HISTORY: Noncontributory. SOCIAL HISTORY: Resident at [facility]. Never a smoker. CURRENT MEDICATIONS: Tylenol, Lovenox, Zofran, Protonix, Zosyn. PHYSICAL EXAMINATION: VITAL SIGNS: The patient has been afebrile. Other vital signs showed a blood pressure 130/65, pulse 88. O2 SAT 95-99%. SKIN: Shows an area of very faint mild erythema in the presacral region. Peripheral IV access and h e is voiding spontaneously. HEENT: He opens his eyes and will establish eye contact briefly, but he does not answer questions, p robably mostly from hearing impairment. Does not have hearing aids. Oral cavity was somewhat dry. NECK: Supple. LUNGS: Symmetric air entry. HEART: S1, S2, regular rate. AICD pocket site appears normal. ABDOMEN: Soft, nontender, not distended. EXTREMITIES: No joint inflammatory activity. Pulses are 1+ in dorsalis pedis. He seems to be able to move extremities, but cannot follow commands because of hearing impairment. LABORATORY DATA: White cell count 11.2 and 17.6, hemoglobin 8.9 and 8.9, platelets 273, 90% neutroph ils. Sodium 141, creatinine 1.39, which is stable. Lactic acid 2.8 and magnesium 1.5. Liver profil e normal. Troponin was 0.161. BNP was 720, albumin 2.7. TSH 4.8. Urinalysis greater than 50 WBCs. He has 2 sets of blood cultures and 1 set of urine culture thus far negative. The chest x-ray showed upper limits of normal cardiac mediastinal silhouette, pacemaker or AICD, substation electrician marina interstitial lung markings which are stable. ASSESSMENT: Cardiomyopathy, possible diastolic dysfunction, chronic lung changes, tremors, abnormal urinalysis, malnutrition, severe hearing impairment, hypotension. DISCUSSION: The patient has been started on broad spectrum coverage. If the cultures remain negativ e, I would recommend discontinuation of antimicrobials, focus on nutritional impairment and cardiomyo darren as the main reason for the decompensation.
[2018-07-02] MEDS: Enoxaparin Sodium 40 MG/0.4 ML SYRINGE SC SCH (08:57)
[2018-07-02] MEDS: Pantoprazole 40 MG VIAL IVP SCH (08:57)
[2018-07-02] MEDS: Amiodarone 200 MG TAB PO SCH ×2 (08:57→20:03)
[2018-07-02] MEDS: Sodium Chloride 0.45% 1,000 ML IV SCH ×3 (08:57→11:37)
--- NOTE | 2018-07-02 13:18 | PRG ---
DATE OF SERVICE: 07/02/2018 SERVICE: Pulmonary Medicine. INTERVAL HISTORY: The patient is doing great from a respiratory standpoint. He denies any current c hest pain, nausea, vomiting, shortness of breath, fevers or chills. I find him pleasantly demented. He does not know where he is, what the situation is. There were no overnight events. He has been w eaned off his Levophed. PHYSICAL EXAMINATION: VITAL SIGNS: Afebrile, pulse 61, blood pressure 99/53, respirations 17, saturation 96% on room air. GENERAL: The patient is awake and alert, in no apparent distress. LUNGS: Decent air entry with no prolonged expiratory phase or wheezing. HEART: Normal rate and regular. ABDOMEN: Soft, nontender, nondistended. Bowel sounds are positive. MUSCULOSKELETAL: No cyanosis or clubbing. There is no pitting in the bilateral lower extremities. NEUROLOGIC: Grossly nonfocal. LABORATORY DATA: Procalcitonin is 1.66. Microbiology includes negative blood cultures, urine cultur es. ASSESSMENT: 1. Shock, likely hypovolemic. 2. Septic shock, possible. 3. Protein-calorie malnutrition, severe. 4. Dementia, advanced. DISCUSSION AND PLAN: The patient is doing fine from a respiratory standpoint. He has been weaned of f his Levophed. Hemodynamically stable and he appears to be comfortable. As such, he can be transit ioned to the telemetry unit. When he lands on the floor, he will have no further requirements for in patient Pulmonary or Critical Care opinion and I will sign off. Laboratories will be repeated tomorr ow morning.
--- NOTE | 2018-07-02 14:16 | PDOC.CTH ---
Cardiology Progress Note - Subjective EP progress note: Patient seen and evaluated. Pleasantly demented. Unable to provide ROS due to dementia - Objective Vital Signs Temp 07/02/18 11:00 97.4 F L 07/02/18 07:00 97.7 F 07/02/18 04:00 97.7 F Admit Weight 138 lb Weight 138 lb 14.259 oz 07/01/18 07/02/18 07/03/18 06:59 06:59 06:59 Intake Total 60 2103 250 Output Total 50 345 200 Balance 10 1758 50 - Physical Examination General/Neuro: NAD Neck: carotid US brisk, no JVD present Lungs: CTA, unlabored respirations Heart: PMI normal, RRR Abdomen: NT/ND, soft - Telemetry Telemetry Rhythm: SR, LBBB - Labs Result Diagrams: 07/01/18 03:25 07/01/18 03:25 Troponin/CKMB CK-MB (CK-2) 1.4 ng/mL (0-6.6) 06/30/18 23:04 Troponin I 0.173 ng/mL (< 0.028) H 07/01/18 03:15 - Assessment/Plan 1. Recurrent SVT with aberrancy/underlying left bundle branch block 2. No ventricular tachycardia Attempted to speak with daughter today. Called her with no answer. She has prefered medical management, declining EPS/RFA in the past. Will re-offer slow pathway modification ablation to daughter when she is available. Poor resonse to BB hence hypotesnion. Will start amiodarone.
[2018-07-03] MEDS: Sodium Chloride 0.45% 1,000 ML IV SCH ×2 (00:35→14:58)
[2018-07-03] MEDS: Piperacillin/Tazobactam 3.375 GM in Sodium Chloride 0.9% 100 ML IVPB SCH ×4 (00:35→18:36)
[2018-07-03 03:56] LABS: #Eosinphils 0.1 thou/uL (0.0-0.7); #Lymphocytes 0.7 thou/uL (1.20-3.40); #Monocytes 0.3 thou/uL (0.11-0.59); #Neutrophils 3.2 thou/uL (1.40-6.50); %Basophils 0.1 % (0.0-1.0); %Eosinophils 2.4 % (0.0-10.0); %Lymphocytes 16.4 % (21.0-51.0); %Monocytes 7.5 % (0.0-10.0); %Neutrophils 73.5 % (42.0-75.0); Hemoglobin 7.2 g/dL (14.0-18.0); Mean Corpuscular HGB CONC 33.2 g/dL (32.0-36.0); Mean Corpuscular Hemoglobin 35.9 pg (27.0-31.0); Mean Platelet Volume 7.6 fL (7.4-10.4); Platelet Count 156 thou/uL (130-400); White Blood Cell (WBC) Count 4.4 thou/uL (4.8-10.8)
[2018-07-03 04:14] LABS: Anion Gap 10 mmol/L (10-20); BUN (Urea Nitrogen) 25 mg/dL (8.4-25.7); Calc. Creatinine Clearance 47 mL/min (70-130); Calcium 8.6 mg/dL (7.8-10.44); Carbon Dioxide 21 mmol/L (23-31); Chloride 110 mmol/L (98-107); Estimated GFR-MDRD 76; Glucose 90 mg/dL (83-110); Magnesium 1.7 mg/dL (1.6-2.6); Phosphorus 2.6 mg/dL (2.3-4.7); Potassium 3.4 mmol/L (3.5-5.1); Sodium 138 mmol/L (136-145)
[2018-07-03] MEDS: Amiodarone 200 MG TAB PO SCH ×2 (08:36→20:08)
[2018-07-03] MEDS: Enoxaparin Sodium 40 MG/0.4 ML SYRINGE SC SCH (08:36)
[2018-07-03] MEDS: Pantoprazole 40 MG VIAL IVP SCH (08:36)
[2018-07-03] MEDS ORDERED: Prevnar 13-Val Conj/PF 0.5 ML SYRINGE IM ONE (09:00)
--- NOTE | 2018-07-03 10:51 | PRG ---
DATE OF SERVICE: 07/03/2018 SERVICE: Pulmonary Medicine INTERVAL HISTORY: The patient is doing fine from a respiratory standpoint. He denies any current ch est pain, nausea, vomiting, fevers or chills. Otherwise, there has been no interval change to his co ndition. He cannot provide much in the way of additional elements of the history because of his adva nced dementia. Nursing reports no overnight events. PHYSICAL EXAMINATION: VITAL SIGNS: Afebrile, pulse 65, blood pressure 141/61, respirations 18, saturation 100% on room air . GENERAL: The patient is awake, alert, in no apparent distress. LUNGS: Decent air entry with no prolonged expiratory phase or wheezing. HEART: Normal rate, regular. ABDOMEN: Soft, nontender, nondistended. Bowel sounds are positive. MUSCULOSKELETAL: No cyanosis or clubbing. There is no pitting in the bilateral lower extremities. NEUROLOGIC: Grossly nonfocal. LABORATORY DATA: Basic metabolic profile, magnesium and phosphorus all fall essentially within the n ormal limits. Potassium, however, is 3.4. Urine culture and blood culture x2 are unremarkable. ASSESSMENT: 1. Shock, likely hypovolemic, resolved. 2. Protein calorie malnutrition, severe. 3. Dementia, advanced. 4. Hypokalemia. DISCUSSION AND PLAN: I will replace the patient's potassium today. From my perspective, he is stabl e for transition to the telemetry unit. When he leaves the IMCU, he will have no further requirement s for Pulmonary or Critical Care opinion, and I will sign off. I will provide him with a laboratory holiday in the morning.
--- NOTE | 2018-07-03 11:42 | PDOC.CTH ---
Cardiology Progress Note - Subjective EP progress note: Patient seen and evaluated. Pleasantly demented. 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 Recurrent SVT with aberrancy 2. left bundle branch block 3. Dementia 4. Failure to thrive Spoke with daughter extensively today about treatment options, the role of palliative care, and what her health goals for her father are. She states she has already made him DNI but will be speaking with her sister about making him a full DNR. We discussed the damage chest compression would cause in a man of his age and fraility. Poor response to BB with subsequent hypotension so amiodarone loading was intiated yesterday. She continues to prefer medical management and declines EPS with RFA, which is reasonable with her fathers age and declining medical condition.
[2018-07-03] MEDS: Potassium Chloride 20 MEQ TAB PO SCH ×2 (12:37→14:58)
[2018-07-03] MEDS ORDERED: Potassium Chloride 20 MEQ in Premix Bag 1 BAG IVPB SCH (15:00)
[2018-07-03] MEDS: Acetaminophen 325 MG TAB PO PRN (20:15)
[2018-07-04] MEDS: Piperacillin/Tazobactam 3.375 GM in Sodium Chloride 0.9% 100 ML IVPB SCH ×3 (00:15→11:37)
[2018-07-04] MEDS: Amiodarone 200 MG TAB PO SCH ×2 (10:09→20:27)
[2018-07-04] MEDS: Pantoprazole 40 MG VIAL IVP SCH (10:10)
[2018-07-04] MEDS: Enoxaparin Sodium 40 MG/0.4 ML SYRINGE SC SCH (10:10)
[2018-07-04] MEDS: Sodium Chloride 0.45% 1,000 ML IV SCH ×3 (11:39→20:28)
[2018-07-04 14:24] LABS: Hemoglobin 8.6 g/dL (14.0-18.0)
[2018-07-04 14:45] LABS: Anion Gap 9 mmol/L (10-20); BUN (Urea Nitrogen) 16 mg/dL (8.4-25.7); Calc. Creatinine Clearance 53 mL/min (70-130); Carbon Dioxide 23 mmol/L (23-31); Chloride 109 mmol/L (98-107); Estimated GFR-MDRD 83; Glucose 102 mg/dL (83-110); Potassium 3.4 mmol/L (3.5-5.1); Sodium 138 mmol/L (136-145)
--- NOTE | 2018-07-04 15:29 | PRG ---
DATE OF SERVICE: 07/04/2018 SERVICE: Pulmonary Medicine. INTERVAL HISTORY: The patient is doing fine from a respiratory standpoint. He is breathing comforta david. There has been no interval change to his condition. We had repeat laboratories this morning be cause he has small drop in hemoglobin which was likely artifactual. PHYSICAL EXAMINATION: VITAL SIGNS: Afebrile, pulse 70, blood pressure 110/59, respirations 18, saturation 100% on room air . GENERAL: The patient is awake, alert, no apparent distress. LUNGS: Decent air entry with no prolonged expiratory phase, wheezing, rhonchi or crackles. HEART: Normal rate, regular. ABDOMEN: Soft, nontender, nondistended. Bowel sounds are positive. MUSCULOSKELETAL: No cyanosis or clubbing. No pitting in the bilateral lower extremities. NEUROLOGIC: Grossly nonfocal. LABORATORY DATA: Hemoglobin 8.6 and stable. Potassium 3.4. Basic metabolic profile is otherwise un remarkable. ASSESSMENT: 1. Hypovolemic shock. 2. Protein calorie malnutrition, severe. 3. Dementia, advanced. 4. Debility. 5. Hypokalemia. PLAN: Once again, we will replace the potassium. The hemoglobin dropped yesterday, but this was an artifact. At this point, he has no further requirements for inpatient Pulmonary or Critical Care opi linnea and I will sign off. Please call with additional questions or concerns moving forward.
[2018-07-04] MEDS: Acetaminophen 325 MG TAB PO PRN (20:30)
[2018-07-04] MEDS: traMADol HCl 50 MG TAB PO PRN (23:19)
[2018-07-05 04:07] LABS: #Eosinphils 0.1 thou/uL (0.0-0.7); #Lymphocytes 0.6 thou/uL (1.20-3.40); #Monocytes 0.3 thou/uL (0.11-0.59); #Neutrophils 2.4 thou/uL (1.40-6.50); %Basophils 0.4 % (0.0-1.0); %Eosinophils 2.3 % (0.0-10.0); %Lymphocytes 18.4 % (21.0-51.0); %Monocytes 7.9 % (0.0-10.0); Mean Corpuscular HGB CONC 33.4 g/dL (32.0-36.0); Mean Corpuscular Hemoglobin 36.1 pg (27.0-31.0); Mean Platelet Volume 7.6 fL (7.4-10.4); Platelet Count 200 thou/uL (130-400); Red Blood Cell (RBC) Count 2.21 mill/uL (4.70-6.10); White Blood Cell (WBC) Count 3.3 thou/uL (4.8-10.8)
[2018-07-05 04:17] LABS: Anion Gap 11 mmol/L (10-20); BUN (Urea Nitrogen) 15 mg/dL (8.4-25.7); Calc. Creatinine Clearance 53 mL/min (70-130); Calcium 8.9 mg/dL (7.8-10.44); Carbon Dioxide 21 mmol/L (23-31); Chloride 111 mmol/L (98-107); Estimated GFR-MDRD 84; Glucose 93 mg/dL (83-110); Potassium 4.2 mmol/L (3.5-5.1); Sodium 139 mmol/L (136-145)
[2018-07-05] MEDS: Amiodarone 200 MG TAB PO SCH ×2 (08:28→21:05)
[2018-07-05] MEDS: Enoxaparin Sodium 40 MG/0.4 ML SYRINGE SC SCH (08:28)
[2018-07-05] MEDS ORDERED: Polyethylene Glycol 3350 17 GM Packet PO PRN (15:04)
[2018-07-05] MEDS ORDERED: Acetaminophen 325 MG TAB PO PRN (15:05)
[2018-07-05] MEDS ORDERED: Mometasone Furoate 120 PUFF 220 MCG INH PRN (15:06)
[2018-07-05] MEDS ORDERED: Milk Of Magnesia 30 ML UDCUP PO PRN (15:07)
--- NOTE | 2018-07-06 08:23 | EKG ---
Test Reason : STAT Blood Pressure : / mmHG Vent. Rate : 151 BPM Atrial Rate : 147 BPM P-R Int : 000 ms QRS Dur : 126 ms QT Int : 360 ms P-R-T Axes : 000 001 207 degrees QTc Int : 570 ms Wide QRS tachycardia Left bundle branch block Abnormal ECG When compared with ECG of 23-JUN-2018 09:29, Wide QRS tachycardia has replaced Wide QRS rhythm Vent. rate has increased BY [address] Gareth FOX ([id number]) on 07/06/2018 8:23:26 AM Referred By: [place] Confirmed By:DR. Gareth FOX
[2018-07-06] MEDS: Cyanocobalamin (Vitamin B-12) 1,000 MCG TAB PO SCH (09:29)
[2018-07-06] MEDS: Loratadine 10 MG TAB PO SCH (09:29)
[2018-07-06] MEDS: Ascorbic Acid 500 mg Chewable Tablet PO SCH (09:29)
[2018-07-06] MEDS: Enoxaparin Sodium 40 MG/0.4 ML SYRINGE SC SCH (09:29)
[2018-07-06] MEDS: Saccharomyces boulardii 250 MG CAP PO SCH (09:29)
[2018-07-06] MEDS: Amiodarone 200 MG TAB PO SCH ×2 (09:33→21:02)
--- NOTE | 2018-07-06 12:16 | PQF ---
CLINICAL DOCUMENTATION IMPROVEMENT CLARIFICATION FORM: ICD-10 Updated PLEASE DO AN ADDENDUM TO THE PROGRESS NOTE WITH ANY DOCUMENTATION UPDATES OR ADDITIONS AND CARRY THROUGH TO DC SUMMARY. THANK YOU. DATE: 07/06/18 ATTN: Dr. Lunsford Please exercise your independent, professional judgment in responding to the clarification form. Clinical indicators are provided on the bottom of this form for your review Please check appropriate box(s) to clarify if the following diagnosis has been ruled in or ruled out: POSSIBLE PNEUMONIA, RULE OUT SEPSIS. [ ] Ruled in diagnosis [ ] Continue to treat [ ] Resolved [y ] Ruled out diagnosis [ ] Cannot rule out diagnosis [ ] Other diagnosis [ ] Unable to determine In addition, please specify: Present on Admission (POA): [ y ] Yes [ ] No [ ] Unable to determine For continuity of documentation, please document condition throughout progress notes and discharge summary. Thank You. CLINICAL INDICATORS - SIGNS / SYMPTOMS / LABS H&P 07/01: HYPOTENSIVE IN THE ER, BP WAS 82/50 QUESTIONABLE INFILTRATE VS SCARRING, RLL POSSIBLE PNEUMONIA, RULE OUT SEPSIS. PULMONOLOGY PN 07/02: SHOCK, LIKELY HYPOVOLEMIC. SEPTIC SHOCK, POSSIBLE PULMONOLOGY PN 07/03: SHOCK, LIKELY HYPOVOLEMIC, RESOLVED. RISKS: H&P 07/01: 87 YR OLD FROM [facility]. DISCHARGED FROM HOSPITAL AFTER BEING TREATED FOR UTI. HX OF DEMENTIA; SEVERE PROTEIN CALORIE MALNUTRITION. NONSUSTAINED VT TREATMENT: H&P: CCU MONITORING. ZOSYN 3.375 GM IV Q 6 HRS. LEVOPHED INFUSION TITRATE TO KEEP SBP ABOVE 100 CARDIOLOGY CONSULT ID CONSULT Thank you, Hetal (This form is maintained as a part of the permanent medical record) 2015 [employer]. All Rights Reserved Hetal Patton RN, BSN [email or web address] Office: [phone] MARY
[2018-07-06 14:22] VITALS: BMI 19.3
[2018-07-06] MEDS: Acetaminophen 325 MG TAB PO PRN (21:05)
[2018-07-07] MEDS: Enoxaparin Sodium 40 MG/0.4 ML SYRINGE SC SCH (09:10)
[2018-07-07] MEDS: Loratadine 10 MG TAB PO SCH (09:10)
[2018-07-07] MEDS: Saccharomyces boulardii 250 MG CAP PO SCH (09:10)
[2018-07-07] MEDS: Cyanocobalamin (Vitamin B-12) 1,000 MCG TAB PO SCH (09:11)
[2018-07-07] MEDS: Ascorbic Acid 500 mg Chewable Tablet PO SCH (09:11)
[2018-07-07] MEDS: Amiodarone 200 MG TAB PO SCH (09:11)
[2018-07-07 10:15] VITALS: BP 102/61; TEMP 97.8
--- NOTE | 2018-07-08 13:04 | DIS ---
DATE OF ADMISSION: 07/01/2018 DATE OF DISCHARGE: 07/07/2018 ADMITTING DIAGNOSES: 1. Questionable infiltrate versus scarring, right lower lobe, possible pneumonia, rule out sepsis. 2. Hypertension. 3. Urinary tract infection, wide QRS complex tachycardia, nonsustained given the recent urinary tract infection and severe dementia. 4. Hard of hearing. FINAL DIAGNOSES: 1. Hypovolemic shock. 2. Acute kidney injury. 3. Protein-calorie malnutrition, severe. 4. Severe dementia. 5. Hypokalemia, corrected. 6. Severe debility. 7. Hard of hearing. 8. Urinary tract infection, wide QRS complex tachycardia, nonsustained. 9. Chronic anemia. BRIEF SUMMARY OF HOSPITAL COURSE: Mr. Bailey is an 87-year-old male admitted because of hypotension. The patient was thought to having septic shock initially, thought of a lung infiltrate. On chest x-ray, there was no clear lung infiltrate.showed chronic changes.pt was dehydrated with acute kidney injury. He was in hypovolemic shock. His BUN was 28 and eventually came up to 15, improved. Creatinine also came up from 1.39 to 0.86. The patient was seen by Dr. Galarza, Pulmonology, while he was in the CCU, suggested fluids and antibiotics. The patient was also seen by Dr. Lynn for wide complex tachycardia and his metoprolol was stopped because of hypotension. He was started on amiodarone and he was continued on amiodarone 200 b.i.d. The patient became more stable. His blood pressure remained stable. He is not on Levophed anymore. He was transferred to ICU. His dehydration was corrected , but the patient is still not eating well. He only drinks and chews sometimes and his daughter is aware of this situation. His code status was discussed with the family, finally patient's family agreed for him to make him DNI and also chemical code only. The patient is being discharged back to [facility]. At the time of discharge, he was stable. Vital signs stable. Lungs are clear to auscultation. Abdomen was soft, nontender, bowel sounds present. DISCHARGE MEDICATIONS: Include Flovent Diskus 50 mcg daily, vitamin B12 1000 mcg daily, vitamin D 5000 units daily, vitamin C 500 mg, Tylenol p.r.n., Namenda 5 mg b.i.d., Florastor 250 daily, MiraLax 17 grams daily, Milk of magnesia p.r.n., Claritin 10 mg daily, amiodarone 200 mg b.i.d. for one month and then 200 mg daily, and tramadol 50 q.6 hours p.r.n. FOLLOWUP: The patient will be followed up at in [facility]
--- NOTE | 2018-07-11 11:15 | EKG ---
Test Reason : Blood Pressure : / mmHG Vent. Rate : 151 BPM Atrial Rate : 110 BPM P-R Int : 000 ms QRS Dur : 126 ms QT Int : 358 ms P-R-T Axes : 000 003 205 degrees QTc Int : 567 ms Wide QRS tachycardia Left bundle branch block Abnormal ECG Confirmed by SURY GARCIA M.D. ([id number]), material expeditor OLGA MCQUEEN ([id number]) on 07/11/2018 11:15:29 AM Referred By: Confirmed By:SURY GARCIA M.D.
[2018-07-16] MEDS ORDERED: Amiodarone 200 MG TAB PO SCH (09:00)
== END 2018-07-07 13:50 | DRG 308 ==
LOC: ERS 21:35 → CCU 07-01 00:21 → IMCU/EMU 07-02 15:58 → 2NO 07-04 11:53 → T4-A 07-04 19:36
PROVIDERS: ADMIT Internal Medicine; ATTEND Internal Medicine
DX: I47.1 Supraventricular tachycardia (principal); E43 Unspecified severe protein-calorie malnutrition; R57.1 Hypovolemic shock; N39.0 Urinary tract infection, site not specified; N17.9 Acute kidney failure, unspecified; I44.7 Left bundle-branch block, unspecified; F03.90 Unspecified dementia, unspecified severity, without behavioral disturbance, psychotic disturbance, mood disturbance, and anxiety; R62.7 Adult failure to thrive; Z66 Do not resuscitate; Z95.810 Presence of automatic (implantable) cardiac defibrillator; H91.90 Unspecified hearing loss, unspecified ear; Z88.8 Allergy status to other drugs, medicaments and biological substances; I95.9 Hypotension, unspecified; R25.1 Tremor, unspecified; D64.9 Anemia, unspecified; R53.81 Other malaise; E87.6 Hypokalemia; I10 Essential (primary) hypertension; R41.0 Disorientation, unspecified
CPT/HCPCS: 36415; 36556; 70450; 71045; 80048; 80053; 81003; 81015; 82553; 83605; 83690; 83735; 83880; 84100; 84145; 84443; 84484; 85014; 85018; 85025; 87040; 87086; 87324; 87449; 93005; 93010; 96361; 96365; 96366; 96367; 96368; A4216; C9113; J1650; J2405; J2543; J3370; J3475; J3480; J7050

== ENCOUNTER 2018-07-21 18:07 | Inpatient (IN) | payer MEDICARE, BC ==
[2018-07-21] MEDS ORDERED: Aspirin 325 MG TAB ONE (19:34)
[2018-07-21 19:47] LABS: #Lymphocytes 0.4 thou/uL (1.20-3.40); #Monocytes 0.6 thou/uL (0.11-0.59); #Neutrophils 8.9 thou/uL (1.40-6.50); %Eosinophils 0.2 % (0.0-10.0); %Lymphocytes 3.8 % (21.0-51.0); %Monocytes 5.8 % (0.0-10.0); %Neutrophils 90.2 % (42.0-75.0); Hemoglobin 10.2 g/dL (14.0-18.0); Mean Corpuscular Hemoglobin 35.9 pg (27.0-31.0); Platelet Count 200 thou/uL (130-400); RBC Distribution Width 14.9 % (11.5-14.5); Red Blood Cell (RBC) Count 2.83 mill/uL (4.70-6.10); White Blood Cell (WBC) Count 9.9 thou/uL (4.8-10.8)
--- NOTE | 2018-07-21 20:03 | RAD ---
ONE VIEW CHEST: 07/21/18 HISTORY: Sepsis. COMPARISON: 06/30/18. FINDINGS: Atherosclerosis and elongation of the aorta. Normal cardiac silhouette. Pulmonary vessels and hilum a re normal. Costophrenic angles are clear. Hyperinflation, without consolidation or mass. There is no pneumothorax. There is diffuse bone demineralization. Multiple posterior right rib fractures are note d. IMPRESSION: 1. No acute cardiopulmonary process. 2. Multiple posterior right rib fractures, age indeterminate. POS: PPP
[2018-07-21 20:07] LABS: ALT (SGPT) 9 U/L (8-55); AST (SGOT) 19 U/L (5-34); Albumin 3.3 g/dL (3.4-4.8); Alkaline Phosphatase 69 U/L (40-150); Anion Gap 18 mmol/L (10-20); BUN (Urea Nitrogen) 41 mg/dL (8.4-25.7); Bilirubin, Total 0.9 mg/dL (0.2-1.2); Calc. Creatinine Clearance 0 mL/min (70-130); Carbon Dioxide 23 mmol/L (23-31); Chloride 106 mmol/L (98-107); Estimated GFR-MDRD 30; Glucose 114 mg/dL (83-110); Lipase 28 U/L (8-78); Potassium 3.5 mmol/L (3.5-5.1); Protein, Total 6.3 g/dL (5.8-8.1); Sodium 143 mmol/L (136-145)
[2018-07-21 20:10] LABS: CKMB 6.1 ng/mL (0-6.6)
[2018-07-21 20:13] LABS: Troponin I 0.423 ng/mL (< 0.028)
[2018-07-21] MEDS ORDERED: Vancomycin HCl 25 MG/ML Oral PO SCH (21:45)
[2018-07-21 23:17] LABS: Critical Call Chem Troponin I RESULT DECREASING; Troponin I 0.388 ng/mL (< 0.028)
[2018-07-22 02:29] LABS: Critical Call Chem Troponin I RESULT DECREASING; Troponin I 0.375 ng/mL (< 0.028)
[2018-07-22] MEDS ORDERED: traMADol HCl 50 MG TAB PO PRN (09:41)
[2018-07-22] MEDS ORDERED: Acetaminophen 325 MG TAB PO PRN (09:41)
[2018-07-22] MEDS: Sodium Chloride 0.45% 1,000 ML IV SCH (10:29)
[2018-07-22] MEDS: Vancomycin HCl 25 MG/ML Oral PO SCH ×2 (16:02→17:19)
[2018-07-22] MEDS: Potassium Chloride 20 MEQ TAB PO SCH ×2 (19:31→21:16)
[2018-07-22] MEDS: MOMETASONE FUROATE 220 MCG INH SCH (19:49)
[2018-07-22] MEDS: Amiodarone 200 MG TAB PO SCH (21:16)
[2018-07-23] MEDS: Vancomycin HCl 25 MG/ML Oral PO SCH ×5 (01:10→23:45)
[2018-07-23] MEDS: Sodium Chloride 0.45% 1,000 ML IV SCH ×2 (01:12→14:15)
--- NOTE | 2018-07-23 02:23 | HP ---
DATE OF ADMISSION: 07/21/2018 REASON FOR ADMISSION AND CHIEF COMPLAINT: Diarrhea, abdominal pain. HISTORY OF PRESENT ILLNESS: Mr. Bailey is an 87-year-old male with past medical history of severe protein-calorie malnutrition, dementia with some wide-complex tachycardia, came because of diarrhea. The patient has been having loose watery stools few times a day for the last couple of days. The patient was treated for C. difficile in the past. Recently, his was also admitted and she also had C. difficile colitis, was again discharged to the [facility], where both of them stay. The patient has not been eating well at all. Because of the persistent diarrhea, abdominal pain, not eating, the patient was sent to the hospital. In the ER, patient was evaluated, found to have C. difficile colitis and acute kidney injury. He was given a dose of vancomycin and started on IV fluids and admitted for further evaluation and management. The patient is chemical code only as per the family. PAST MEDICAL HISTORY: 1. Severe dementia. 2. Severe protein-calorie malnutrition. 3. Hard of hearing. 4. Chronic anemia. 5. History of C. difficile colitis, treated. 6. History of nonsustained ventricular tachycardia. 7. Recent UTI. PAST SURGICAL HISTORY: Status post defibrillator placement. CURRENT MEDICATIONS: The patient is on Tylenol p.r.n., vitamin C 500 mg daily, vitamin D 5000 units daily, vitamin B12 daily, Proventil inhaler p.r.n., Claritin daily, Namenda 5 mg b.i.d., amiodarone 200 mg b.i.d., MiraLax 17 grams daily, Florastor 250 mg daily. FAMILY HISTORY: Nothing of interest. SOCIAL HISTORY: The patient is at [facility]. No history of smoking. No history of alcohol intake. REVIEW OF SYSTEMS: Unable to obtain, patient has dementia and not able to communicate well. PHYSICAL EXAMINATION: GENERAL: The patient is alert, awake, not oriented at all. VITAL SIGNS: Temperature 98, pulse 60, respirations 20, blood pressure 120/60. HEENT: Head is normocephalic, atraumatic. Pupils equal and reactive to light. Nasopharynx is pale and dry. Hard and soft palate, no lesions seen. SKIN: Skin turgor decreased. NECK: Supple. No JVD. LUNGS: Bilateral air entry present, no rales, no rhonchi. HEART: S1, S2 regular, ABDOMEN: Soft, no distention, tender diffusely in the left side. No guarding, rigidity. Bowel sounds present. RECTAL: Deferred. CENTRAL NERVOUS SYSTEM: No focal deficit. LABORATORY AND X-RAY FINDINGS: CBC shows WBC 9.9, hemoglobin 10, hematocrit 30 , platelets 200. Metabolic panel: Sodium 143, potassium 3.6, chloride 106, CO2 of 20, urea nitrogen 41, creatinine 2, glucose 114. CK-MB 6, troponin I 0.423. BNP 1316. Stool test for C. difficile positive for C. diff. Chest x- ray, no acute cardiopulmonary changes seen. EKG showed paced rhythm. ASSESSMENT: 1. Clostridium difficile colitis, recurrent. 2. Diarrhea secondary to #1. 3. Acute kidney injury with hypotension. 4. Severe protein-calorie malnutrition. 5. Severe dementia. 6. Elevated troponin I, rule out myocardial infarction. 7. Hard of hearing. 8. History of nonsustained ventricular tachycardia. PLAN: 1. Vital signs q.4 hours. 2. Activity: As tolerated. 3. Allergies: NKDA. 4. IV fluids normal saline 70 mL per hour. 5. Diet: Regular. 6. Vancomycin 125 mg p.o. q.i.d. 7. Continue jail medication. 8. GI consult. MARY
[2018-07-23 05:43] LABS: #Eosinphils 0.1 thou/uL (0.0-0.7); #Lymphocytes 0.7 thou/uL (1.20-3.40); #Monocytes 0.6 thou/uL (0.11-0.59); #Neutrophils 7.2 thou/uL (1.40-6.50); %Basophils 0.1 % (0.0-1.0); %Eosinophils 0.6 % (0.0-10.0); %Monocytes 6.6 % (0.0-10.0); %Neutrophils 84.7 % (42.0-75.0); Hemoglobin 8.5 g/dL (14.0-18.0); Mean Corpuscular HGB CONC 32.6 g/dL (32.0-36.0); Mean Platelet Volume 8.8 fL (7.4-10.4); Platelet Count 162 thou/uL (130-400); RBC Distribution Width 14.9 % (11.5-14.5); Red Blood Cell (RBC) Count 2.36 mill/uL (4.70-6.10); White Blood Cell (WBC) Count 8.5 thou/uL (4.8-10.8)
[2018-07-23 05:48] LABS: Anion Gap 9 mmol/L (10-20); BUN (Urea Nitrogen) 32 mg/dL (8.4-25.7); Calc. Creatinine Clearance 29 mL/min (70-130); Calcium 8.7 mg/dL (7.8-10.44); Carbon Dioxide 23 mmol/L (23-31); Chloride 109 mmol/L (98-107); Estimated GFR-MDRD 49; Glucose 103 mg/dL (83-110); Potassium 3.3 mmol/L (3.5-5.1); Sodium 138 mmol/L (136-145)
--- NOTE | 2018-07-23 07:39 | PRG ---
DATE OF SERVICE: 07/23/2018 SUBJECTIVE: The patient is awake and alert, unable to communicate effectively because of his hard o f hearing and dementia. There is no indication of abdominal pain, nausea, or vomiting. He had 2 epi sodes of loose bowels over the night order selector, last 12 hours. PHYSICAL EXAMINATION: VITAL SIGNS: Temperature is 97.8, blood pressure 107/55, pulse of 60. GENERAL: He is alert. He does not appear in any distress. HEENT: Shows anicteric sclerae. CARDIOVASCULAR: Shows normal S1, S2 regular rate and rhythm. CHEST: Shows normal breath sounds, poor excursion. ABDOMEN: Flat and soft. No tenderness, no distention. He has active bowel sounds. EXTREMITIES: Shows no edema. LABORATORY DATA: WBC is 8.5, hemoglobin 8.5, platelet count of 162. Electrolytes within normal rang e. Potassium 3.3, creatinine 1.38, BUN of 49. ASSESSMENT: 1. Clostridium difficile colitis, stool output is significantly less. Appears to be responding well to vancomycin p.o. 2. Dehydration with prerenal azotemia, creatinine trending down. 3. Dementia. 4. Malnutrition. RECOMMENDATION: 1. Continue with IV hydration. 2. Continue vancomycin p.o. 125 mg q.i.d. 3. Overall, supportive care. 4. Dr. Saez will cover for GI Service starting tomorrow.
[2018-07-23] MEDS: Saccharomyces boulardii 250 MG CAP PO SCH (09:20)
[2018-07-23] MEDS: Amiodarone 200 MG TAB PO SCH ×2 (09:20→20:31)
[2018-07-23] MEDS: Ascorbic Acid 500 mg Chewable Tablet PO SCH (09:20)
[2018-07-23] MEDS: Loratadine 10 MG TAB PO SCH (09:20)
[2018-07-23] MEDS: Cyanocobalamin (Vitamin B-12) 1,000 MCG TAB PO SCH (09:21)
[2018-07-23] MEDS: Potassium Chloride 20 MEQ TAB PO SCH ×2 (17:29→20:30)
[2018-07-23] MEDS: MOMETASONE FUROATE 220 MCG INH SCH (18:53)
[2018-07-24] MEDS: Potassium Chloride 20 MEQ TAB PO SCH (01:23)
[2018-07-24] MEDS: Vancomycin HCl 25 MG/ML Oral PO SCH ×4 (05:02→23:41)
[2018-07-24] MEDS: Sodium Chloride 0.45% 1,000 ML IV SCH ×2 (05:03→18:58)
[2018-07-24 05:37] LABS: #Eosinphils 0.1 thou/uL (0.0-0.7); #Lymphocytes 1.2 thou/uL (1.20-3.40); #Monocytes 0.6 thou/uL (0.11-0.59); #Neutrophils 7.4 thou/uL (1.40-6.50); %Eosinophils 1.4 % (0.0-10.0); %Lymphocytes 12.9 % (21.0-51.0); %Monocytes 6.7 % (0.0-10.0); Hemoglobin 9.3 g/dL (14.0-18.0); Mean Corpuscular HGB CONC 32.1 g/dL (32.0-36.0); Mean Corpuscular Hemoglobin 35.5 pg (27.0-31.0); Mean Platelet Volume 8.2 fL (7.4-10.4); Platelet Count 159 thou/uL (130-400); RBC Distribution Width 14.8 % (11.5-14.5); Red Blood Cell (RBC) Count 2.62 mill/uL (4.70-6.10); White Blood Cell (WBC) Count 9.4 thou/uL (4.8-10.8)
[2018-07-24 05:42] LABS: Anion Gap 13 mmol/L (10-20); BUN (Urea Nitrogen) 25 mg/dL (8.4-25.7); Calc. Creatinine Clearance 38 mL/min (70-130); Calcium 8.8 mg/dL (7.8-10.44); Carbon Dioxide 21 mmol/L (23-31); Chloride 108 mmol/L (98-107); Estimated GFR-MDRD 64; Glucose 93 mg/dL (83-110); Potassium 3.6 mmol/L (3.5-5.1); Sodium 138 mmol/L (136-145)
[2018-07-24 05:50] LABS: Troponin I 0.213 ng/mL (< 0.028)
[2018-07-24] MEDS: Cyanocobalamin (Vitamin B-12) 1,000 MCG TAB PO SCH (08:59)
[2018-07-24] MEDS: Amiodarone 200 MG TAB PO SCH ×2 (09:00→21:25)
[2018-07-24] MEDS: Loratadine 10 MG TAB PO SCH (09:00)
[2018-07-24] MEDS: Ascorbic Acid 500 mg Chewable Tablet PO SCH (09:00)
[2018-07-24] MEDS: Saccharomyces boulardii 250 MG CAP PO SCH (12:35)
[2018-07-24 13:05] VITALS: BMI 17.2
--- NOTE | 2018-07-24 16:03 | PRG ---
DATE OF SERVICE: 07/24/2018 SUBJECTIVE: Mr. Bailey is not significantly verbally interactive. Nursing reports he has had no bow el movements today. He is awake and responsive and has no acute complaints. PHYSICAL EXAMINATION: VITAL SIGNS: Temperature 98.3, pulse 60, blood pressure 121/70. LUNGS: Clear to auscultation bilaterally. HEART: Regular rate and rhythm. ABDOMEN: Soft, nontender, nondistended. Bowel sounds are present. EXTREMITIES: No lower extremity edema. IMPRESSION: Clostridium difficile colitis, improved clinically. The patient's appetite has been poo r for months, but this is unchanged from his baseline currently. RECOMMENDATIONS: 1. Complete a 14-day course of vancomycin 125 mg 4 times daily. 2. I will sign off for now. Please call if GI can be of assistance.
[2018-07-24 18:46] LABS: Troponin I 0.186 ng/mL (< 0.028)
[2018-07-24] MEDS: MOMETASONE FUROATE 220 MCG INH SCH (19:53)
[2018-07-25] MEDS: Sodium Chloride 0.45% 1,000 ML IV SCH ×2 (00:42→17:07)
[2018-07-25] MEDS: Vancomycin HCl 25 MG/ML Oral PO SCH ×3 (05:03→17:07)
[2018-07-25 05:24] LABS: Troponin I 0.168 ng/mL (< 0.028)
[2018-07-25] MEDS: Ascorbic Acid 500 mg Chewable Tablet PO SCH (09:14)
[2018-07-25] MEDS: Cyanocobalamin (Vitamin B-12) 1,000 MCG TAB PO SCH (09:14)
[2018-07-25] MEDS: Amiodarone 200 MG TAB PO SCH (09:15)
[2018-07-25] MEDS: Loratadine 10 MG TAB PO SCH (09:15)
[2018-07-25] MEDS: Saccharomyces boulardii 250 MG CAP PO SCH (09:16)
--- NOTE | 2018-07-25 17:06 | EKG ---
Test Reason : Blood Pressure : / mmHG Vent. Rate : 065 BPM Atrial Rate : 065 BPM P-R Int : 182 ms QRS Dur : 144 ms QT Int : 600 ms P-R-T Axes : 090 045 250 degrees QTc Int : 624 ms Electronic ventricular pacemaker Confirmed by CATRACHITA HARO MD ([id number]), marketing editor SHANE CANTU ([id number]) on 07/25/2018 5:05:21 PM Referred By: Confirmed By:CATRACHITA HARO MD
[2018-07-25] MEDS: MOMETASONE FUROATE 220 MCG INH SCH (18:50)
[2018-07-26] MEDS: Vancomycin HCl 25 MG/ML Oral PO SCH ×5 (00:18→23:51)
[2018-07-26 04:39] LABS: #Eosinphils 0.1 thou/uL (0.0-0.7); #Lymphocytes 0.8 thou/uL (1.20-3.40); #Monocytes 0.4 thou/uL (0.11-0.59); #Neutrophils 4.4 thou/uL (1.40-6.50); %Basophils 0.2 % (0.0-1.0); %Eosinophils 1.3 % (0.0-10.0); %Lymphocytes 14.7 % (21.0-51.0); %Monocytes 6.1 % (0.0-10.0); %Neutrophils 77.7 % (42.0-75.0); Hemoglobin 8.7 g/dL (14.0-18.0); Mean Corpuscular HGB CONC 32.6 g/dL (32.0-36.0); Mean Corpuscular Hemoglobin 35.4 pg (27.0-31.0); Mean Platelet Volume 8.2 fL (7.4-10.4); Platelet Count 153 thou/uL (130-400); RBC Distribution Width 14.6 % (11.5-14.5); Red Blood Cell (RBC) Count 2.45 mill/uL (4.70-6.10); White Blood Cell (WBC) Count 5.7 thou/uL (4.8-10.8)
[2018-07-26 04:48] LABS: Anion Gap 11 mmol/L (10-20); BUN (Urea Nitrogen) 22 mg/dL (8.4-25.7); Calc. Creatinine Clearance 39 mL/min (70-130); Calcium 9.1 mg/dL (7.8-10.44); Carbon Dioxide 23 mmol/L (23-31); Chloride 106 mmol/L (98-107); Estimated GFR-MDRD 66; Glucose 91 mg/dL (83-110); Potassium 3.5 mmol/L (3.5-5.1); Sodium 136 mmol/L (136-145)
[2018-07-26] MEDS: Saccharomyces boulardii 250 MG CAP PO SCH (08:05)
[2018-07-26] MEDS: Ascorbic Acid 500 mg Chewable Tablet PO SCH (08:05)
[2018-07-26] MEDS: Loratadine 10 MG TAB PO SCH (08:06)
[2018-07-26] MEDS: Cyanocobalamin (Vitamin B-12) 1,000 MCG TAB PO SCH (08:06)
[2018-07-26] MEDS: Amiodarone 200 MG TAB PO SCH (08:07)
[2018-07-26] MEDS: Potassium Chloride 20 MEQ TAB PO SCH ×2 (13:35→17:25)
[2018-07-26] MEDS: MOMETASONE FUROATE 220 MCG INH SCH (18:09)
[2018-07-26 20:30] VITALS: TEMP 97.7
[2018-07-27] MEDS: Vancomycin HCl 25 MG/ML Oral PO SCH ×2 (05:41→11:34)
[2018-07-27 07:42] VITALS: BP 119/61
[2018-07-27] MEDS: Amiodarone 200 MG TAB PO SCH (07:53)
[2018-07-27] MEDS: Loratadine 10 MG TAB PO SCH (07:53)
[2018-07-27] MEDS: Cyanocobalamin (Vitamin B-12) 1,000 MCG TAB PO SCH (07:53)
[2018-07-27] MEDS: Saccharomyces boulardii 250 MG CAP PO SCH (07:53)
[2018-07-27] MEDS: Ascorbic Acid 500 mg Chewable Tablet PO SCH (07:53)
--- NOTE | 2018-07-28 09:40 | DIS ---
DATE OF ADMISSION: 07/21/2018 DATE OF DISCHARGE: 07/27/2018 ADMITTING DIAGNOSES: 1. Clostridium difficile colitis, recurrent. 2. Diarrhea secondary to #1. 3. Acute kidney injury with hypotension and severe protein-calorie malnutrition. 4. Severe dementia. 5. Hard of hearing. 6. Elevated troponin I, rule out myocardial infarction. 7. History of nonsustained ventricular tachycardia. FINAL DIAGNOSES: 1. Clostridium difficile colitis, improving on vancomycin. 2. Diarrhea secondary to #1, resolved. 3. Acute kidney injury, improved. 4. Hypotension, improved. 5. Severe protein-calorie malnutrition. 6. Severe dementia. 7. Elevated troponin I. 8. Hard of hearing. 9. History of nonsustained ventricular tachycardia. BRIEF SUMMARY OF HOSPITAL COURSE: Mr. Bailey is an 87-year-old male admitted because of di arrhea, weakness, hypotension, and acute kidney injury. Patient was found to have C. difficile colit is, started on p.o. vancomycin, and continued to have diarrhea for the next few days, but after few d ays, his diarrhea slowly improved. GI consulted and patient was seen by Dr. So. He felt patient h as Clostridium difficile colitis, but responding to vancomycin and suggested to continue fluids and v ancomycin. Finally, diarrhea completely resolved. His acute kidney injury, improved. His BUN came down from 41 to 22. His creatinine came down from 2.1 to 1.06, but patient is still not eating much, he takes only Ensure sometimes. His initial troponin I was high at 0.423, but it came down graduall y to 0.16. The patient did not have any chest pain and there are no EKG changes. His hemoglobin sta yed around 8.5 to 8.7 grams; so in view of improvement of his diarrhea and hypotension and improvemen t of acute kidney injury, he is being transferred back to [facility]. Family is quite aware of patient not eating, and they did not want PEG tube feeding. At the time of discharge, he was stable . His vital signs were stable. Lungs clear. Heart sounds regular. Abdomen is soft, no distention. Bowel sounds present. DISCHARGE MEDICATIONS: Include Namenda 5 mg daily, Flovent Diskus 50 mcg daily, vitamin B12 of 1000 mcg daily, vitamin D 5000 units daily, vitamin C 500 mg daily, Tylenol p.r.n., Florastor 250 mg daily , MiraLax 17 grams daily p.r.n., Claritin 10 mg daily, tramadol 50 q.i.d. p.r.n., amiodarone 200 mg d aily, vancomycin 125 mg 4 times daily q.6 hours for 10 days.
--- NOTE | 2018-07-28 10:02 | CON ---
DATE OF CONSULTATION: 07/22/2018 REASON FOR CONSULTATION: Diarrhea. HISTORY: Mr. Bailey is an 87-year-old male who is a resident at [facility] who was brought to the hospital for having new onset of severe diarrhea. The patient is hard of hearing and exact histo ry is difficult to be obtained. Reportedly, he did not have any nausea, vomiting or any indication o f abdominal pain. His diarrhea has been described as loose and watery without any blood. So far tod ay, he has had 4 episodes of loose stool according to the house staff. The patient does not have any fever or chills. The patient has been admitted to the hospital twice in the last 30 days. About a month ago, he did have an Escherichia coli urinary tract infection that was treated with antibiotics. The patient was last admitted to the hospital 2 weeks ago, was discharged a week ago with hypovolem ic shock that resulted in a kidney injury. He also had a QRS wide complex tachycardia that was start ed on amiodarone. Further history was not obtainable. PAST MEDICAL HISTORY: 1. Previous history of Clostridium difficile. 2. Cardiomyopathy, status post defibrillator placement. 3. Severe dementia. 4. Chronic anemia. ALLERGIES: None. MEDICATIONS: Include tramadol, Florastor, MiraLax, Namenda, Claritin, Flovent Diskus, vitamin D and vitamin B12, amiodarone, and other p.r.n. medication. SOCIAL HISTORY: The patient is a resident at [facility]. No known tobacco or alcohol usage. FAMILY HISTORY: Not obtainable. REVIEW OF SYSTEMS: Not obtainable. PHYSICAL EXAMINATION: VITAL SIGNS: Temperature is 96.4, blood pressure 146/70, pulse of 68. GENERAL: He is alert and awake, but not communicative. HEENT: Shows anicteric sclerae There is bilateral temporal wasting. NECK: Supple. HEART: Normal S1, S2, regular rate and rhythm with 2/6 systolic murmur. CHEST: Normal breath sounds. ABDOMEN: Soft, nontender, no distention. He has active bowel sounds. EXTREMITIES: No edema. LABORATORY DATA: WBC is 9.9, hemoglobin 10.2, platelet count of 200. Sodium 143, potassium 3.5, chl oride 106, CO2 23, creatinine 2.1. Troponin elevated to 0.375. LFTs are normal. Stool C. difficile positive for antigen and toxin. IMPRESSION: 1. Acute Clostridium difficile colitis, likely precipitant from recent treatment for a urinary tract infection. Currently, the patient is without any signs of toxicity. Abdominal exam is benign. He does not have any fever or any significant leukocytosis. 2. Advanced age with dementia. 3. Renal insufficiency, likely from dehydration from diarrhea. RECOMMENDATIONS: 1. Continue with vancomycin 125 mg q.i.d. as ordered. 2. No indication to add IV metronidazole at the present time. 3. Continue IV hydration to offset fluid loss from diarrhea. 4. We will follow.
== END 2018-07-27 13:51 | disposition home or self-care (01) | DRG 371 ==
LOC: ERS 18:07 → 2NO 21:15 → T4-B 07-24 23:01
PROVIDERS: ADMIT Internal Medicine; ATTEND Internal Medicine
DX: A04.71 Enterocolitis due to Clostridium difficile, recurrent (principal); G93.41 Metabolic encephalopathy; E43 Unspecified severe protein-calorie malnutrition; Z68.1 Body mass index [BMI] 19.9 or less, adult; N17.9 Acute kidney failure, unspecified; H91.90 Unspecified hearing loss, unspecified ear; Z79.899 Other long term (current) drug therapy; D64.9 Anemia, unspecified; Z87.440 Personal history of urinary (tract) infections; I95.9 Hypotension, unspecified; E86.0 Dehydration; F03.90 Unspecified dementia, unspecified severity, without behavioral disturbance, psychotic disturbance, mood disturbance, and anxiety
CPT/HCPCS: 36415; 71045; 80048; 80053; 82553; 83630; 83690; 83880; 84484; 85025; 85379; 87040; 87324; 87449; 93005; 96360; A4216

== ENCOUNTER 2018-09-07 23:07 | Inpatient (IN) | payer MEDICARE, BC ==
[2018-09-08 00:52] LABS: #Monocytes 0.4 thou/uL (0.11-0.59); #Neutrophils 3.3 thou/uL (1.40-6.50); %Basophils 0.4 % (0.0-1.0); %Lymphocytes 20.7 % (21.0-51.0); %Monocytes 7.6 % (0.0-10.0); %Neutrophils 70.4 % (42.0-75.0); Mean Corpuscular HGB CONC 31.9 g/dL (32.0-36.0); Mean Corpuscular Hemoglobin 35.5 pg (27.0-31.0); Mean Platelet Volume 8.7 fL (7.4-10.4); Platelet Count 89 thou/uL (130-400); RBC Distribution Width 15.3 % (11.5-14.5); Red Blood Cell (RBC) Count 2.52 mill/uL (4.70-6.10); White Blood Cell (WBC) Count 4.7 thou/uL (4.8-10.8)
[2018-09-08 00:53] LABS: PLT Morphology Comment Appears Decreased
[2018-09-08 01:03] LABS: Bilirubin Negative (Negative); Blood, Urine Negative (Negative); Clarity Clear (Clear); Glucose, Urine (Dipstick) Negative (Negative); Leukocyte Negative (Negative); Nitrite Negative (Negative); Protein, Urine (Dipstick) Negative (Neg-Trace); Urobilinogen 0.2 mg/dL (0.2-1.0); pH, Urine 5.5 (5.0-9.0)
[2018-09-08 01:24] LABS: ALT (SGPT) 18 U/L (8-55); AST (SGOT) 26 U/L (5-34); Albumin 2.9 g/dL (3.4-4.8); Alkaline Phosphatase 60 U/L (40-150); Anion Gap 14 mmol/L (10-20); BUN (Urea Nitrogen) 70 mg/dL (8.4-25.7); Bilirubin, Total 0.5 mg/dL (0.2-1.2); Calc. Creatinine Clearance 0 mL/min (70-130); Calcium 8.9 mg/dL (7.8-10.44); Carbon Dioxide 20 mmol/L (23-31); Chloride 112 mmol/L (98-107); Estimated GFR-MDRD 18; Globulin 2.6 g/dL (2.4-3.5); Glucose 99 mg/dL (83-110); Potassium 4.3 mmol/L (3.5-5.1); Protein, Total 5.5 g/dL (5.8-8.1); Sodium 142 mmol/L (136-145)
[2018-09-08 01:30] LABS: CKMB 10.4 ng/mL (0-6.6); Troponin I 0.533 ng/mL (< 0.028)
[2018-09-08] MEDS ORDERED: Aspirin 300 MG Suppository ONE (02:03)
[2018-09-08] MEDS ORDERED: Ondansetron PF 4 MG/2 ML Vial IVP PRN (03:22)
[2018-09-08] MEDS ORDERED: Ondansetron ODT 4 MG TAB SL PRN (03:22)
[2018-09-08] MEDS ORDERED: Sodium Chloride 0.9% 1,000 ML IV SCH (03:22)
[2018-09-08] MEDS ORDERED: Acetaminophen 325 MG TAB PO PRN ×2 (03:22→10:54)
[2018-09-08 05:28] LABS: Critical Call Chem Troponin I RESULT DECREASING
--- NOTE | 2018-09-08 08:06 | CT ---
PRELIMINARY REPORT/[facility]/EMERGENTY AFTER-HOURS PROCEDURE Addendum created by Moises Brooks MD on 09/08/2018 2:04 AM Central Time ([place] & [place]) THIS REPORT CONTAINS FINDINGS THAT MAY BE CRITICAL TO PATIENT CARE. The findings were verbally commun icated via telephone conference with Jaime Rose at 2:04 AM STAFF TRAINING AND DEVELOPMENT MANAGER on 09/08/2018. The findings were ack nowledged and understood. Initial Report created on 09/08/2018 1:54 AM Central Time ([place] & [place]) CT Head Without Intravenous Contrast EXAM DATE/TIME: 09/08/2018 1:38 AM CLINICAL HISTORY: 87 years old, male; Signs and symptoms; Speech disturbance and weakness, extremity; Left; Slurred spe ech; Patient HX: 87yo m per daughter PT presents with AMS. Last known normal is 2 days prior. Adelso galaviz visiting this evening notes patient not using l arm and with stuttering and slurred speech from baseline TECHNIQUE: Axial computed tomography images of the head/brain without intravenous contrast. COMPARISON: No relevant prior studies available. FINDINGS: Brain: Scattered areas of hypoattenuation, likely chronic small vessel ischemic change, demyelination , or gliosis. Abnormal areas of hypoattenuation within the right parietal lobe, with loss of ovalle-whi te junction differentiation and overlying sulcation, compatible with acute/subacute infarction. Ventricles: Normal. Bones/joints: Normal. Sinuses: Normal as visualized. Mastoid air cells: Normal as visualized. Soft tissues: Normal. Vasculature: Atherosclerotic vascular calcifications. IMPRESSION: Abnormal areas of hypoattenuation within the right parietal lobe, with loss of ovalle-white junction di fferentiation and overlying sulcation, compatible with acute/subacute infarction. Thank you for allowing us to participate in the care of your patient. Dictated and Authenticated by: Moises Brooks MD 09/08/2018 1:54 AM Central Time ([place] & [place]) FINAL REPORT CT BRAIN WITHOUT CONTRAST: I agree with the preliminary interpretation provided by SHARON. Abnormal hypoattenuation is seen within the right frontoparietal region indicating recent infarction. No acute intracranial hemorrhage is seen. POS: [facility]
--- NOTE | 2018-09-08 08:12 | CT ---
PRELIMINARY REPORT/[facility]/EMERGENTY AFTER-HOURS PROCEDURE CT Abdomen and Pelvis Without Intravenous Contrast EXAM DATE/TIME: 09/08/2018 1:41 AM CLINICAL HISTORY: 87 years old, male; Pain; Abdominal pain; Generalized; Patient HX: Eval for possible infection. 87yo m with pmh of bradycardia S/P pacemaker, nonsustained svt on prior admission, and recent recurrent cd iff with recent ag positive but toxin negative two days ago per daughter presents with AMS. 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 Otherwise, vs wnl on transition. TECHNIQUE: Axial computed tomography images of the abdomen and pelvis without intravenous contrast. Coronal reformatted images were created and reviewed. COMPARISON: No relevant prior studies available. FINDINGS: Tubes, catheters and devices: Partially visualized pacemaker leads within the right cardiac chambers. Lower thorax: Small bilateral pleural effusions with associated posterior atelectasis. Calcified gran ulomas within the posterior right lower lobe. Calcification of the mitral valve anulus and possibly aortic valve leaflets. ABDOMEN: Liver: Mild increased attenuation of the hepatic parenchyma, which can be seen with position related disorders. Gallbladder and bile ducts: Small amount of sludge or small gallstones within the gallbladder, withou t CT evidence of acute cholecystitis. Pancreas: Normal. Spleen: Normal. Adrenals: Normal. Kidneys and ureters: Bilateral simple renal cysts, the largest on the right measuring approximately 4 cm in diameter. 2.3 cm partially exophytic anterior lower pole renal lesion, possibly proteinaceous cyst, although carcinoma not excluded. Stomach and bowel: Normal. Appendix: No evidence of appendicitis. PELVIS: Bladder: Moderate urinary bladder distention, with 4.7 x 3.0 cm right posterior lateral urinary bladd er diverticulum. Multiple nonobstructive calculi present within the urinary bladder and urinary bladd er diverticulum. Reproductive: Unremarkable as visualized. ABDOMEN and PELVIS: Intraperitoneal space: Normal. No free air. No significant fluid collection. Bones/joints: Right hip arthroplasty, without acute complications. Degenerative changes of the left h ip and sacroiliac joints. Multilevel thoracolumbar spine degenerative changes. Multiple old, healed bilateral lateral and posterior rib fractures. Surgical changes of prior multilevel lower lumbar spin e posterior decompression. Soft tissues: Normal. Vasculature: Atherosclerotic disease of the abdominal aorta and iliac arteries. Lymph nodes: Normal. No enlarged lymph nodes. IMPRESSION: 1. Small bilateral pleural effusions with associated posterior atelectasis. 2. Small amount of sludge or small gallstones within the gallbladder, without CT evidence of acute ch olecystitis. 3. 2.3 cm partially exophytic anterior lower pole renal lesion, possibly proteinaceous cyst, although carcinoma not excluded. Recommend comparison to previous studies or further evaluation. 4. Moderate urinary bladder distention, with 4.7 x 3.0 cm right posterior lateral urinary bladder div erticulum. Multiple nonobstructive calculi present within the urinary bladder and urinary bladder div erticulum. Thank you for allowing us to participate in the care of your patient. Dictated and Authenticated by: Moises Brooks MD 09/08/2018 1:58 AM Central Time ([place] & [place]) FINAL REPORT CT ABDOMEN AND PELVIS WITHOUT CONTRAST: I agree with the preliminary report given by Dr. Brooks of [facility]. Renal masses which are better evalua emerson on contrast enhanced study of 05-27-18 are stable. POS: [facility]
[2018-09-08 08:13] LABS: Critical Call Chem Troponin I RESULT DECREASING; Troponin I 0.447 ng/mL (< 0.028)
--- NOTE | 2018-09-08 09:17 | RAD ---
PORTABLE CHEST 1 VIEW: DATE: 09/07/2018. TIME: 11:34 p.m. HISTORY: Altered mental status. FINDINGS/IMPRESSION: Comparison is made with the exam of 07/21/2018. A left-sided pacing device remains in place. The heart size is normal. The aorta is tortuous. Mult iple posterior right rib fractures are again seen. No lobar consolidation, pneumothoraces, rodger pul monary edema, or large effusions are identified. POS: [facility]
[2018-09-08] MEDS: Sodium Chloride 0.9% 1,000 ML IV SCH ×2 (10:00→16:55)
[2018-09-08] MEDS ORDERED: Senokot S 8.6-50 MG TAB PO PRN (10:54)
[2018-09-08] MEDS ORDERED: Docusate 100 MG CAP PO PRN (11:01)
[2018-09-08] MEDS ORDERED: Loratadine 10 MG TAB PO PRN (11:01)
[2018-09-08 12:58] VITALS: BMI 16.5
[2018-09-08] MEDS ORDERED: Aspirin 325 MG TAB PO SCH (13:00)
--- NOTE | 2018-09-08 13:27 | HP ---
PRIMARY CARE PHYSICIAN: Dr. Reji Esqueda CHIEF COMPLAINT: Altered mental status. HISTORY OF PRESENT ILLNESS: Mr. Bailey is a pleasant 87-year-old gentleman who was seen at [facility] on 06/16/2018. The patient himself is unable to provide any significant his tory. History was obtained from discussion with the patient's daughter at the bedside, review of [facility] records and discussion with the emergency room staff. Mr. Bailey and his were at the [facility] until 1-1/2 weeks ago. His is now hospital ized at [facility]. He went to [facility] 1 week ago. He was last known to be at his baseline around 4 days ago. Three nights ago, he was reportedly trying to get out of bed a nd was therefore placed at the nurse's station. The patient's daughter reports that 2 days ago the p atient was sleepy and his voice sounded weak. He also had stool checked for C. diff. It was antigen positive and toxin negative and he was started on empiric metronidazole. The patient has also been reportedly clearing his throat after having honey thick liquids. Yesterday, the patient's daughter s aw him in the evening. She found that his left arm was flaccid and he also had altered speech. He u sually communicates with communication cards, but yesterday he was not even reaching out to look at t he card. He was therefore brought to the emergency room. REVIEW OF SYSTEMS: Could not be completed secondary to the patient's noncooperation. PAST MEDICAL HISTORY: Severe dementia, severe protein calorie malnutrition, hard of hearing, chronic anemia, Clostridium difficile colitis, nonsustained ventricular tachycardia. PAST SURGICAL HISTORY: Defibrillator placement. FAMILY HISTORY: His father of myocardial infarction at age 88. SOCIAL HISTORY: No history of tobacco use, alcohol use or recreational drug use. CODE STATUS: I discussed his code status. 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 ALLERGIES: NONSTEROIDAL ANTI-INFLAMMATORY AGENTS. The patient's daughter tells me that this is main ly because he was on Meloxicam in the past and had renal issues. She reports that it is not a true a llergy. CURRENT MEDICATIONS: Amiodarone 200 mg daily, vitamin C 500 mg daily, vitamin D3 5000 units daily, v itamin B12 1000 mcg daily, loratadine 10 mg daily, Florastor 250 mg daily, Namenda 5 mg daily, Flagyl 250 mg 4 times a day, omeprazole 20 mg daily, and multivitamins 1 capsule daily. PHYSICAL EXAMINATION: GENERAL: Mr. Bailey is sleepy, but arousable, not in acute distress. VITAL SIGNS: Blood pressure is 111/62, pulse 60, respiratory rate 16, and oxygen saturation 97% on r oom air. He is afebrile. EYES: No scleral icterus. No conjunctival pallor. ENT: Dry mucosal membranes, no oropharyngeal erythema or exudates. NECK: Supple, nontender, trachea midline. RESPIRATORY: Accessory muscles of breathing are not active. Chest wall movements are symmetric bila terally. LUNGS: Clear to auscultation without wheeze, rhonchi or crepitations. CARDIOVASCULAR: S1 and S2 are heard, regular. Peripheral pulses palpable. ABDOMEN: Soft, nontender, bowel sounds are heard. NEUROLOGIC: Full neurologic examination was not possible secondary to the patient's noncooperation. No facial droop. He has left upper extremity flaccid paralysis. He is moving the other 3 extremiti es. Deep tendon reflexes 2+, plantar's are equivocal bilaterally. SKIN: No rashes or subcutaneous nodules. LYMPHATIC: No cervical lymphadenopathy. PSYCHIATRIC: Unable to assess mood, affect or orientation to person, place or time. LABORATORY DATA: Mr. Bailey labs and investigations were reviewed. I reviewed his electrocardiogram , which shows electronic AV paced rhythm, no ST changes to suggest an acute coronary syndrome. I als o reviewed his chest x-ray, which does not show any pulmonary infiltrates. A noncontrast CT scan of the brain showed abnormal hypoattenuation within the right frontoparietal region indicating recent in farction. There is no acute intracranial hemorrhage. He has pancytopenia, with 4700 white cells, he moglobin 9 and platelet count 89,000. He has normal sodium, normal potassium, elevated blood urea ni trogen of 70, elevated creatinine of 3.21, last known creatinine 1.06 on 07/26/2018, elevated troponi n I of 0.533 and a negative urinalysis. ASSESSMENT AND PLAN: Mr. Bailey is a pleasant 87-year-old gentleman who was seen at [facility] on 09/08/2018. His problem list includes: 1. Acute metabolic encephalopathy: Mr. Bailey is presenting with acute metabolic encephalopathy, li allison multifactorial. He appears to have had an ischemic cerebrovascular accident. He also appears t o have demand ischemia. He will be admitted to the hospital for further management. 2. Ischemic cerebrovascular accident: We will obtain carotid Dopplers, and 2D echocardiogram. Sang ot obtain an MRI due to pacemaker. We will consult Neurology Service for opinion and help with manag ement. We will start the patient on aspirin and statin. 3. Elevated troponin: [id number] elevation myocardial infarction versus demand ischemia. We wi ll await Cardiology opinion. 4. Acute kidney injury: Likely prerenal, we will provide the patient with intravenous fluids and re check creatinine. Nephrology Service is being consulted. 5. Severe protein calorie malnutrition: We will consult dietitian for help with management. 6. Dementia: Continue Namenda. 7. History of Clostridium difficile diarrhea. The patient's daughter reports that he is not having diarrhea at this time. He recently had antigen positive, but toxin negative test and he is on empiri c Flagyl, we will continue. Many thanks for allowing me to participate in your patient's care. Please feel free to contact me wi th any questions or concerns. LEVEL OF RISK: High. LEVEL OF COMPLEXITY: High.
[2018-09-08] MEDS: Heparin 5,000 UNITS/ML VIAL SC SCH ×2 (14:44→22:32)
[2018-09-08] MEDS: metroNIDAZOLE 250 MG TAB PO SCH ×3 (14:44→22:32)
--- NOTE | 2018-09-08 14:46 | ULT ---
CAROTID ULTRASOUND WITH SOTOMAYOR SCALE AND DOPPLER DUPLEX COLOR FLOW IMAGING SPECTRAL ANALYSIS PERFORMED: CLINICAL INDICATION: CVA. History of altered mental status. FINDINGS: There is mild to moderate scattered atherosclerotic plaque of the carotid arteries, some of which is calcified producing shadowing, limiting visualization. PEAK SYSTOLIC VELOCITY (CM/S): Right CCA 74 Left CCA 61 Right ICA 56 Left ICA 47 There is antegrade flow within the visualized bilateral vertebral arteries. IMPRESSION: 1. No hemodynamically significant stenosis of the right internal carotid artery. 2. No hemodynamically significant stenosis of the left internal carotid artery. POS: [facility]
[2018-09-08] MEDS: Aspirin 325 mg Enteric Coated Tablet PO SCH (18:01)
[2018-09-08] MEDS: Mometasone 200 MCG HFA INHALER INH SCH (18:21)
[2018-09-08] MEDS ORDERED: Albumin 25% 25 GM/100 ML BOT IVPB SCH (20:00)
--- NOTE | 2018-09-08 22:03 | CON ---
DATE OF CONSULTATION: 09/08/2018 NEUROLOGY CONSULTATION CONSULTING PHYSICIAN: Hospitalist service. IMPRESSION: 1. Small-vessel stroke resulting in left upper extremity weakness. 2. Chronic debilitation secondary to weight loss and Clostridium difficile infection. 3. Probable recent myocardial infarction. 4. Anemia. 5. Renal insufficiency. PLAN: 1. Aspirin 81 mg per day. 2. Low-dose statin. 3. Transfer back to senior living. HISTORY OF PRESENT ILLNESS: Mr. Bailey is an 87-year-old man who has had a fairly precipitous declin e in function over the last year. His daughter reports that he was doing reasonably well until he go t C. difficile, this resulted in a 40-pound weight loss and generalized weakness. He has been in and out of rehabilitation facilities over the last few months. He suffered a prior myocardial infarctio n. He had an echocardiogram done earlier, which showed a 50% to 55% ejection fraction. His carotid ultrasound does not show any stenosis. He was not on any antiplatelet therapy prior to admission. H shant had gotten quite dehydrated due to poor care prior to this admission, then he had no stroke symptom s in the past. He has a defibrillator implanted secondary to cardiac arrhythmia. He is severely hea ring impaired and they have been using cards in order to communicate more effectively with him. He w ill speak on his own. His daughter has not noticed any change in his speech. PAST MEDICAL HISTORY: Coronary artery disease, C. difficile. ALLERGIES: NONSTEROIDALS. SOCIAL HISTORY: He is . He does not smoke or drink. FAMILY HISTORY: Noncontributory. REVIEW OF SYSTEMS: Not obtainable. PHYSICAL EXAMINATION: GENERAL: He is a cachectic appearing elderly man lying in bed in no distress. VITAL SIGNS: Stable. He is afebrile. HEENT: Pupils were equal. Conjunctivae clear. Oropharynx is clear and bit dry. NECK: Unremarkable. EXTREMITIES: No cyanosis. NEUROLOGIC: He appears to be awake and would speak intermittently, mostly complained about uncoverin g him, this seemed relatively clear and fluent. There was no facial asymmetry noted. Motor exam julissa wed some obvious flaccid weakness in the distal left upper extremity. There seemed to be reasonable tone at the biceps and deltoid was difficult to test due to complaints of pain, I could not see any s ignificant asymmetry in movement of legs. Plantar response was upgoing on the left and downgoing on the right. Gait is not testable. No abnormal movements were seen. Sensation seemed to be grossly s ymmetric to stimulation. SUMMARY: This is an elderly man who has developed some acute left-sided weakness. A CT shows eviden ce of small vessel ischemic changes. He was not on any stroke prevention prior to admission, would g o with a combo as noted above. He can transfer back to senior living.
[2018-09-08] MEDS: Atorvastatin Calcium 40 MG TAB PO SCH (22:31)
[2018-09-08] MEDS: Albumin 25% 25 GM/100 ML BOT IVPB SCH (22:31)
--- NOTE | 2018-09-08 23:40 | CON ---
DATE OF CONSULTATION: 09/08/2018 HISTORY OF PRESENT ILLNESS: Mychal Bailey is an 87-year-old white male correction resident with dementia. He has been seen and evaluated by Dr. Valente in the past when he had episodes of ventricular tachycardia on 05/2018. He was placed on increasing doses of beta leilani and on another admission, amiodarone was also added. He does have a dual chamber pacemaker that was placed many years ago in [place]. He cannot give any adequate history. Most of the history is provided by his daughter who is a nurse. She noted today that he had left arm weakness and was brought to the emergency room. She was found to have this mildly elevated troponin I. Cardiology consultation was requested. She states that he has not complained of any chest discomfort. PAST MEDICAL HISTORY: Nonsustained ventricular tachycardia, severe dementia, malnutrition, anemia, history of Clostridium difficile. OPERATION: Pacemaker placement. SOCIAL HISTORY: Does not smoke or drink. FAMILY HISTORY: Father of myocardial infarction. REVIEW OF SYSTEMS: Not obtainable. PHYSICAL EXAMINATION: VITAL SIGNS: Blood pressure 115/69, pulse of 60. HEENT: PERRL. NECK: Supple. CHEST: Clear. CARDIAC: S1, S2 normal without any S3, S4 or murmurs. ABDOMEN: Normal bowel sounds, without tenderness. EXTREMITIES: Revealed no edema. NEUROLOGIC: The patient has weakness in his left arm. IMAGING DATA AND LABORATORY DATA: EKG revealed A-B pacing. Hemoglobin 9.0, hematocrit 28.1, white count 4,700 and platelets 89,000. Sodium 142, potassium 4.3, chloride 112, carbon dioxide 20, BUN 70, creatinine 3.21 (6 weeks ago, BUN was 22, creatinine 1.06), troponin I 0.533. IMPRESSION: 1. Probable cerebrovascular accident. 2. Episodes of nonsustained ventricular tachycardia in the past, fairly well suppressed with amiodarone. 3. Status post pacemaker placement. 4. Elevated troponin I, probably related to acute kidney injury as well as demand ischemia. 5. Dementia. PLAN: Pacer will be interrogated. No other cardiac evaluation is appropriate. [facility]
[2018-09-09 00:44] LABS: INR-International Normal Ratio 1.2
--- NOTE | 2018-09-09 01:27 | CON ---
DATE OF CONSULTATION: 09/08/2018 HISTORY OF PRESENT ILLNESS: Mr. Bailey is an 87-year-old white male, custodial patient, was admitted for altered mental. Review of the CAT scan of the head did not show any acute intracranial hemorrhage, but he was found to have a recent infarction. We are being consulted for his acute kidney injury. Of interest, this patient has had difficulty taking p.o. and has decreased fluid intake. REVIEW OF SYSTEMS: Not obtainable since the patient is in sleep and confused. PAST MEDICAL HISTORY: Dementia, decreased hearing, chronic anemia, status post Clostridium difficile colitis, status post ventricular tachycardia. PAST SURGICAL HISTORY: Status post AICD placement. SOCIAL HISTORY: The patient is , 2 children, lives in a custodial/ [facility]. No IV drug abuse. Currently no alcohol, no blood transfusion. Sedentary lifestyle. ALLERGIES: NSAIDs. TRAUMA: None. IMMUNIZATIONS: Up to date. HOSPITALIZATIONS: Please see past medical history. FAMILY HISTORY: No family history of ESRD. PHYSICAL EXAMINATION: VITAL SIGNS: Blood pressure 115/69, heart rate 60, respiratory rate 16, temperature 96.5, pulse ox 100%. GENERAL: Awake, comfortable, not in overt distress, occasionally confused. SKIN: Decreased turgor. HEENT: He has pinkish conjunctivae, anicteric sclerae. NECK: No neck mass, no carotid bruits, no JVD. CHEST: No deformities. LUNGS: Decreased breath sounds. HEART: Normal sinus rhythm. No murmur, no gallops, no rubs. ABDOMEN: Globular, soft, nontender. No masses. EXTREMITIES: No edema. NEUROLOGIC: Confused, but moving all extremities. No tremors, no asterixis. LABORATORY DATA: On 09/08/2018, white count 4.7, hemoglobin 9, sodium 142, potassium 4.3, chloride 112, carbon dioxide 20, BUN 70, creatinine 3.21, glucose 99, calcium 8.9, troponin I 0.447. On 07/26/2018, creatinine 1.06. Urinalysis on 09/08/2018 benign. IMAGING: Chest x-ray shows no CHF, no infiltrates. CT scan of the abdomen and pelvis, no evidence of renal obstruction; however, finding of 2.3-cm exophytic anterior lower pole renal lesion was noted. This could be a proteinaceous cyst versus ? of carcinoma. ASSESSMENT AND PLAN: 1. Acute kidney injury - consider hemodynamically mediated renal dysfunction. No evidence of pigmented granular cast to suggest acute tubular necrosis. Agree with empiric volume repletion. Consider albumin infusion with this patient. No indication for any dialytic intervention. Continue NS infusion. 2. A 2-cm left pole renal lesion - I would not recommend further workup with this because the patient is not really viable for any surgical intervention. 3. Finding of a bladder distention. He has findings of multiple nonobstructive calculi. 4. Confusion - R/O CVA Thank you for the consult. We will continue to follow. MTDD
[2018-09-09 03:40] LABS: #Lymphocytes 0.7 thou/uL (1.20-3.40); #Monocytes 0.3 thou/uL (0.11-0.59); #Neutrophils 2.3 thou/uL (1.40-6.50); %Basophils 0.2 % (0.0-1.0); %Eosinophils 0.5 % (0.0-10.0); %Lymphocytes 21.7 % (21.0-51.0); %Monocytes 8.4 % (0.0-10.0); %Neutrophils 69.1 % (42.0-75.0); Hemoglobin 8.3 g/dL (14.0-18.0); Mean Corpuscular HGB CONC 31.8 g/dL (32.0-36.0); Mean Corpuscular Hemoglobin 36.2 pg (27.0-31.0); Mean Platelet Volume 8.6 fL (7.4-10.4); Platelet Count 130 thou/uL (130-400); RBC Distribution Width 15.3 % (11.5-14.5); White Blood Cell (WBC) Count 3.3 thou/uL (4.8-10.8)
[2018-09-09 04:00] LABS: Anion Gap 13 mmol/L (10-20); BUN (Urea Nitrogen) 55 mg/dL (8.4-25.7); Calc. Creatinine Clearance 17 mL/min (70-130); Calcium 8.6 mg/dL (7.8-10.44); Carbon Dioxide 18 mmol/L (23-31); Cardiac Risk 3.4 (Less than 4.5); Chloride 115 mmol/L (98-107); Cholesterol 126 mg/dl (< 200 Desired); Estimated GFR-MDRD 28; Glucose 102 mg/dL (83-110); HDL Cholesterol 37 mg/dL (>60 Neg Risk); LDL Cholesterol, Calculated 71 mg/dL; Potassium 4.1 mmol/L (3.5-5.1); Sodium 142 mmol/L (136-145); Triglycerides 88 mg/dL (Less than 150)
[2018-09-09] MEDS ORDERED: Albumin 25% 25 GM/100 ML BOT IVPB SCH (06:00)
[2018-09-09] MEDS ORDERED: Aspirin 325 mg Enteric Coated Tablet PO SCH (09:00)
[2018-09-09] MEDS ORDERED: Non-Formulary Item 1 EACH (Omeprazole [Omeprazole] 20 MG) PO SCH (09:00)
[2018-09-09] MEDS: Multivit, Therapeutic 1 TAB PO SCH (09:57)
[2018-09-09] MEDS: Saccharomyces boulardii 250 MG CAP PO SCH (09:57)
[2018-09-09] MEDS: Cyanocobalamin (Vitamin B-12) 1,000 MCG TAB PO SCH (09:58)
[2018-09-09] MEDS: metroNIDAZOLE 250 MG TAB PO SCH ×4 (09:58→22:50)
[2018-09-09] MEDS: Ascorbic Acid 500 mg Chewable Tablet PO SCH (09:58)
[2018-09-09] MEDS: Amiodarone 200 MG TAB PO SCH (09:58)
[2018-09-09] MEDS: Albumin 25% 25 GM/100 ML BOT IVPB SCH ×3 (10:26→17:55)
--- NOTE | 2018-09-09 11:24 | PRG ---
DATE OF SERVICE: 09/09/2018 SUBJECTIVE: Mr. Bailey is an 87-year-old white male who was recently admitted for mental status womack ge secondary to a recent cerebrovascular accident. We were consulted for his acute kidney injury. His initial creatinine was noted at 3.21. At that time, we felt he had a hemodynamically mediated re nal dysfunction. For that reason, IV hydration has been done with this patient and in addition, he h as been started on an albumin infusion. Since that time, his renal function has remained improved. This morning, he denies any chest pain or shortness of breath. PHYSICAL EXAMINATION: VITAL SIGNS: Blood pressure 114/62, heart rate 60, respiratory rate 18, temperature 97.9, pulse ox 1 00%. GENERAL: Noted to be sleepy, but arousable, not in distress. SKIN: Decreased turgor. HEENT: He has slightly pale conjunctivae, anicteric sclerae. NECK: No neck mass, no carotid bruits, no JVD. CHEST: No deformities. LUNGS: Decreased breath sounds. HEART: Normal sinus rhythm. No murmur, no gallops, no rubs. ABDOMEN: Globular, soft, nontender, no masses. EXTREMITIES: No edema, no deformities. MEDICATIONS: 09/09/2018 - Reviewed. LABORATORY DATA: 09/09/2018 - White count 3.3, hemoglobin 8.3. Sodium 142, potassium 4.1, chloride 115, carbon dioxide 18, BUN 55, creatinine 2.25, glucose 102, calcium 8.6, cholesterol 126. ASSESSMENT AND PLAN: Acute kidney injury - hemodynamically mediated renal dysfunction. Much improve d renal function with IV hydration. Currently on normal saline and albumin infusion. I would contin ue the current management. No indication for any dialytic intervention. Continue supportive care. Recheck base met in a.m.
[2018-09-09] MEDS: Heparin 5,000 UNITS/ML VIAL SC SCH ×3 (12:00→22:50)
--- NOTE | 2018-09-09 13:03 | PDOC.PN ---
- Subjective Encounter Start Date: 09/09/18 Encounter Start Time: 07:00 Pt seen for followup re: ischemic CVA. Pt sleepy but arousable, not talking, unable to complete ROS. - Objective Resuscitation Status: Resuscitation Status CHEM:Chem Code Only MAR Reviewed: Yes Vital Signs & Weight: Vital Signs (12 hours) Temp Pulse Resp BP Pulse Ox 09/09/18 12:00 98.2 F 60 20 137/71 99 09/09/18 09:55 100 09/09/18 07:59 97.9 F 60 18 114/62 100 09/09/18 04:00 97.7 F 60 18 98/64 100 Weight Admit Weight 122 lb 3.2 oz Weight 122 lb 3.2 oz I&O: 09/08/18 09/09/18 09/10/18 06:59 06:59 06:59 Intake Total 105 Output Total 700 350 Balance -595 -350 Result Diagrams: 09/09/18 00:14 09/09/18 00:14 EKG Reviewed by me: Yes (Tele: AV-paced rhythm) Phys Exam - Physical Examination malnourished HEENT: moist MMs, sclera anicteric, oral pharynx no lesions, 2+ tonsils Neck: no nodes, no JVD, supple, full ROM Respiratory: no wheezing, no rales, no rhonchi, clear to auscultation bilateral Cardiovascular: RRR, no rub S1, S2 Gastrointestinal: soft, non-tender, no distention, positive bowel sounds flaccid RUE, moving other 3 extremities Deviation from normal: Unable to assess mood, affect or orientation to person, place or time Dx/Plan (1) Encephalopathy acute Code(s): G93.40 - ENCEPHALOPATHY, UNSPECIFIED Status: Acute Comment: due to combination of dementia and ischemic stroke (2) Ischemic cerebrovascular accident (CVA) Code(s): I63.9 - CEREBRAL INFARCTION, UNSPECIFIED Status: Acute Comment: continue aspirin and statin (3) LETI (acute kidney injury) Code(s): N17.9 - ACUTE KIDNEY FAILURE, UNSPECIFIED Status: Acute Comment: creatinine improved to 2.25, pt received albumin infusion (4) Demand ischemia of myocardium Code(s): I24.8 - OTHER FORMS OF ACUTE ISCHEMIC HEART DISEASE Status: Acute Comment: appreciate cardiology service input (5) Dementia Code(s): F03.90 - UNSPECIFIED DEMENTIA WITHOUT BEHAVIORAL DISTURBANCE Status: Chronic Comment: currently at baseline. - Plan continue antibiotics, PT/OT, out of bed/ambulate * . Review of Systems - Medications/Allergies Allergies/Adverse Reactions: Allergies Allergy/AdvReac Type Severity Reaction Status Date / Time NSAIDS (Non-Steroidal Allergy Verified 05/27/18 04:51 Anti-Inflamma Medications: Current Medications Acetaminophen (Tylenol) 650 mg PO Q4H PRN PRN Reason: Headache/Fever/Mild Pain (1-3) Albumin Human (Albumin 25%) 25 gm IVPB Q6HR [facility] Stop: 09/11/18 00:00 Last Admin: 09/09/18 12:00 Dose: 25 gm Amiodarone HCl (Cordarone) 200 mg PO DAILY [facility] Last Admin: 09/09/18 09:58 Dose: 200 mg Ascorbic Acid (Vitamin C) 500 mg PO DAILY [facility] Last Admin: 09/09/18 09:58 Dose: 500 mg Aspirin (Ecotrin) 325 mg PO 2100 [facility] Last Admin: 09/08/18 18:01 Dose: Not Given Atorvastatin Calcium (Lipitor) 40 mg PO HS [facility] Last Admin: 09/08/18 22:31 Dose: 40 mg Cholecalciferol (Vitamin D3) 5,000 units PO DAILY [facility] Last Admin: 09/09/18 09:58 Dose: 5,000 units Cyanocobalamin (Vitamin B-12) 1,000 mcg PO DAILY [facility] Last Admin: 09/09/18 09:58 Dose: 1,000 mcg Docusate Sodium (Colace) 100 mg PO DAILY PRN PRN Reason: Constipation Heparin Sodium (Porcine) (Heparin) 5,000 units SC TID [facility] Last Admin: 09/09/18 12:00 Dose: 5,000 units Sodium Chloride (Normal Saline 0.9%) 1,000 mls @ 70 mls/hr IV .[id number] [facility] Last Admin: 09/08/18 16:55 Dose: 1,000 mls Loratadine (Claritin) 10 mg PO DAILY PRN PRN Reason: Allergies Memantine (Namenda) 5 mg PO DAILY [facility] Last Admin: 09/09/18 09:57 Dose: 5 mg Metronidazole (Flagyl) 250 mg PO QID [facility] Last Admin: 09/09/18 12:00 Dose: 250 mg Mometasone Furoate (Asmanex Hfa 200 Mcg) 1 puff INH 1830 [facility] Last Admin: 09/08/18 18:21 Dose: Not Given Multivitamins (Theragran) 1 tab PO DAILY [facility] Last Admin: 09/09/18 09:57 Dose: 1 tab Pantoprazole Sodium (Protonix) 40 mg PO DAILY [facility] Last Admin: 09/09/18 09:57 Dose: 40 mg Saccharomyces Boulardii (Florastor) 250 mg PO DAILY [facility] Last Admin: 09/09/18 09:57 Dose: 250 mg Senna/Docusate Sodium (Senokot S) 2 tab PO BID PRN PRN Reason: Constipation Sodium Chloride (Flush - Normal Saline) 10 ml IVF Q12HR [facility] Last Admin: 09/09/18 09:59 Dose: Not Given Sodium Chloride (Flush - Normal Saline) 10 ml IVF PRN PRN PRN Reason: Saline Flush
[2018-09-09] MEDS: Sodium Chloride 0.9% 1,000 ML IV SCH (15:16)
[2018-09-09] MEDS: Mometasone 200 MCG HFA INHALER INH SCH (19:44)
[2018-09-09] MEDS: Aspirin 325 mg Enteric Coated Tablet PO SCH (22:50)
[2018-09-09] MEDS: Atorvastatin Calcium 40 MG TAB PO SCH (22:50)
[2018-09-10] MEDS: Albumin 25% 25 GM/100 ML BOT IVPB SCH ×4 (00:43→21:06)
[2018-09-10 03:54] LABS: #Lymphocytes 0.5 thou/uL (1.20-3.40); #Monocytes 0.2 thou/uL (0.11-0.59); #Neutrophils 1.8 thou/uL (1.40-6.50); %Eosinophils 1.1 % (0.0-10.0); %Lymphocytes 19.8 % (21.0-51.0); %Monocytes 8.5 % (0.0-10.0); %Neutrophils 70.5 % (42.0-75.0); Hemoglobin 7.2 g/dL (14.0-18.0); Mean Corpuscular HGB CONC 33.1 g/dL (32.0-36.0); Mean Corpuscular Hemoglobin 37.3 pg (27.0-31.0); Mean Platelet Volume 8.2 fL (7.4-10.4); Platelet Count 120 thou/uL (130-400); RBC Distribution Width 15.3 % (11.5-14.5); Red Blood Cell (RBC) Count 1.93 mill/uL (4.70-6.10); White Blood Cell (WBC) Count 2.6 thou/uL (4.8-10.8)
[2018-09-10 04:12] LABS: Anion Gap 11 mmol/L (10-20); BUN (Urea Nitrogen) 41 mg/dL (8.4-25.7); Calc. Creatinine Clearance 24 mL/min (70-130); Calcium 8.5 mg/dL (7.8-10.44); Carbon Dioxide 18 mmol/L (23-31); Chloride 121 mmol/L (98-107); Estimated GFR-MDRD 40; Glucose 104 mg/dL (83-110); Potassium 3.8 mmol/L (3.5-5.1); Sodium 146 mmol/L (136-145)
--- NOTE | 2018-09-10 10:15 | PRG ---
DATE OF SERVICE: 09/10/2018 SUBJECTIVE: Mr. Bailey is an 87-year-old white male, who was admitted for confusion and a possible c erebrovascular accident. We were consulted for his acute kidney injury. At that time, I felt this w as hemodynamically mediated renal dysfunction. He was given IV volume repletion with improvement of the said renal function. No new complaints today. The patient still noted to be confused. OBJECTIVE: VITAL SIGNS: Blood pressure is 149/83, heart rate 61, respiratory rate 14, temperature 97.7, pulse o x 98%. GENERAL: The patient is awake, confused, supine, not in distress. SKIN: Adequate turgor. HEENT: Pinkish conjunctivae. Anicteric sclerae. NECK: No neck mass, no carotid bruits, no JVD. CHEST: No deformities. LUNGS: Clear breath sounds. No wheezing, no crackles. HEART: Normal sinus rhythm. No murmur, no gallops, no rubs. ABDOMEN: Globular, soft, nontender, no masses. EXTREMITIES: No edema, no deformities. MEDICATIONS: 09/10/2018 reviewed. LABORATORY DATA: Laboratories of 09/10/2018; white count 2.6, hemoglobin 7.2, hematocrit 21.7, and p latelet count 120,000. Sodium 146, potassium 4.8, chloride 121, carbon dioxide 18, BUN 41, creatinin e 1.63, glucose 104, calcium 8.5. ASSESSMENT AND PLAN: 1. Acute kidney injury -- hemodynamically mediated renal dysfunction. Much improved with IV hydrati on. The patient has history of albumin and crystalloids, IV normal saline. Continue current managem ent. There is no indication for any dialytic intervention for this patient. 2. Mild leukopenia. We will simply observe this. 3. Recheck base met and CBC in a.m.
[2018-09-10] MEDS: Heparin 5,000 UNITS/ML VIAL SC SCH ×3 (11:03→20:58)
[2018-09-10] MEDS: Amiodarone 200 MG TAB PO SCH (11:03)
[2018-09-10] MEDS: metroNIDAZOLE 250 MG TAB PO SCH ×4 (11:03→20:51)
[2018-09-10] MEDS: Ascorbic Acid 500 mg Chewable Tablet PO SCH (11:18)
[2018-09-10] MEDS: Cyanocobalamin (Vitamin B-12) 1,000 MCG TAB PO SCH (11:21)
[2018-09-10] MEDS: Multivit, Therapeutic 1 TAB PO SCH (11:21)
[2018-09-10] MEDS: Saccharomyces boulardii 250 MG CAP PO SCH (11:22)
--- NOTE | 2018-09-10 13:48 | PDOC.PN ---
- Subjective Encounter Start Date: 09/10/18 Encounter Start Time: 07:00 Pt seen for followup re: metabolic encephalopathy. Opening eyes, not answering questions, unable to complete ROS. - Objective Resuscitation Status: Resuscitation Status CHEM:Chem Code Only MAR Reviewed: Yes Vital Signs & Weight: Vital Signs (12 hours) Temp Pulse Resp BP Pulse Ox 09/10/18 12:00 97.7 F 60 18 110/70 99 09/10/18 08:00 97.7 F 61 14 149/83 H 98 09/10/18 04:00 98.2 F 60 18 122/74 97 Weight Admit Weight 122 lb 3.2 oz Weight 122 lb 3.2 oz I&O: 09/09/18 09/10/18 09/11/18 06:59 06:59 06:59 Intake Total 996 Output Total 350 450 Balance -350 -450 996 Result Diagrams: 09/10/18 03:25 09/10/18 03:25 EKG Reviewed by me: Yes (Tele; electronic AV-paced) Phys Exam - Physical Examination Constitutional: NAD HEENT: moist MMs Neck: supple Respiratory: clear to auscultation bilateral Cardiovascular: RRR Gastrointestinal: soft LUE weakness Psychiatric: normal affect Dx/Plan (1) Encephalopathy acute Code(s): G93.40 - ENCEPHALOPATHY, UNSPECIFIED Status: Acute Comment: Improving, likely due to combination of dementia and ischemic stroke (2) Ischemic cerebrovascular accident (CVA) Code(s): I63.9 - CEREBRAL INFARCTION, UNSPECIFIED Status: Acute Comment: on aspirin and statin (3) LETI (acute kidney injury) Code(s): N17.9 - ACUTE KIDNEY FAILURE, UNSPECIFIED Status: Acute Comment: creatinine improved to 1.63 today, pt receiving albumin infusion (4) Demand ischemia of myocardium Code(s): I24.8 - OTHER FORMS OF ACUTE ISCHEMIC HEART DISEASE Status: Acute Comment: cardiology following (5) Dementia Code(s): F03.90 - UNSPECIFIED DEMENTIA WITHOUT BEHAVIORAL DISTURBANCE Status: Chronic Comment: currently at baseline. - Plan * . Review of Systems - Medications/Allergies Allergies/Adverse Reactions: Allergies Allergy/AdvReac Type Severity Reaction Status Date / Time NSAIDS (Non-Steroidal Allergy Verified 05/27/18 04:51 Anti-Inflamma Medications: Current Medications Acetaminophen (Tylenol) 650 mg PO Q4H PRN PRN Reason: Headache/Fever/Mild Pain (1-3) Amiodarone HCl (Cordarone) 200 mg PO DAILY [facility] Last Admin: 09/10/18 11:03 Dose: 200 mg Ascorbic Acid (Vitamin C) 500 mg PO DAILY [facility] Last Admin: 09/10/18 11:18 Dose: 500 mg Aspirin (Ecotrin) 325 mg PO 2100 [facility] Last Admin: 09/09/18 22:50 Dose: 325 mg Atorvastatin Calcium (Lipitor) 40 mg PO HS [facility] Last Admin: 09/09/18 22:50 Dose: 40 mg Cholecalciferol (Vitamin D3) 5,000 units PO DAILY [facility] Last Admin: 09/10/18 11:21 Dose: 5,000 units Cyanocobalamin (Vitamin B-12) 1,000 mcg PO DAILY [facility] Last Admin: 09/10/18 11:21 Dose: 1,000 mcg Docusate Sodium (Colace) 100 mg PO DAILY PRN PRN Reason: Constipation Heparin Sodium (Porcine) (Heparin) 5,000 units SC TID [facility] Last Admin: 09/10/18 11:03 Dose: 5,000 units Sodium Chloride (Normal Saline 0.9%) 1,000 mls @ 70 mls/hr IV .[id number] [facility] Last Admin: 09/09/18 15:16 Dose: 1,000 mls Loratadine (Claritin) 10 mg PO DAILY PRN PRN Reason: Allergies Memantine (Namenda) 5 mg PO DAILY [facility] Last Admin: 09/10/18 11:03 Dose: 5 mg Metronidazole (Flagyl) 250 mg PO QID [facility] Last Admin: 09/10/18 12:57 Dose: 250 mg Mometasone Furoate (Asmanex Hfa 200 Mcg) 1 puff INH 1830 [facility] Last Admin: 09/09/18 19:44 Dose: Not Given Multivitamins (Theragran) 1 tab PO DAILY [facility] Last Admin: 09/10/18 11:21 Dose: 1 tab Pantoprazole Sodium (Protonix) 40 mg PO DAILY [facility] Last Admin: 09/10/18 11:03 Dose: 40 mg Saccharomyces Boulardii (Florastor) 250 mg PO DAILY [facility] Last Admin: 09/10/18 11:22 Dose: 250 mg Senna/Docusate Sodium (Senokot S) 2 tab PO BID PRN PRN Reason: Constipation Sodium Chloride (Flush - Normal Saline) 10 ml IVF Q12HR [facility] Last Admin: 09/10/18 11:23 Dose: Not Given Sodium Chloride (Flush - Normal Saline) 10 ml IVF PRN PRN PRN Reason: Saline Flush
[2018-09-10] MEDS: Mometasone 200 MCG HFA INHALER INH SCH (18:37)
[2018-09-10] MEDS: Sodium Chloride 0.9% 1,000 ML IV SCH ×2 (19:30→20:58)
[2018-09-10] MEDS: Aspirin 325 mg Enteric Coated Tablet PO SCH (20:51)
[2018-09-10] MEDS: Atorvastatin Calcium 40 MG TAB PO SCH (20:51)
[2018-09-11] MEDS: Albumin 25% 25 GM/100 ML BOT IVPB SCH (01:52)
[2018-09-11 04:18] LABS: #Lymphocytes 0.6 thou/uL (1.20-3.40); #Monocytes 0.2 thou/uL (0.11-0.59); #Neutrophils 1.9 thou/uL (1.40-6.50); %Basophils 0.3 % (0.0-1.0); %Lymphocytes 21.8 % (21.0-51.0); %Monocytes 7.8 % (0.0-10.0); %Neutrophils 69.2 % (42.0-75.0); Hemoglobin 6.3 g/dL (14.0-18.0); Mean Corpuscular HGB CONC 32.5 g/dL (32.0-36.0); Mean Corpuscular Hemoglobin 36.3 pg (27.0-31.0); Mean Platelet Volume 7.8 fL (7.4-10.4); Platelet Count 124 thou/uL (130-400); RBC Distribution Width 15.7 % (11.5-14.5); Red Blood Cell (RBC) Count 1.72 mill/uL (4.70-6.10); White Blood Cell (WBC) Count 2.7 thou/uL (4.8-10.8)
[2018-09-11 04:29] LABS: Anion Gap 12 mmol/L (10-20); BUN (Urea Nitrogen) 36 mg/dL (8.4-25.7); Calc. Creatinine Clearance 29 mL/min (70-130); Calcium 8.7 mg/dL (7.8-10.44); Carbon Dioxide 18 mmol/L (23-31); Chloride 120 mmol/L (98-107); Estimated GFR-MDRD 49; Glucose 100 mg/dL (83-110); Potassium 3.7 mmol/L (3.5-5.1); Sodium 146 mmol/L (136-145)
--- NOTE | 2018-09-11 09:14 | PRG ---
DATE OF SERVICE: 09/11/2018 SERVICE: Renal Medicine. SUBJECTIVE: Mr. Bailey is an 87-year-old white male who was admitted for mental status change second tram to CVA, seen by the Renal Service for his acute kidney injury that was hemodynamically mediated r enal dysfunction. Renal function has been improving over time with gentle volume repletion. Today, he was noted to be anemic and symptomatic. We will plan to give 1 unit of packed RBC. In addition, he has a left upper extremity infiltration, which looks not infected and is stable. No other complai nts, no chest pain or shortness of breath. PHYSICAL EXAMINATION: VITAL SIGNS: Blood pressure 122/73, heart rate 60, respiratory rate 16, temperature 97.9, pulse ox 9 7%. GENERAL: Awake, alert, comfortable, not in distress. SKIN: Adequate turgor. HEENT: Pale conjunctivae, anicteric sclerae. NECK: No neck mass, no carotid bruits, no JVD. CHEST: No deformities. LUNGS: Clear breath sounds. No wheezing, no crackles. HEART: Normal sinus rhythm. No murmur, no gallops or rubs. ABDOMEN: Globular, soft, nontender, no masses. EXTREMITIES: No edema, no deformities. Positive for mild swelling of the left upper extremity. NEUROLOGICAL: The patient is occasionally confused, moving all extremities. MEDICATIONS: Of 09/11/2018 was reviewed. LABORATORY DATA: Of 09/11/2018, white count 2.7, hemoglobin 6.3. Sodium 146, potassium 3.7, chlorid e 120, carbon dioxide 18, BUN 36, creatinine 1.36, glucose 100, calcium 8.7. ASSESSMENT AND PLAN: 1. Acute kidney injury - hemodynamically mediated renal dysfunction. Improving renal function with gentle volume repletion. Continue to optimize hemodynamic status. 2. Anemia. We will transfuse 1 unit of packed RBC. 3. Left forearm, upper extremity infiltrate - stable. Supportive care. 4. Status post cerebrovascular accident. Supportive care. Awaiting placement.
[2018-09-11 09:30] LABS: Hemoglobin 6.6 g/dL (14.0-18.0)
[2018-09-11] MEDS: Heparin 5,000 UNITS/ML VIAL SC SCH ×3 (10:13→21:35)
[2018-09-11] MEDS: metroNIDAZOLE 250 MG TAB PO SCH ×4 (10:15→21:34)
[2018-09-11] MEDS: Amiodarone 200 MG TAB PO SCH (10:15)
[2018-09-11] MEDS: Ascorbic Acid 500 mg Chewable Tablet PO SCH (10:15)
[2018-09-11] MEDS: Cyanocobalamin (Vitamin B-12) 1,000 MCG TAB PO SCH (10:15)
[2018-09-11] MEDS: Multivit, Therapeutic 1 TAB PO SCH (10:15)
[2018-09-11] MEDS: Saccharomyces boulardii 250 MG CAP PO SCH (10:15)
[2018-09-11] MEDS ORDERED: Bisacodyl 5 MG TAB PO PRN ×2 (10:16)
--- NOTE | 2018-09-11 11:28 | PDOC.PN ---
- Subjective Encounter Start Date: 09/11/18 Encounter Start Time: 07:00 Pt seen for followup re: pancytopenia. Pt answering questions, denies chest pain, shortness of breath, fevers or chills. Feels cold. - Objective Resuscitation Status: Resuscitation Status CHEM:Chem Code Only MAR Reviewed: Yes Vital Signs & Weight: Vital Signs (12 hours) Temp Pulse Resp BP Pulse Ox 09/11/18 05:43 97 09/11/18 04:00 97.9 F 60 16 122/73 97 09/10/18 23:29 98.2 F 62 16 92/58 L 98 Weight Admit Weight 122 lb 3.2 oz Weight 122 lb 3.2 oz I&O: 09/10/18 09/11/18 09/12/18 06:59 06:59 06:59 Intake Total 2356 Output Total 450 1275 Balance -450 1081 Result Diagrams: 09/11/18 09:21 09/11/18 03:18 EKG Reviewed by me: Yes (Tele: AV-paced) Phys Exam - Physical Examination malnourished HEENT: moist MMs Neck: supple Respiratory: clear to auscultation bilateral Cardiovascular: RRR Gastrointestinal: soft L forearm swelling Neurological: moves all 4 limbs Psychiatric: normal affect Dx/Plan (1) Pancytopenia Code(s): D61.818 - OTHER PANCYTOPENIA Status: Acute Comment: etiology unclear, will monitor blood counts. Will initiate workup for anemia. (2) Encephalopathy acute Code(s): G93.40 - ENCEPHALOPATHY, UNSPECIFIED Status: Acute Comment: Improving (3) Ischemic cerebrovascular accident (CVA) Code(s): I63.9 - CEREBRAL INFARCTION, UNSPECIFIED Status: Acute Comment: will continue aspirin and statin (4) LETI (acute kidney injury) Code(s): N17.9 - ACUTE KIDNEY FAILURE, UNSPECIFIED Status: Acute Comment: creatinine improved to 1.36 today, pt receiving albumin infusion (5) Demand ischemia of myocardium Code(s): I24.8 - OTHER FORMS OF ACUTE ISCHEMIC HEART DISEASE Status: Acute Comment: cardiology following (6) Dementia Code(s): F03.90 - UNSPECIFIED DEMENTIA WITHOUT BEHAVIORAL DISTURBANCE Status: Chronic Comment: currently at baseline. - Plan * . Review of Systems - Review of Systems Respiratory: negative: Cough, Shortness of Breath, SOB with Excertion, Pleuritic Pain, Wheezing Cardiovascular: negative: chest pain, palpitations, orthopnea, paroxysmal nocturnal dyspnea, edema, light headedness - Medications/Allergies Allergies/Adverse Reactions: Allergies Allergy/AdvReac Type Severity Reaction Status Date / Time NSAIDS (Non-Steroidal Allergy Verified 05/27/18 04:51 Anti-Inflamma Medications: Current Medications Acetaminophen (Tylenol) 650 mg PO Q4H PRN PRN Reason: Headache/Fever/Mild Pain (1-3) Amiodarone HCl (Cordarone) 200 mg PO DAILY [facility] Last Admin: 09/11/18 10:15 Dose: 200 mg Ascorbic Acid (Vitamin C) 500 mg PO DAILY [facility] Last Admin: 09/11/18 10:15 Dose: 500 mg Aspirin (Ecotrin) 325 mg PO 2100 [facility] Last Admin: 09/10/18 20:51 Dose: 325 mg Atorvastatin Calcium (Lipitor) 40 mg PO HS [facility] Last Admin: 09/10/18 20:51 Dose: 40 mg Bisacodyl (Dulcolax) 10 mg PO DAILYPRN PRN PRN Reason: Constipation Bisacodyl (Dulcolax) 10 mg PO DAILYPRN PRN PRN Reason: Constipation Cholecalciferol (Vitamin D3) 5,000 units PO DAILY [facility] Last Admin: 09/11/18 10:14 Dose: 5,000 units Cyanocobalamin (Vitamin B-12) 1,000 mcg PO DAILY [facility] Last Admin: 09/11/18 10:15 Dose: 1,000 mcg Docusate Sodium (Colace) 100 mg PO DAILY PRN PRN Reason: Constipation Heparin Sodium (Porcine) (Heparin) 5,000 units SC TID [facility] Last Admin: 09/11/18 10:13 Dose: 5,000 units Sodium Chloride (Normal Saline 0.9%) 1,000 mls @ 70 mls/hr IV .[id number] [facility] Last Admin: 09/10/18 20:58 Dose: Not Given Loratadine (Claritin) 10 mg PO DAILY PRN PRN Reason: Allergies Memantine (Namenda) 5 mg PO DAILY [facility] Last Admin: 09/11/18 10:15 Dose: 5 mg Metronidazole (Flagyl) 250 mg PO QID [facility] Last Admin: 09/11/18 10:15 Dose: 250 mg Mometasone Furoate (Asmanex Hfa 200 Mcg) 1 puff INH 1830 [facility] Last Admin: 09/10/18 18:37 Dose: 1 puff Multivitamins (Theragran) 1 tab PO DAILY [facility] Last Admin: 09/11/18 10:15 Dose: 1 tab Pantoprazole Sodium (Protonix) 40 mg PO DAILY [facility] Last Admin: 09/11/18 10:15 Dose: 40 mg Saccharomyces Boulardii (Florastor) 250 mg PO DAILY [facility] Last Admin: 09/11/18 10:15 Dose: 250 mg Senna/Docusate Sodium (Senokot S) 2 tab PO BID PRN PRN Reason: Constipation Sodium Chloride (Flush - Normal Saline) 10 ml IVF Q12HR [facility] Last Admin: 09/11/18 10:16 Dose: 10 ml Sodium Chloride (Flush - Normal Saline) 10 ml IVF PRN PRN PRN Reason: Saline Flush
[2018-09-11 12:22] LABS: Iron 47 ug/dL (65-175); Iron Binding Capacity, Total 63 mcg/dL (261-462)
[2018-09-11 12:55] LABS: Folate (Folic Acid) 7.7 ng/mL (7.0-31.4)
[2018-09-11] MEDS: Sodium Chloride 0.9% 1,000 ML IV SCH (17:42)
[2018-09-11] MEDS: Mometasone 200 MCG HFA INHALER INH SCH (18:58)
[2018-09-11] MEDS: Atorvastatin Calcium 40 MG TAB PO SCH (21:34)
[2018-09-11] MEDS: Aspirin 325 mg Enteric Coated Tablet PO SCH (21:34)
--- NOTE | 2018-09-11 22:12 | ULT ---
LEFT UPPER EXTREMITY VENOUS ULTRASOUND WITH DOPPLER: HISTORY: Left upper extremity swelling. COMPARISON: None. TECHNIQUE: Santiago-scale, color-flow, and Doppler imaging with spectral wave-form analysis was performed of the lef t upper extremity venous system. FINDINGS: Limited evaluation due to the patient's arm being contracted. There is evidence of edema and possible effusion involving the elbow and forearm. There is patency and flow in the left jugular vein. There is flow in the left subclavian vein. The left axillary vein compresses and has flow. There is compressibility and flow in the brachial vein a nd basilic vein. The cephalic vein and radial and ulnar veins are not demonstrated. IMPRESSION: 1. Effusion involving the left elbow with forearm edema. 2. Incomplete evaluation of the left upper extremity venous system. The visualized left upper extre mity venous system is patent. POS: ELIZA
[2018-09-12] MEDS: Sodium Chloride 0.9% 1,000 ML IV SCH ×2 (02:59→21:53)
[2018-09-12 06:43] LABS: #Lymphocytes 0.7 thou/uL (1.20-3.40); #Monocytes 0.3 thou/uL (0.11-0.59); #Neutrophils 3.3 thou/uL (1.40-6.50); %Eosinophils 0.8 % (0.0-10.0); %Lymphocytes 15.6 % (21.0-51.0); %Neutrophils 77.5 % (42.0-75.0); Hemoglobin 8.4 g/dL (14.0-18.0); Mean Corpuscular HGB CONC 33.2 g/dL (32.0-36.0); Mean Corpuscular Hemoglobin 36.7 pg (27.0-31.0); Mean Platelet Volume 7.5 fL (7.4-10.4); Platelet Count 132 thou/uL (130-400); RBC Distribution Width 16.5 % (11.5-14.5); Red Blood Cell (RBC) Count 2.27 mill/uL (4.70-6.10); White Blood Cell (WBC) Count 4.3 thou/uL (4.8-10.8)
[2018-09-12] MEDS ORDERED: Levothyroxine Sodium 25 MCG TAB PO SCH (07:00)
[2018-09-12 07:05] LABS: Anion Gap 12 mmol/L (10-20); BUN (Urea Nitrogen) 32 mg/dL (8.4-25.7); Calc. Creatinine Clearance 34 mL/min (70-130); Calcium 8.7 mg/dL (7.8-10.44); Carbon Dioxide 17 mmol/L (23-31); Chloride 119 mmol/L (98-107); Estimated GFR-MDRD 60; Glucose 112 mg/dL (83-110); Potassium 3.5 mmol/L (3.5-5.1); Sodium 144 mmol/L (136-145)
[2018-09-12] MEDS: Saccharomyces boulardii 250 MG CAP PO SCH (09:56)
[2018-09-12] MEDS: metroNIDAZOLE 250 MG TAB PO SCH ×5 (09:56→21:53)
[2018-09-12] MEDS: Multivit, Therapeutic 1 TAB PO SCH (09:56)
[2018-09-12] MEDS: Ascorbic Acid 500 mg Chewable Tablet PO SCH (09:57)
[2018-09-12] MEDS: Amiodarone 200 MG TAB PO SCH (09:57)
--- NOTE | 2018-09-12 10:13 | PRG ---
DATE OF SERVICE: 09/12/2018 RENAL MEDICINE SUBJECTIVE: Mr. Bailey is an 87-year-old white male who was initially admitted for confusion seconda ry to a CVA. We are following this patient for his acute kidney injury. Renal function is much impr chantelle with IV hydration. He has received albumin. He is currently on normal saline 70 mL per hour. He also developed some left upper extremity edema secondary to IV infiltration. A left upper extremi ty venous ultrasound with Doppler was done and it showed effusion involving the left elbow with forea rm edema. The visualized left upper extremity venous system was noted to be patent. No new complain ts today. The patient is still confused. OBJECTIVE: VITAL SIGNS: Blood pressure 148/83, heart rate 59, respiratory rate 16, temperature 98.5, pulse ox 9 6%. GENERAL: The patient is awake, confused, not in distress. SKIN: Adequate turgor. HEENT: Slightly pale conjunctivae, anicteric sclerae. NECK: No neck mass, no carotid bruits, no JVD. CHEST: No deformities. LUNGS: Clear breath sounds. No wheezing, no crackles. HEART: Normal sinus rhythm. No murmur, no gallops, no rubs. ABDOMEN: Globular, soft, nontender, no masses. EXTREMITIES: No leg edema. Left upper extremity edema noted with some erythema. MEDICATIONS: Medications of 09/12/2018 was reviewed. LABORATORY DATA: Laboratories of 09/12/2018, white count 4.3, hemoglobin 8.4, hematocrit 25.2. Sodi um 146, potassium 3.7 on 09/11/2018. Sodium 146, potassium 3.7, chloride 120, carbon dioxide 18, BUN 36, creatinine 1.36. Iron 47, creatinine 267. TSH 46. Folate is 1405. ASSESSMENT AND PLAN: 1. Acute kidney injury -- Awaiting repeat base met this morning. However, renal function improving over the last several days. Continuing gentle volume repletion. Currently on normal saline. No crystal nges to be made. No indication for any dialytic intervention. 2. Anemia, status post blood transfusion, much improved. Continue to observe. 3. Left upper extremity edema -- No evidence of DVT. 4. Elevated TSH. Start Synthroid 25 mcg 1 tab daily. 5. Status post cerebrovascular accident. Continue supportive care. We will recheck base met and CBC in a.m.
[2018-09-12 11:05] LABS: Free T4 (Free Thyroxine) 0.42 ng/dL (0.70-1.48)
[2018-09-12] MEDS: Heparin 5,000 UNITS/ML VIAL SC SCH ×2 (11:37→16:32)
[2018-09-12] MEDS: Cyanocobalamin (Vitamin B-12) 1,000 MCG TAB PO SCH (12:27)
--- NOTE | 2018-09-12 13:12 | PDOC.PN ---
- Subjective Encounter Start Date: 09/12/18 Encounter Start Time: 07:00 Pt seen for followup re: acute metabolic encephalopathy. Denies chest pain, shortness of breath, fevers or chills. - Objective Resuscitation Status: Resuscitation Status CHEM:Chem Code Only MAR Reviewed: Yes Vital Signs & Weight: Vital Signs (12 hours) Temp Pulse Resp BP Pulse Ox 09/12/18 12:28 97.4 F L 60 14 142/72 H 100 09/12/18 07:57 98 09/12/18 07:52 97.9 F 60 20 148/80 H 98 09/12/18 04:00 98.5 F 59 L 16 148/83 H 96 Weight Admit Weight 122 lb 3.2 oz Weight 122 lb 3.2 oz I&O: 09/11/18 09/12/18 09/13/18 06:59 06:59 06:59 Intake Total 2356 1420 Output Total 1275 1050 Balance 1081 370 Result Diagrams: 09/13/18 06:22 09/13/18 06:22 Additional Labs: Accuchecks 09/09/18 10:42 POC Glucose 111 H EKG Reviewed by me: Yes (Tele: NSR) Phys Exam - Physical Examination Constitutional: NAD HEENT: moist MMs Neck: supple Respiratory: clear to auscultation bilateral Cardiovascular: RRR Gastrointestinal: soft Musculoskeletal: edema present LUE edema Neurological: moves all 4 limbs Psychiatric: normal affect Dx/Plan (1) Encephalopathy acute Code(s): G93.40 - ENCEPHALOPATHY, UNSPECIFIED Status: Acute Comment: Improving (2) Pancytopenia Code(s): D61.818 - OTHER PANCYTOPENIA Status: Acute Comment: hemoglobin and white count improved, thrombocytopenia resolved. (3) Ischemic cerebrovascular accident (CVA) Code(s): I63.9 - CEREBRAL INFARCTION, UNSPECIFIED Status: Acute Comment: continue aspirin and statin (4) Demand ischemia of myocardium Code(s): I24.8 - OTHER FORMS OF ACUTE ISCHEMIC HEART DISEASE Status: Acute Comment: cardiology following (5) Dementia Code(s): F03.90 - UNSPECIFIED DEMENTIA WITHOUT BEHAVIORAL DISTURBANCE Status: Chronic Comment: at baseline. (6) LETI (acute kidney injury) Code(s): N17.9 - ACUTE KIDNEY FAILURE, UNSPECIFIED Status: Resolved - Plan * . Review of Systems - Review of Systems Cardiovascular: negative: chest pain, palpitations, orthopnea, paroxysmal nocturnal dyspnea, edema, light headedness Musculoskeletal: negative: Neck Pain, Shoulder Pain, Arm Pain, Back Pain, Hand Pain, Leg Pain, Foot Pain - Medications/Allergies Allergies/Adverse Reactions: Allergies Allergy/AdvReac Type Severity Reaction Status Date / Time NSAIDS (Non-Steroidal Allergy Verified 05/27/18 04:51 Anti-Inflamma Medications: Current Medications Acetaminophen (Tylenol) 650 mg PO Q4H PRN PRN Reason: Headache/Fever/Mild Pain (1-3) Amiodarone HCl (Cordarone) 200 mg PO DAILY [facility] Last Admin: 09/12/18 09:57 Dose: 200 mg Ascorbic Acid (Vitamin C) 500 mg PO DAILY [facility] Last Admin: 09/12/18 09:57 Dose: 500 mg Aspirin (Ecotrin) 325 mg PO 2100 [facility] Last Admin: 09/11/18 21:34 Dose: 325 mg Atorvastatin Calcium (Lipitor) 40 mg PO HS [facility] Last Admin: 09/11/18 21:34 Dose: 40 mg Bisacodyl (Dulcolax) 10 mg PO DAILYPRN PRN PRN Reason: Constipation Bisacodyl (Dulcolax) 10 mg PO DAILYPRN PRN PRN Reason: Constipation Cholecalciferol (Vitamin D3) 5,000 units PO DAILY [facility] Last Admin: 09/12/18 09:56 Dose: 5,000 units Cyanocobalamin (Vitamin B-12) 1,000 mcg PO DAILY [facility] Last Admin: 09/12/18 12:27 Dose: 1,000 mcg Docusate Sodium (Colace) 100 mg PO DAILY PRN PRN Reason: Constipation Heparin Sodium (Porcine) (Heparin) 5,000 units SC TID [facility] Last Admin: 09/12/18 11:37 Dose: Not Given Sodium Chloride (Normal Saline 0.9%) 1,000 mls @ 70 mls/hr IV .[id number] [facility] Last Admin: 09/12/18 02:59 Dose: Not Given Levothyroxine Sodium (Synthroid) 25 mcg PO 0600 [facility] Loratadine (Claritin) 10 mg PO DAILY PRN PRN Reason: Allergies Memantine (Namenda) 5 mg PO DAILY [facility] Last Admin: 09/12/18 09:57 Dose: 5 mg Metronidazole (Flagyl) 250 mg PO QID [facility] Last Admin: 09/12/18 12:28 Dose: 250 mg Mometasone Furoate (Asmanex Hfa 200 Mcg) 1 puff INH 1830 [facility] Last Admin: 09/11/18 18:58 Dose: Not Given Multivitamins (Theragran) 1 tab PO DAILY [facility] Last Admin: 09/12/18 09:56 Dose: 1 tab Pantoprazole Sodium (Protonix) 40 mg PO DAILY [facility] Last Admin: 09/12/18 09:57 Dose: 40 mg Saccharomyces Boulardii (Florastor) 250 mg PO DAILY [facility] Last Admin: 09/12/18 09:56 Dose: 250 mg Senna/Docusate Sodium (Senokot S) 2 tab PO BID PRN PRN Reason: Constipation Sodium Chloride (Flush - Normal Saline) 10 ml IVF Q12HR [facility] Last Admin: 09/12/18 11:38 Dose: Not Given Sodium Chloride (Flush - Normal Saline) 10 ml IVF PRN PRN PRN Reason: Saline Flush
[2018-09-12] MEDS: Mometasone 200 MCG HFA INHALER INH SCH (19:16)
[2018-09-12] MEDS: Atorvastatin Calcium 40 MG TAB PO SCH (21:53)
[2018-09-12] MEDS: Aspirin 325 mg Enteric Coated Tablet PO SCH (21:53)
[2018-09-13] MEDS: Sodium Chloride 0.9% 1,000 ML IV SCH ×2 (02:05→17:10)
[2018-09-13] MEDS: Levothyroxine Sodium 25 MCG TAB PO SCH (05:06)
[2018-09-13 08:16] LABS: #Lymphocytes 0.8 thou/uL (1.20-3.40); #Monocytes 0.2 thou/uL (0.11-0.59); #Neutrophils 3.7 thou/uL (1.40-6.50); %Basophils 0.5 % (0.0-1.0); %Eosinophils 0.9 % (0.0-10.0); %Lymphocytes 16.1 % (21.0-51.0); %Neutrophils 77.5 % (42.0-75.0); Hemoglobin 8.6 g/dL (14.0-18.0); Mean Corpuscular HGB CONC 32.9 g/dL (32.0-36.0); Mean Corpuscular Hemoglobin 36.3 pg (27.0-31.0); Platelet Count 138 thou/uL (130-400); RBC Distribution Width 16.6 % (11.5-14.5); Red Blood Cell (RBC) Count 2.36 mill/uL (4.70-6.10); White Blood Cell (WBC) Count 4.8 thou/uL (4.8-10.8)
[2018-09-13 08:34] LABS: Anion Gap 12 mmol/L (10-20); BUN (Urea Nitrogen) 25 mg/dL (8.4-25.7); Calc. Creatinine Clearance 41 mL/min (70-130); Calcium 8.5 mg/dL (7.8-10.44); Carbon Dioxide 16 mmol/L (23-31); Chloride 119 mmol/L (98-107); Estimated GFR-MDRD 74; Glucose 89 mg/dL (83-110); Potassium 3.8 mmol/L (3.5-5.1); Sodium 143 mmol/L (136-145)
--- NOTE | 2018-09-13 10:26 | PDOC.PN ---
- Subjective Encounter Start Date: 09/13/18 Encounter Start Time: 07:00 Pt seen for followup re: acute encephalopathy. Denies chest pain, shortness of brath, fevers or chills. - Objective Resuscitation Status: Resuscitation Status CHEM:Chem Code Only MAR Reviewed: Yes Vital Signs & Weight: Vital Signs (12 hours) Temp Pulse Resp BP Pulse Ox 09/13/18 08:00 97.5 F L 61 20 122/61 96 09/13/18 03:35 98.5 F 59 L 13 115/64 97 09/13/18 00:08 98.5 F 60 18 147/85 H 96 Weight Admit Weight 122 lb 3.2 oz Weight 122 lb 3.2 oz I&O: 09/12/18 09/13/18 09/14/18 06:59 06:59 06:59 Intake Total 1420 2262 Output Total 1050 375 Balance 370 1887 Result Diagrams: 09/13/18 06:22 09/13/18 06:22 Additional Labs: Accuchecks 09/09/18 10:42 POC Glucose 111 H EKG Reviewed by me: Yes (Tele: electronic AV-paced) Phys Exam - Physical Examination Constitutional: NAD HEENT: moist MMs Neck: supple Respiratory: clear to auscultation bilateral Cardiovascular: RRR Gastrointestinal: soft LUE edema LUE weakness Psychiatric: normal affect Dx/Plan (1) Encephalopathy acute Code(s): G93.40 - ENCEPHALOPATHY, UNSPECIFIED Status: Acute Comment: Improved (2) Pancytopenia Code(s): D61.818 - OTHER PANCYTOPENIA Status: Acute Comment: hemoglobin improving, white count and thrombocytopenia resolved. (3) Ischemic cerebrovascular accident (CVA) Code(s): I63.9 - CEREBRAL INFARCTION, UNSPECIFIED Status: Acute Comment: on aspirin and statin (4) Demand ischemia of myocardium Code(s): I24.8 - OTHER FORMS OF ACUTE ISCHEMIC HEART DISEASE Status: Acute Comment: nil acute (5) Hypothyroidism Code(s): E03.9 - HYPOTHYROIDISM, UNSPECIFIED Status: Acute Comment: started on synthroid (6) Dementia Code(s): F03.90 - UNSPECIFIED DEMENTIA WITHOUT BEHAVIORAL DISTURBANCE Status: Chronic Comment: at baseline. (7) LETI (acute kidney injury) Code(s): N17.9 - ACUTE KIDNEY FAILURE, UNSPECIFIED Status: Resolved - Plan * . Review of Systems - Review of Systems Cardiovascular: negative: chest pain, palpitations, orthopnea, paroxysmal nocturnal dyspnea, edema, light headedness Gastrointestinal: negative: Nausea, Vomiting, Abdominal Pain, Diarrhea, Constipation, Melena, Hematochezia - Medications/Allergies Allergies/Adverse Reactions: Allergies Allergy/AdvReac Type Severity Reaction Status Date / Time NSAIDS (Non-Steroidal Allergy Verified 05/27/18 04:51 Anti-Inflamma Medications: Current Medications Acetaminophen (Tylenol) 650 mg PO Q4H PRN PRN Reason: Headache/Fever/Mild Pain (1-3) Amiodarone HCl (Cordarone) 200 mg PO DAILY [facility] Last Admin: 09/12/18 09:57 Dose: 200 mg Ascorbic Acid (Vitamin C) 500 mg PO DAILY [facility] Last Admin: 09/12/18 09:57 Dose: 500 mg Aspirin (Ecotrin) 325 mg PO 2100 [facility] Last Admin: 09/12/18 21:53 Dose: 325 mg Atorvastatin Calcium (Lipitor) 40 mg PO HS [facility] Last Admin: 09/12/18 21:53 Dose: 40 mg Bisacodyl (Dulcolax) 10 mg PO DAILYPRN PRN PRN Reason: Constipation Last Admin: 09/13/18 05:06 Dose: 10 mg Cholecalciferol (Vitamin D3) 5,000 units PO DAILY [facility] Last Admin: 09/12/18 09:56 Dose: 5,000 units Cyanocobalamin (Vitamin B-12) 1,000 mcg PO DAILY [facility] Last Admin: 09/12/18 12:27 Dose: 1,000 mcg Docusate Sodium (Colace) 100 mg PO DAILY PRN PRN Reason: Constipation Sodium Chloride (Normal Saline 0.9%) 1,000 mls @ 70 mls/hr IV .[id number] [facility] Last Admin: 09/13/18 02:05 Dose: 1,000 mls Levothyroxine Sodium (Synthroid) 25 mcg PO 0600 [facility] Last Admin: 09/13/18 05:06 Dose: 25 mcg Loratadine (Claritin) 10 mg PO DAILY PRN PRN Reason: Allergies Memantine (Namenda) 5 mg PO DAILY [facility] Last Admin: 09/12/18 09:57 Dose: 5 mg Metronidazole (Flagyl) 250 mg PO QID [facility] Last Admin: 09/12/18 21:53 Dose: 250 mg Mometasone Furoate (Asmanex Hfa 200 Mcg) 1 puff INH 1830 [facility] Last Admin: 09/12/18 19:16 Dose: Not Given Multivitamins (Theragran) 1 tab PO DAILY [facility] Last Admin: 09/12/18 09:56 Dose: 1 tab Pantoprazole Sodium (Protonix) 40 mg PO DAILY [facility] Last Admin: 09/12/18 09:57 Dose: 40 mg Saccharomyces Boulardii (Florastor) 250 mg PO DAILY [facility] Last Admin: 09/12/18 09:56 Dose: 250 mg Senna/Docusate Sodium (Senokot S) 2 tab PO BID PRN PRN Reason: Constipation Sodium Chloride (Flush - Normal Saline) 10 ml IVF Q12HR [facility] Last Admin: 09/12/18 21:58 Dose: Not Given Sodium Chloride (Flush - Normal Saline) 10 ml IVF PRN PRN PRN Reason: Saline Flush
[2018-09-13] MEDS: Saccharomyces boulardii 250 MG CAP PO SCH (10:54)
[2018-09-13] MEDS: Cyanocobalamin (Vitamin B-12) 1,000 MCG TAB PO SCH (10:55)
[2018-09-13] MEDS: metroNIDAZOLE 250 MG TAB PO SCH ×4 (10:55→21:17)
[2018-09-13] MEDS: Ascorbic Acid 500 mg Chewable Tablet PO SCH (10:56)
[2018-09-13] MEDS: Amiodarone 200 MG TAB PO SCH (10:56)
[2018-09-13] MEDS: Multivit, Therapeutic 1 TAB PO SCH (10:56)
--- NOTE | 2018-09-13 13:13 | PRG ---
DATE OF SERVICE: 09/13/2018 SERVICE: Renal Medicine. SUBJECTIVE: Mr. Bailey is an 87-year-old white male, who was admitted for mental status change. He was found to have CVA. We were consulted for his acute kidney injury. We felt that this was all hem odynamically mediated renal dysfunction. He received crystalloids and colloids. Over time, renal fu nction dramatically improved. No other complaints. Awaiting placement. No acute events noted last night. Denies any chest pain or shortness of breath. OBJECTIVE: VITAL SIGNS: Blood pressure 122/61, heart rate 61, respiratory rate 20, temperature 97.5, pulse ox 9 8%. GENERAL: Awake, alert, comfortable, not in distress SKIN: Adequate turgor. HEENT: Pinkish conjunctivae, anicteric sclerae. NECK: No neck mass, no carotid bruits, no JVD. CHEST: No deformities. LUNGS: Decreased breath sounds. HEART: Normal sinus rhythm. No murmur, no gallops, no rubs. ABDOMEN: Globular, soft, nontender. No masses. EXTREMITIES: No edema, no deformities. MEDICATIONS: On 09/13/2018 were reviewed. LABORATORY DATA: On 09/13/2018, white count 4.8, hemoglobin 8.6, hematocrit 26. Sodium 143, potassi um 3.8, chloride 119, carbon dioxide 16, BUN 25, creatinine 0.96, glucose 89, calcium 8.5. ASSESSMENT AND PLAN: 1. Hypothyroidism. The patient recently was started on Synthroid 25 mcg daily. 2. Acute kidney injury - hemodynamically mediated renal dysfunction. Much improved. GFR/renal func tion is now within normal. I would continue current normal saline at 70 mL per hour due to his decre ased p.o. intake. 3. Mental status change - much improved. Of note, he has decreased hearing that may be the reason i s not as responsive to verbal stimuli. I did speak with the patient and he is able to follow simple commands. Due to the much improved renal function, we will be signing off. Please recall if needed.
[2018-09-13] MEDS: Mometasone 200 MCG HFA INHALER INH SCH (18:50)
[2018-09-13] MEDS: Aspirin 325 mg Enteric Coated Tablet PO SCH (21:17)
[2018-09-13] MEDS: Atorvastatin Calcium 40 MG TAB PO SCH (21:17)
[2018-09-14] MEDS: Levothyroxine Sodium 25 MCG TAB PO SCH (05:22)
[2018-09-14] MEDS: Saccharomyces boulardii 250 MG CAP PO SCH (09:12)
[2018-09-14] MEDS: metroNIDAZOLE 250 MG TAB PO SCH ×2 (09:12→12:49)
[2018-09-14] MEDS: Amiodarone 200 MG TAB PO SCH (09:15)
[2018-09-14] MEDS: Multivit, Therapeutic 1 TAB PO SCH (09:16)
[2018-09-14] MEDS: Cyanocobalamin (Vitamin B-12) 1,000 MCG TAB PO SCH (09:17)
[2018-09-14] MEDS: Ascorbic Acid 500 mg Chewable Tablet PO SCH (09:17)
[2018-09-14] MEDS: Sodium Chloride 0.9% 1,000 ML IV SCH (10:09)
[2018-09-14 11:44] VITALS: BP 111/72; TEMP 97.5
--- NOTE | 2018-09-14 22:55 | DIS ---
DATE OF ADMISSION: 09/08/2018 DATE OF DISCHARGE: 09/14/2018 PRIMARY CARE PROVIDER: Reji Esqueda M.D. CONDITION OF PATIENT ON THE DAY OF DISCHARGE: Stable. I assessed Mr. Bailey on the day of discharge . He denied any chest pain or shortness of breath. PHYSICAL EXAMINATION: VITAL SIGNS: Stable. CARDIOVASCULAR: S1 and S2 are heard, regular. LUNGS: Clear to auscultation bilaterally. DISCHARGE DIAGNOSES: 1. Acute encephalopathy. 2. Pancytopenia. 3. Ischemic cerebrovascular accident. 4. Demand ischemia of myocardium. 5. Hypothyroidism. 6. Acute kidney injury. CONSULTATIONS DURING THIS HOSPITALIZATION: Nephrology, Dr. Romero; Neurology, Dr. Jonas; and Cardiolo gy, Dr. Greene. DISCHARGE MEDICATIONS: Acetaminophen 650 mg every 6 hours as needed, amiodarone 200 mg daily, vitami n C 500 mg daily, vitamin D3 5000 units daily, vitamin B12 1000 mcg daily, docusate 100 mg daily as n eeded, Flovent 50 mcg daily as needed, Claritin 10 mg daily as needed, Namenda 5 mg daily, multivitam ins 1 capsule daily, omeprazole 20 mg daily, aspirin 325 mg daily, Lipitor 40 mg at bedtime, Synthroi d 25 mcg daily, and Florastor 250 mg daily. HOSPITAL COURSE: Mr. Bailey is a pleasant 87-year-old gentleman, who was admitted to [facility] on 09/08/2018 for acute metabolic encephalopathy, likely multifactorial. He had a recent ischemic cerebrovascular accident in the right frontoparietal region at the time of admission . He had left upper extremity weakness. MRI of the brain could not be done, because he has a pacemaker. A 2D echocardiogram showed left vent ricular ejection fraction of 50%-55% and E/A flow reversal suggestive of diastolic dysfunction. Aranda tid Dopplers on 09/08/2018 did not show any hemodynamically significant stenosis of right or left int ernal carotid artery. He had acute kidney injury at the time of admission. He was seen by Nephrology Service. He received albumin infusions, with resolution of acute kidney injury. Creatinine at the time of admission was 3.21 and it decreased to 0.96 on 09/13/2018. He was also found to have hypothyroidism, with an elevated TSH of 46.8974, low free T3 of 1.26, and l ow free T4 of 0.42. He has been started on Synthroid during this hospitalization. His vitamin B12 level is elevated at 1405. I will leave it to the discretion of the primary care pro vider as to whether to continue his vitamin B12 supplementation. He was also found to have demand ischemia, with a troponin level that was elevated at 0.533 before tr ending down at the time of admission. He was seen by Cardiology service for the same. He has been started on aspirin and statin during this hospitalization, because of both stroke and dem and ischemia. On 09/13/2018, Mr. Bailey had a sodium of 143, potassium 3.8, and creatinine 0.96. White count was 4 800, hemoglobin 8.6, and platelet count 138,000. He had a drop in his hemoglobin during this hospitalization, 6.3 on 09/11/2018. He received 1 unit p acked RBC transfusion. His hemoglobin improved by the day of discharge. During this hospitalization , he had a fasting lipid profile, which showed triglycerides 88, cholesterol 126, LDL cholesterol 71, and HDL cholesterol 37. He was on metronidazole at the time of admission. This was discontinued at the time of discharge sin ce his course was completed. Many thanks for allowing me to participate in your patient's care. Please feel free to contact me wi th any questions or concerns. DISCHARGE DESTINATION: Home. TOTAL AMOUNT OF TIME SPENT COORDINATING THIS DISCHARGE: 32 minutes.
== END 2018-09-14 14:14 | DRG 64 ==
LOC: ERS 23:07 → 2NO 09-08 03:15 → 2SE 09-08 14:50
PROVIDERS: ADMIT Internal Medicine; ATTEND Internal Medicine
PROC: 30233N1 Transfusion of Nonautologous Red Blood Cells into Peripheral Vein, Percutaneous Approach (ICD-10-PCS; principal; 2018-09-11)
DX: I63.9 Cerebral infarction, unspecified (principal); G93.41 Metabolic encephalopathy; E43 Unspecified severe protein-calorie malnutrition; N17.9 Acute kidney failure, unspecified; I24.8 Other forms of acute ischemic heart disease; Z68.1 Body mass index [BMI] 19.9 or less, adult; I47.1 Supraventricular tachycardia; A04.72 Enterocolitis due to Clostridium difficile, not specified as recurrent; D61.818 Other pancytopenia; G81.94 Hemiplegia, unspecified affecting left nondominant side; F03.90 Unspecified dementia, unspecified severity, without behavioral disturbance, psychotic disturbance, mood disturbance, and anxiety; H91.90 Unspecified hearing loss, unspecified ear; D64.9 Anemia, unspecified; Z79.899 Other long term (current) drug therapy; Z95.810 Presence of automatic (implantable) cardiac defibrillator; N28.9 Disorder of kidney and ureter, unspecified; I25.2 Old myocardial infarction
CPT/HCPCS: 36415; 36416; 36430; 51702; 70450; 71045; 74176; 80048; 80053; 80061; 81003; 82550; 82553; 82607; 82728; 82746; 83540; 83550; 84439; 84443; 84481; 84484; 85025; 85610; 85730; 86850; 86900; 86901; 93005; 93306; 93880; 94664; 94760; G8978-GP-CN; G8979-GP-CK; G8987-GO-CN; G8988-GO-CN; G8989-GO-CN; G8996-GN-CK; G8997-GN-CK; J1644; P9016; P9047